=== PATIENT | female | born 2000 | race African-American/Black ===

== ENCOUNTER 2020-08-26 11:11 | Emergency (ER) | payer OTHER, SELFPAY ==
[2020-08-26 11:30] VITALS: BP 123/58; PULSE 81; RESP 16; TEMP 36.9; O2SAT 98; BMI 28.3
[2020-08-26] MEDS: Azithromycin 500 MG TABLET 1000 MG PO (12:28)
[2020-08-26] MEDS: cefTRIAXone sodium 250 MG, Lidocaine HCl 1 % MPF 0.9 ML IM (12:28)
--- NOTE | 2020-08-26 12:43 | US_ITS ---
EXAMINATION: US PELVIS TRANSVAGINAL CLINICAL INFORMATION: Bilateral adnexal tenderness. Vaginal discharge. Rule out TOA COMPARISON: None. TECHNIQUE: Transcutaneous and transvaginal pelvic ultrasound. Transvaginal scanning was performed after voiding to better evaluate the endometrium and adnexa. FINDINGS: The uterus measures 8.7 x 3.4 x 3.7 cm. The uterus is anteverted. No suspicious abnormalities region of the cervix. The uterine contour is smooth. The endometrium measures 0.8 cm. No focal abnormalities within the myometrium. The right ovary measures approximately 2.9 x 2.7 x 2.1 cm. The calculated right ovarian volume is approximately 8.6 mL. There is normal vascular flow present within the right ovary. There is a 1.6 x 1.1 x 1.3 cm dominant follicle/cyst. No abnormal mass. The left ovary measures 2.5 x 1.7 x 1.5 cm. The calculated left ovarian volume is approximately 3.3 mL. No abnormal left adnexal mass. Normal vascular flow. There is a small amount of free pelvic fluid. No tubo-ovarian abscess is appreciated. US/US pelvic ovarian doppler IMPRESSION: No tubo-ovarian abscess appreciated. Small amount of free fluid. No evidence of ovarian torsion
--- NOTE | 2020-08-26 12:44 | PC.NURSE ---
pelvic completed with pa. pt educated about seeing obgyn regularly if sexually active. pt laughing not enagaging in education. swabs obtained during pelvic sent to lab.
--- NOTE | 2020-08-26 12:53 | US_ITS ---
EXAMINATION: US PELVIS TRANSVAGINAL CLINICAL INFORMATION: Bilateral adnexal tenderness. Vaginal discharge. Rule out TOA COMPARISON: None. TECHNIQUE: Transcutaneous and transvaginal pelvic ultrasound. Transvaginal scanning was performed after voiding to better evaluate the endometrium and adnexa. FINDINGS: The uterus measures 8.7 x 3.4 x 3.7 cm. The uterus is anteverted. No suspicious abnormalities region of the cervix. The uterine contour is smooth. The endometrium measures 0.8 cm. No focal abnormalities within the myometrium. The right ovary measures approximately 2.9 x 2.7 x 2.1 cm. The calculated right ovarian volume is approximately 8.6 mL. There is normal vascular flow present within the right ovary. There is a 1.6 x 1.1 x 1.3 cm dominant follicle/cyst. No abnormal mass. The left ovary measures 2.5 x 1.7 x 1.5 cm. The calculated left ovarian volume is approximately 3.3 mL. No abnormal left adnexal mass. Normal vascular flow. There is a small amount of free pelvic fluid. No tubo-ovarian abscess is appreciated. US/US transvaginal IMPRESSION: No tubo-ovarian abscess appreciated. Small amount of free fluid. No evidence of ovarian torsion
--- NOTE | 2020-08-26 12:53 | US_ITS ---
EXAMINATION: US PELVIS TRANSVAGINAL CLINICAL INFORMATION: Bilateral adnexal tenderness. Vaginal discharge. Rule out TOA COMPARISON: None. TECHNIQUE: Transcutaneous and transvaginal pelvic ultrasound. Transvaginal scanning was performed after voiding to better evaluate the endometrium and adnexa. FINDINGS: The uterus measures 8.7 x 3.4 x 3.7 cm. The uterus is anteverted. No suspicious abnormalities region of the cervix. The uterine contour is smooth. The endometrium measures 0.8 cm. No focal abnormalities within the myometrium. The right ovary measures approximately 2.9 x 2.7 x 2.1 cm. The calculated right ovarian volume is approximately 8.6 mL. There is normal vascular flow present within the right ovary. There is a 1.6 x 1.1 x 1.3 cm dominant follicle/cyst. No abnormal mass. The left ovary measures 2.5 x 1.7 x 1.5 cm. The calculated left ovarian volume is approximately 3.3 mL. No abnormal left adnexal mass. Normal vascular flow. There is a small amount of free pelvic fluid. No tubo-ovarian abscess is appreciated. US/US pelvic complete IMPRESSION: No tubo-ovarian abscess appreciated. Small amount of free fluid. No evidence of ovarian torsion
--- NOTE | 2020-08-26 13:06 | ED_ITS ---
HPI - Abdominal Pain General Chief Complaint: Nausea/Vomiting/Diarrhea Stated Complaint: abd pain Time Seen by Provider: 08/26/20 11:34 Source: patient Mode of arrival: ambulatory History of Present Illness HPI narrative: 20-year-old female with a past medical history of asthma, recently treated for GC/chlamydia, presenting to ED complaining of vaginal discharge, vaginal spotting, and lower abdominal pain x couple days. Admits was recently treated for GC/chlamydia at [facility], and then had unprotected sexual intercourse with same partner in feels she contracted STIs again. LMP a few weeks ago. Also reports associated nausea. Denies fever, chills, vomiting, diarrhea, dysuria/hematuria MD elicited complaint: abdominal pain Related Data Allergies Allergy/AdvReac Type Severity Reaction Status Date / Time cucumber [CUCUMBER] Allergy Unknown RASH Unverified 06/15/20 16:58 peanut [PEANUT] Allergy Unknown RASH Unverified 06/15/20 16:58 Review of Systems Review of Systems Constitutional: No Weight loss, No Fever, No Chills Cardiovascular: No Chest Pain, No SOB Respiratory: No Cough, No Sputum, No Wheezing, No Smoke Exposure, No Dyspnea Gastrointestinal: + Nausea, No Vomiting, No Diarrhea, No Constipation, + Abdominal pain Genitourinary: + irregular bleeding, No Dysuria, No Urinary Frequency, No Hematuria, No Flank Pain, +vaginal discharge Skin: No Skin Lesions, No rash Yes all other systems are reviewed and are negative Physical Exam Vital Signs: Vital Signs: Last Vital Signs Temp 98.4 F 08/26/20 11:30 Pulse 81 08/26/20 11:30 Resp 16 08/26/20 11:30 BP 123/58 L 08/26/20 11:30 Pulse Ox 98 08/26/20 11:30 Body Mass Index 28.3 Const: General: cooperative and healthy appearing Orientation/consciousness: patient oriented x3 Limitations: no limitations HENMT: Head: Yes normal to inspection Ears: hearing grossly normal bilaterally General nose exam: Normal external nose present Face and sinus: Yes normal facial exam Eyes: General: appearance normal, both eyes and all related structures EOM: EOMs intact bilaterally Neck: Neck: Yes normal visual inspection Resp: Effort & Inspection: normal respiratory effort Cardio: Rate: regular rate GI: Inspection: Yes normal to inspection Palpation (GI): Soft to palpation, nontender, no guarding and not rigid : General: Yes no CVA tenderness External Female Exam: normal external appearance Speculum Exam - Vagina: abnormal vaginal discharge (thin) white and No vaginal bleeding Speculum Exam - Cervix: normal appearance of the cervix Bimanual exam- vagina & uterus: no cervical motion tenderness Bimanual Exam- Adnexa, other: tender bilaterally OB/external & speculum: No vaginal bleeding Back/Spine/Pelvis: Back: no CVA tenderness Skin: Rashes: no rashes Wounds: no wounds Neuro: General: patient oriented x3 Gait exam (Neuro): Normal gait present Extrem: General: Yes normal to inspection Course Course Course Narrative: -mild leukocytosis of 11.3, labs otherwise unremarkable, UA negative, urine negative -1416--ultrasound without TOA, small amount of free fluid. No evidence of torsion Lab and imaging results discussed with patient including worrisome signs and symptoms and strict return precautions. Patient verbalized understanding and is to follow-up with OBGYN MDM - Abdominal Pain MDM Narrative Medical decision making narrative: 20-year-old female with a past medical hi story of asthma, recently treated for GC/chlamydia, presenting to ED complaining of vaginal discharge, vaginal spotting, and lower abdominal pain x couple days. On exam VSS, NAD/well-appearing, abdomen soft/nontender, no CVAT. Thin white DC noted on pelvic exam, bilateral adnexal tenderness on bimanual, no CMT or abnormal masses. Concern for TOA vs ovarian cyst vs STI. Low concern for ovarian torsion/PID Patient agreeable to STI treatment with Rocephin and azithromycin in the ED Plan: Labs, UA, STI testing, pelvic ultrasound Lab Data Result diagrams: 08/26/20 13:02 08/26/20 13:02 Labs: Lab Results 08/26/20 08/26/20 08/26/20 Range/Units 13:02 13:02 13:02 WBC 11.3 H (4.8-10.8) X10*3/uL RBC 4.45 (4.20-5.50) X10*6/uL Hgb 13.4 (12.0-16.0) g/dl Hct 40.4 (37-47) % MCV 90.8 (80-98) fL MCH 30.1 (27.0-33.0) pg MCHC 33.2 (31.0-35.0) g/dl RDW 14.0 (11.0-16.0) % Plt Count 472 H (160-400) X10*3/uL MPV 9.1 L (9.4-12.3) fL Immature Gran % (Auto) 0.4 (0.0-0.4) % Neut % (Auto) 68.8 (45-73) % Lymph % (Auto) 21.1 (20-40) % [place] % (Auto) 3.7 (2-11) % Eos % (Auto) 5.6 H (0-4) % Baso % (Auto) 0.4 (0-2) % Lymph # (Auto) 2.4 (1.2-4.9) X10*3/uL [place] # (Auto) 0.4 (0.1-1.2) X10*3/uL Eos # (Auto) 0.6 H (0.0-0.4) X10*3/uL Baso # (Auto) 0.0 (0.0-0.2) X10*3/uL Abs Immat Gran (auto) 0.05 H (0.00-0.03) X10*3/uL Absolute Neuts (auto) 7.8 (2.0-8.3) X10*3/uL Absolute Nucleated RBC 0.000 (0.0-0.012) X10*3/uL Nucleated RBC % (auto) 0.0 (0.0-0.2) /100WBC Sodium 137 (135-145) mmol/L Potassium 4.7 (3.3-5.1) mmol/l Chloride 104 (96-108) mmol/L Carbon Dioxide 24 (22-29) mmol/L Anion Gap 14 (12-20) BUN 14 (9-16) mg/dL Creatinine 0.74 (0.5-1.4) mg/dL Estim Creat Clear Calc 115.7 Estimated GFR > 60 Random Glucose 88 (60-115) mg/dL Calcium 9.3 (8.4-10.2) mg/dL Total Bilirubin 0.4 (0.0-1.0) mg/dL Direct Bilirubin 0.2 (0.0-0.5) mg/dL AST 20 (5-31) U/L ALT 18 (0-31) U/L Alkaline Phosphatase 66 (39-117) U/L Total Protein 8.1 H (6.5-8.0) g/dL Albumin 4.5 (3.5-5.0) g/dL Urine Color YELLOW Urine Appearance CLEAR Urine pH 5.5 (5.0-8.0) Ur Specific [place] 1.025 (1.005-1.025) Urine Protein NEG (NEG-TRACE) MG/DL Urine Glucose (UA) NEG (NEG) MG/DL Urine Ketones NEG (NEG) MG/DL Urine Blood NEG (NEG) Urine Nitrite NEG (NEG) Ur Leukocyte Esterase NEG (NEG) Urine Test NEGATIVE (NEGATIVE) Discharge Plan Discharge Clinical Impression: STI (sexually transmitted infection), Vaginal discharge, Abdominal pain Patient Disposition: Home, Self-Care Instructions: Sexually Transmitted Diseases (ED) Additional Instructions: Your blood work and ultrasound were unremarkable today in the ED You were tested for multiple STIs, they take 2-3 days to result If something is positive you will get a phone call You were already treated for gonorrhea and chlamydia today in the ED You need to refrain from any sexual contact until her symptoms have resolved, and inform her partners of results If pain, discharge, or bleeding worsens or persists, you have fever, develop urine symptoms return to the ED Follow-up with OBGYN Referrals: Joseph Brewer MD [Physician] - 2 days PMF Past Medical History Attestation statement: The following information was validated with the patient. Medical History (Updated 08/26/20 @ 13:12 by TORIE Correa) Asthma Social History Social History Alcohol intake: never Smoked in Last 30 Days: No Use of substances other than those prescribed or required for medical reasons: No Advance Directives: No Advance Directives Information Provided: No
[2020-08-26 13:10] LABS: Basophils Percent Auto 0.4 % (0-2); Eosinophils Absolute Auto 0.6 X10*3/uL (0.0-0.4); Eosinophils Percent Auto 5.6 % (0-4); Glucose Urine UA NEG (NEG); Hematocrit 40.4 % (37-47); Hemoglobin 13.4 g/dl (12.0-16.0); Imm Gran Abs Auto 0.05 X10*3/uL (0.00-0.03); Imm Gran Pct Auto 0.4 % (0.0-0.4); Leukocyte Esterase Urine NEG (NEG); Lymphocytes Absolute Auto 2.4 X10*3/uL (1.2-4.9); Lymphocytes Percent Auto 21.1 % (20-40); MANUAL DIFF FLAG NO; Mean Corpuscular HGB Conc 33.2 g/dl (31.0-35.0); Mean Corpuscular Hemoglobin 30.1 pg (27.0-33.0); Mean Corpuscular Volume 90.8 fL (80-98); Mean Platelet Volume 9.1 fL (9.4-12.3); Monocytes Absolute Auto 0.4 X10*3/uL (0.1-1.2); Monocytes Percent Auto 3.7 % (2-11); Neutrophils Absolute Auto 7.8 X10*3/uL (2.0-8.3); Neutrophils Percent Auto 68.8 % (45-73); Nitrite Urine NEG (NEG); PH 5.5 (5.0-8.0); Platelet Count 472 X10*3/uL (160-400); Red Blood Count 4.45 X10*6/uL (4.20-5.50); Specific Gravity - Urine 1.025 (1.005-1.025); Urine Blood NEG (NEG); Urine Ketones NEG (NEG); Urine Protein NEG (NEG-TRACE); White Blood Count 11.3 X10*3/uL (4.8-10.8)
[2020-08-26 13:11] LABS: Appearance Urine CLEAR; Color Urine YELLOW; UPreg QC Valid YES
[2020-08-26 13:12] LABS: Urine Pregnancy NEGATIVE (NEGATIVE)
[2020-08-26 13:36] LABS: Alanine Aminotransferase 18 U/L (0-31); Albumin Level 4.5 g/dL (3.5-5.0); Alkaline Phosphatase 66 U/L (39-117); Anion Gap 14 (12-20); Aspartate Amino Transferase 20 U/L (5-31); Bilirubin Direct 0.2 mg/dL (0.0-0.5); Bilirubin Total 0.4 mg/dL (0.0-1.0); Blood Urea Nitrogen 14 mg/dL (9-16); Calcium 9.3 mg/dL (8.4-10.2); Carbon Dioxide 24 mmol/L (22-29); Chloride 104 mmol/L (96-108); Creatinine Clr Calc Pharmacy 115.7; Estimated Glomerular Filt Rate > 60; Glucose Random 88 mg/dL (60-115); Potassium 4.7 mmol/l (3.3-5.1); Sodium 137 mmol/L (135-145); Total Protein 8.1 g/dL (6.5-8.0)
[2020-08-26 14:53] LABS: CT PCR NOT DETECTED (Not Detect.); NG PCR NOT DETECTED (Not Detect.)
[2020-08-27 09:22] LABS: BV Int Neg Control Negative (Negative); BV Int Pos Control Positive (Positive)
== END 2020-08-26 14:30 | disposition home or self-care (01) ==
PROVIDERS: Physician Assistant; Emergency Provider Internal Medicine; PCP Specialist
DX: A56.02 Chlamydial vulvovaginitis (principal); N89.8 Other specified noninflammatory disorders of vagina; R10.9 Unspecified abdominal pain; Z20.2 Contact with and (suspected) exposure to infections with a predominantly sexual mode of transmission
CPT/HCPCS: 36415; 76830; 76856; 80048; 80076; 81003; 81025; 85025; 87480; 87491; 87510; 87591; 87660; 93975; 96372; 99283; 99284; J0696

== ENCOUNTER 2020-10-07 08:21 | Outpatient (REF) | payer OTHER, SELFPAY | END 2020-10-07 08:22 | disposition home or self-care (01) | LOC: HO.LAB 08:21 | PROVIDERS: Visit Provider Internal Medicine | DX: Z20.822 Contact with and (suspected) exposure to COVID-19 (principal) | CPT/HCPCS: 36415; C9803; U0003 ==

== ENCOUNTER 2020-11-07 14:28 | Emergency (ER) | payer OTHER, SELFPAY ==
[2020-11-07] VITALS (7 sets, daily range): BP systolic 109–133; BP diastolic 70–93; PULSE 67–92; RESP 16; TEMP 36.4–36.6; O2SAT 97–100; BMI 28.3
--- NOTE | ~2020-11-07 | US_ITS ---
EXAMINATION: US ABDOMEN LIMITED CLINICAL INFORMATION: Elevated lipase. Alcohol use. Nausea and vomiting.. COMPARISON: None TECHNIQUE: Real-time imaging of the right upper quadrant abdominal viscera. FINDINGS: PANCREAS: Heterogeneous parenchymal echogenicity, with. Tiny cystic foci beyond resolution of this exam LIVER: Normal. The liver is normal in size. The liver contour is normal. Parenchymal echogenicity is normal. No focal hepatic lesion. There is no intrahepatic biliary duct dilatation seen. GALLBLADDER: Normal. The gallbladder is physiologically distended without evidence of stones, sludge, polyps, wall thickening or pericholecystic fluid. COMMON BILE DUCT: Normal in caliber measuring 0.5 cm in diameter. RIGHT KIDNEY: Normal. No hydronephrosis. No renal calculi or focal parenchymal lesions. The kidney measures 11.7 cm in maximum dimension. FREE FLUID: None. US/US abdomen limited IMPRESSION: Heterogeneous pancreatic parenchymal echotexture, which is nonspecific, and possibly in part technical. Mild pancreatitis is considered. Exam otherwise unremarkable.
--- NOTE | 2020-11-07 17:39 | ED_ITS ---
HPI - Nausea/Vomiting/Diarrhea General Chief complaint: Nausea/Vomiting/Diarrhea Stated complaint: VOMITING Time Seen by Provider: 11/07/20 17:34 Source: patient Mode of arrival: ambulatory History of Present Illness HPI Narrative: 20-year-old female with a past medical history of asthma presenting to the ED complaining persistent nausea, vomiting, and generalized fatigue/weakness S/P drinking EtOH all night. Reports she is hung over. States drank a whole bottle of hard liquor last night. Has been unable to tolerate any p.o. today. Denies fall/trauma, dysuria/hematuria, fever, chills, suspicious food intake, recent travel. LMP last month. Denies illicit drug use MD elicited complaint: nausea, vomiting and abdominal pain Related Data Previous Rx's Medication Instructions Recorded acetaminophen [Tylenol Extra 500 mg PO Q6H PRN #20 tab 11/07/20 Strength] alum-mag hydroxide-simeth [Maalox 5 ml PO 5XD PRN #3000 ml 11/07/20 Advanced] famotidine [Pepcid] 20 mg PO DAILY #14 tab 11/07/20 ondansetron HCl [Zofran] 4 mg PO Q8H PRN #10 tab 11/07/20 Allergies Allergy/AdvReac Type Severity Reaction Status Date / Time cucumber [CUCUMBER] Allergy Unknown RASH Verified 11/07/20 14:36 peanut [PEANUT] Allergy Unknown RASH Verified 11/07/20 14:36 Review of Systems Review of Systems: Constitutional: No Weight loss, No Fever, No Chills Cardiovascular: No Chest Pain, No SOB Respiratory: No Cough, No Sputum Gastrointestinal: + Nausea, + Vomiting, No Diarrhea, No Constipation, +Abdominal pain Genitourinary: No irregular bleeding, No Dysuria, No Urinary Frequency, No Hematuria, No Flank Pain Musculoskeletal: No joint pain, No Myalgias, No Joint Swelling Skin: No Skin Lesions, No rash Yes all other systems are reviewed and are negative PMFSH Past Medical History Attestation statement: The following information was validated with the patient. Medical History (Updated 11/07/20 @ 19:22 by TORIE Correa) Asthma Social History Social History Alcohol intake: never Smoking Status: Never smoker Use of substances other than those prescribed or required for medical reasons: Yes Substance Use Type: Marijuana Substance Use Frequency: Daily Advance Directives: No Advance Directives Information Provided: No Physical Exam Vital Signs: Vital Signs: Last Vital Signs Temp 97.7 F 11/07/20 20:23 Pulse 70 11/07/20 20:23 Resp 16 11/07/20 20:23 BP 125/84 11/07/20 20:23 Pulse Ox 100 11/07/20 20:23 Body Mass Index 28.3 Const: General: cooperative and healthy appearing Orientation/consciousness: patient oriented x3 Limitations: no limitations HENMT: Head: Yes normal to inspection Ears: hearing grossly normal bilaterally General nose exam: Normal external nose present Face and sinus: Yes normal facial exam Eyes: General: appearance normal, both eyes and all related structures Neck: Neck: Yes normal visual inspection Resp: Effort & Inspection: normal respiratory effort Cardio: Rate: regular rate GI: Inspection: Yes normal to inspection Palpation (GI): Soft to palpation, Tenderness to palpation present (GI) in the epigastrum, no guarding and not rigid : General: Yes no CVA tenderness Back/Spine/Pelvis: Back: no CVA tenderness Skin: Rashes: no rashes Wounds: no wounds Neuro: General: patient oriented x3 Extrem: General: Yes normal to inspection Course Course Course Narrative: -leukocytosis of 14.9 likely from nausea/vomiting -lipase elevated 430, anticipated from EtOH use, will obtain abdomen ultrasound to rule out complicated pancreatitis. Patient is tolerating p.o., minimally tender on exam, nontoxic appearing, no need for CT at this time -UA and negative -2114-ultrasound showing mild pancreatitis. Patient is nontoxic appearing, tolerated p.o. to/crackles in the ED. Labs/imaging discussed including refraining from EtOH drinking. Discussed worrisome signs and symptoms including constant/unremitting pain/nausea/vomiting, or inability to tolerate p.o., Patient verbalized understanding feel safe for discharge home MDM - Nausea/Vomiting/Diarrhea MDM Narrative Medical decision making narrative: 20-year-old female with a past medical history of asthma presenting to the ED complaining persistent nausea, vomiting, and generalized fatigue/weakness S/P drinking EtOH all night. On exam VSS, NAD/well-appearing, nontoxic, abdomen soft, +mild epigastric ttp. Concern for dehydration/metabolic abnormalities vs pancreatitis. Rule out . Low concern for appendicitis/diverticulitis or cholecystitis Plan: Labs, IVF, p.o. challenge, re-evaluate Differential Diagnosis Differential diagnosis: Likely food poisoning, drug-induced nausea and vomiting and dehydration Medical Records Attestation: I reviewed the patient's medical records. Lab Data Attestation: I reviewed the patient's lab results. Result diagrams: 11/07/20 18:08 11/07/20 18:08 Labs: Lab Results 11/07/20 11/07/20 11/07/20 Range/Units 18:08 18:08 18:08 WBC 14.9 H (4.8-10.8) X10*3/uL RBC 4.79 (4.20-5.50) X10*6/uL Hgb 14.4 (12.0-16.0) g/dl Hct 43.7 (37-47) % MCV 91.2 (80-98) fL MCH 30.1 (27.0-33.0) pg MCHC 33.0 (31.0-35.0) g/dl RDW 13.4 (11.0-16.0) % Plt Count 356 (160-400) X10*3/uL MPV 10.0 (9.4-12.3) fL Immature Gran % (Auto) 0.3 (0.0-0.4) % Neut % (Auto) 78.5 H (45-73) % Lymph % (Auto) 14.7 L (20-40) % [place] % (Auto) 5.7 (2-11) % Eos % (Auto) 0.5 (0-4) % Baso % (Auto) 0.3 (0-2) % Lymph # (Auto) 2.2 (1.2-4.9) X10*3/uL [place] # (Auto) 0.9 (0.1-1.2) X10*3/uL Eos # (Auto) 0.1 (0.0-0.4) X10*3/uL Baso # (Auto) 0.0 (0.0-0.2) X10*3/uL Abs Immat Gran (auto) 0.04 H (0.00-0.03) X10*3/uL Absolute Neuts (auto) 11.7 H (2.0-8.3) X10*3/uL Absolute Nucleated RBC 0.000 (0.0-0.012) X10*3/uL Nucleated RBC % (auto) 0.0 (0.0-0.2) /100WBC Hold Blue Top SEE NOTE Sodium 140 (135-145) mmol/L Potassium 4.5 (3.3-5.1) mmol/L Chloride 101 (96-108) mmol/L Carbon Dioxide 24 (22-29) mmol/L Anion Gap 20 (12-20) BUN 9 (9-16) mg/dL Creatinine 0.81 (0.5-1.4) mg/dL Estim Creat Clear Calc 105.7 Estimated GFR > 60 Random Glucose 77 (60-115) mg/dL Calcium 9.8 (8.4-10.2) mg/dL Magnesium 2.2 (1.6-2.6) mg/dL Total Bilirubin 0.5 (0.0-1.0) mg/dL Direct Bilirubin 0.2 (0.0-0.5) mg/dL AST 30 D (5-31) U/L ALT 21 (0-31) U/L Alkaline Phosphatase 80 D (39-117) U/L Total Protein 8.9 H (6.5-8.0) g/dL Albumin 5.0 (3.5-5.0) g/dL Lipase 430 H (8-78) U/L Urine Color Urine Appearance Urine pH (5.0-8.0) Ur Specific [place] (1.005-1.025) Urine Protein (NEG-TRACE) MG/DL Urine Glucose (UA) (NEG) MG/DL Urine Ketones (NEG) MG/DL Urine Blood (NEG) Urine Nitrite (NEG) Ur Leukocyte Esterase (NEG) Urine RBC (0) /HPF Urine WBC (0-4) /HPF Ur Squamous Epith Cells /LPF Urine Bacteria /LPF Urine Test (NEGATIVE) 11/07/20 Range/Units 18:08 WBC (4.8-10.8) X10*3/uL RBC (4.20-5.50) X10*6/uL Hgb (12.0-16.0) g/dl Hct (37-47) % MCV (80-98) fL MCH (27.0-33.0) pg MCHC (31.0-35.0) g/dl RDW (11.0-16.0) % Plt Count (160-400) X10*3/uL MPV (9.4-12.3) fL Immature Gran % (Auto) (0.0-0.4) % Neut % (Auto) (45-73) % Lymph % (Auto) (20-40) % [place] % (Auto) (2-11) % Eos % (Auto) (0-4) % Baso % (Auto) (0-2) % Lymph # (Auto) (1.2-4.9) X10*3/uL [place] # (Auto) (0.1-1.2) X10*3/uL Eos # (Auto) (0.0-0.4) X10*3/uL Baso # (Auto) (0.0-0.2) X10*3/uL Abs Immat Gran (auto) (0.00-0.03) X10*3/uL Absolute Neuts (auto) (2.0-8.3) X10*3/uL Absolute Nucleated RBC (0.0-0.012) X10*3/uL Nucleated RBC % (auto) (0.0-0.2) /100WBC Hold Blue Top Sodium (135-145) mmol/L Potassium (3.3-5.1) mmol/L Chloride (96-108) mmol/L Carbon Dioxide (22-29) mmol/L Anion Gap (12-20) BUN (9-16) mg/dL Creatinine (0.5-1.4) mg/dL Estim Creat Clear Calc Estimated GFR Random Glucose (60-115) mg/dL Calcium (8.4-10.2) mg/dL Magnesium (1.6-2.6) mg/dL Total Bilirubin (0.0-1.0) mg/dL Direct Bilirubin (0.0-0.5) mg/dL AST (5-31) U/L ALT (0-31) U/L Alkaline Phosphatase (39-117) U/L Total Protein (6.5-8.0) g/dL Albumin (3.5-5.0) g/dL Lipase (8-78) U/L Urine Color YELLOW Urine Appearance CLEAR Urine pH 7.5 (5.0-8.0) Ur Specific [place] 1.020 (1.005-1.025) Urine Protein 1+ H (NEG-TRACE) MG/DL Urine Glucose (UA) NEG (NEG) MG/DL Urine Ketones NEG (NEG) MG/DL Urine Blood NEG (NEG) Urine Nitrite NEG (NEG) Ur Leukocyte Esterase NEG (NEG) Urine RBC 0-2 (0) /HPF Urine WBC 0 (0-4) /HPF Ur Squamous Epith Cells 1+ /LPF Urine Bacteria 1+ /LPF Urine Test NEGATIVE (NEGATIVE) Discharge Plan Discharge Clinical Impression: Acute pancreatitis Qualifiers: Pancreatitis type: alcohol induced Acute pancreatitis complication: unspecified Qualified Code(s): K85.20 - Alcohol induced acute pancreatitis without necrosis or infection Patient Disposition: Home, Self-Care Instructions: Pancreatitis (ED) Additional Instructions: Do not drink alcohol. You have an infection/inflammation of her pancreas from alcohol use. It is important that you are staying hydrated, drink plenty of fluids Zofran as antinausea medication, take as needed Follow-up with her primary care doctor as well as a GI doctor If you have persistent nausea/vomiting, develops fever, constant worsening/unbearable abdominal pain, or unable to eat or drink return to the ED immediately Prescriptions: New ondansetron HCl [Zofran] 4 mg tablet 4 mg PO Q8H PRN (Reason: nausea and vomiting) Qty: 10 RF: 0 acetaminophen [Tylenol Extra Strength] 500 mg tablet 500 mg PO Q6H PRN (Reason: pain or fever) Qty: 20 RF: 0 alum-mag hydroxide-simeth [Maalox Advanced] 200-200-20 mg/5 mL suspension 5 ml PO 5XD PRN (Reason: indigestion) Qty: 3000 RF: 0 famotidine [Pepcid] 20 mg tablet 20 mg PO DAILY Qty: 14 RF: 0 Referrals: Jackie Garner MD [Primary Care Provider] - 2 days Ruth Valdez MD [Physician] - 1 week
[2020-11-07] MEDS: 0.9 % Sodium Chloride 1,000 ML 999 ML IVCONT ×2 (18:09→20:23)
[2020-11-07] MEDS: Famotidine/PF 20 MG/2 ML VIAL IVPUSH (18:10)
[2020-11-07] MEDS: ondansetron HCL 4 MG/2 ML VIAL IVPUSH (18:10)
[2020-11-07] MEDS: Lidocaine HCl Viscous 2 % 15 ML SOLUTION MUCOUS MEM (18:10)
[2020-11-07 18:14] LABS: MANUAL DIFF FLAG NO
[2020-11-07 18:17] LABS: Glucose Urine UA NEG (NEG); Leukocyte Esterase Urine NEG (NEG); Nitrite Urine NEG (NEG); PH 7.5 (5.0-8.0); Urine Blood NEG (NEG); Urine Ketones NEG (NEG); Urine Protein 1+ MG/DL (NEG-TRACE)
[2020-11-07 18:18] LABS: Appearance Urine CLEAR; Color Urine YELLOW
[2020-11-07 18:19] LABS: UPreg QC Valid YES; Urine Pregnancy NEGATIVE (NEGATIVE)
[2020-11-07 18:20] LABS: Basophils Percent Auto 0.3 % (0-2); Eosinophils Absolute Auto 0.1 X10*3/uL (0.0-0.4); Eosinophils Percent Auto 0.5 % (0-4); Hematocrit 43.7 % (37-47); Hemoglobin 14.4 g/dl (12.0-16.0); Imm Gran Abs Auto 0.04 X10*3/uL (0.00-0.03); Imm Gran Pct Auto 0.3 % (0.0-0.4); Lymphocytes Absolute Auto 2.2 X10*3/uL (1.2-4.9); Lymphocytes Percent Auto 14.7 % (20-40); Mean Corpuscular Hemoglobin 30.1 pg (27.0-33.0); Mean Corpuscular Volume 91.2 fL (80-98); Monocytes Absolute Auto 0.9 X10*3/uL (0.1-1.2); Monocytes Percent Auto 5.7 % (2-11); Neutrophils Absolute Auto 11.7 X10*3/uL (2.0-8.3); Neutrophils Percent Auto 78.5 % (45-73); Platelet Count 356 X10*3/uL (160-400); Red Blood Count 4.79 X10*6/uL (4.20-5.50); Red Cell Distribution Width 13.4 % (11.0-16.0); White Blood Count 14.9 X10*3/uL (4.8-10.8)
[2020-11-07 18:24] LABS: Bacteria Urine 1+ /LPF; RBC Urine 0-2 /HPF (0); Squamous Epithelial Cell Urine 1+ /LPF; WBC Urine 0 /HPF (0-4)
[2020-11-07 18:46] LABS: Alanine Aminotransferase 21 U/L (0-31); Alkaline Phosphatase 80 U/L (39-117); Anion Gap 20 (12-20); Aspartate Amino Transferase 30 U/L (5-31); Bilirubin Direct 0.2 mg/dL (0.0-0.5); Bilirubin Total 0.5 mg/dL (0.0-1.0); Blood Urea Nitrogen 9 mg/dL (9-16); Calcium 9.8 mg/dL (8.4-10.2); Carbon Dioxide 24 mmol/L (22-29); Chloride 101 mmol/L (96-108); Creatinine Clr Calc Pharmacy 105.7; Estimated Glomerular Filt Rate > 60; Glucose Random 77 mg/dL (60-115); Magnesium 2.2 mg/dL (1.6-2.6); Potassium 4.5 mmol/L (3.3-5.1); Sodium 140 mmol/L (135-145); Total Protein 8.9 g/dL (6.5-8.0)
[2020-11-07 19:03] LABS: Lipase 430 U/L (8-78)
--- NOTE | 2020-11-07 20:22 | PC.NURSE ---
pt returned from ultrasound. reports nausea resolved. no episodes of vomiting since arrival. denies pain at this time.
== END 2020-11-07 21:35 | disposition home or self-care (01) ==
PROVIDERS: Physician Assistant; Emergency Provider Emergency Medicine; PCP Specialist
DX: K85.20 Alcohol induced acute pancreatitis without necrosis or infection (principal); R11.2 Nausea with vomiting, unspecified; Z79.899 Other long term (current) drug therapy
CPT/HCPCS: 36415; 76705; 80048; 80076; 81001; 81025; 83690; 83735; 85025; 96361; 96374; 96375; 99284; J2405

== ENCOUNTER 2021-01-18 11:03 | Outpatient (REF) | payer OTHER, SELFPAY ==
[2021-01-18 12:21] LABS: COVID-19 Test Negative (Negative)
== END 2021-01-18 11:04 | disposition home or self-care (01) ==
LOC: HO.LAB 11:03
PROVIDERS: Visit Provider Internal Medicine
DX: Z20.822 Contact with and (suspected) exposure to COVID-19 (principal)
CPT/HCPCS: 36415; 87635; C9803

== ENCOUNTER 2021-03-07 12:39 | Outpatient (REF) | payer OTHER, SELFPAY | END 2021-03-07 12:40 | disposition home or self-care (01) | LOC: HO.LAB 12:39 | PROVIDERS: PCP Specialist; Visit Provider Internal Medicine | DX: Z20.822 Contact with and (suspected) exposure to COVID-19 (principal) | CPT/HCPCS: U0003; U0005 ==

== ENCOUNTER 2021-06-12 15:47 | Outpatient (REF) | payer OTHER, SELFPAY | END 2021-06-12 15:48 | disposition home or self-care (01) | LOC: HO.LAB 15:47 | PROVIDERS: Visit Provider Internal Medicine | DX: Z20.822 Contact with and (suspected) exposure to COVID-19 (principal) | CPT/HCPCS: C9803; U0003; U0005 ==

== ENCOUNTER 2021-08-09 13:06 | Emergency (ER) | payer OTHER, SELFPAY ==
[2021-08-09 13:36] VITALS: BP 116/71; PULSE 75; RESP 18; TEMP 36.8; O2SAT 100; BMI 28.3
[2021-08-09 15:23] LABS: MANUAL DIFF FLAG NO
[2021-08-09 15:26] LABS: Basophils Absolute Auto 0.1 X10*3/uL (0.0-0.2); Basophils Percent Auto 0.5 % (0-2); Eosinophils Absolute Auto 0.4 X10*3/uL (0.0-0.4); Eosinophils Percent Auto 4.2 % (0-4); Hematocrit 40.4 % (37.0-47.0); Imm Gran Abs Auto 0.02 X10*3/uL (0.00-0.03); Imm Gran Pct Auto 0.2 % (0.0-0.4); Lymphocytes Absolute Auto 2.4 X10*3/uL (1.2-4.9); Lymphocytes Percent Auto 25.2 % (20-40); Mean Corpuscular HGB Conc 32.2 g/dl (31.0-35.0); Mean Corpuscular Hemoglobin 29.5 pg (27.0-33.0); Mean Corpuscular Volume 91.6 fL (80.0-98.0); Mean Platelet Volume 9.7 fL (9.4-12.3); Monocytes Absolute Auto 0.6 X10*3/uL (0.1-1.2); Monocytes Percent Auto 6.1 % (2-11); Neutrophils Absolute Auto 6.2 x10*3/uL (2.0-8.3); Neutrophils Percent Auto 63.8 % (45-73); Platelet Count 373 X10*3/uL (160-400); Red Blood Count 4.41 X10*6/uL (4.20-5.50); Red Cell Distribution Width 13.1 % (11.0-16.0); White Blood Count 9.7 X10*3/uL (4.8-10.8)
[2021-08-09 15:34] LABS: Appearance Urine CLEAR; Color Urine YELLOW; Glucose Urine UA NEG (NEG); Leukocyte Esterase Urine NEG (NEG); Nitrite Urine NEG (NEG); Specific Gravity - Urine >= 1.030 (1.005-1.025); Urine Blood NEG (NEG); Urine Ketones NEG (NEG); Urine Protein NEG (NEG-TRACE)
[2021-08-09 15:44] LABS: Alanine Aminotransferase 15 U/L (0-31); Albumin Level 4.8 g/dL (3.5-5.0); Alkaline Phosphatase 71 U/L (39-117); Anion Gap 11 (12-20); Aspartate Amino Transferase 19 U/L (5-31); Bilirubin Total 0.4 mg/dL (0.0-1.0); Blood Urea Nitrogen 10 mg/dL (9-16); Calcium 9.9 mg/dL (8.4-10.2); Carbon Dioxide 28 mmol/L (22-29); Chloride 102 mmol/L (96-108); Creatinine Clr Calc Pharmacy 111.8; Estimated Glomerular Filt Rate > 60; Glucose Random 85 mg/dL (60-115); Potassium 4.6 mmol/L (3.3-5.1); Sodium 136 mmol/L (135-145); Total Protein 8.2 g/dL (6.5-8.0)
== END 2021-08-09 16:45 | disposition left against medical advice (07) ==
PROVIDERS: Emergency Provider Emergency Medicine; PCP Specialist
DX: R10.9 Unspecified abdominal pain (principal)
CPT/HCPCS: 36415; 80053; 81003; 85025; 99283

== ENCOUNTER 2021-08-29 16:03 | Emergency (ER) | payer OTHER, SELFPAY ==
--- NOTE | ~2021-08-29 | XR_ITS ---
EXAMINATION: XR CHEST CLINICAL INFORMATION: Asthma COMPARISON: Chest x-ray 10/13/2019 TECHNIQUE: Frontal view of the chest was obtained. 4:36 PM FINDINGS: No significant abnormality is noted involving the heart, lungs, mediastinum, bony thorax or soft tissues. XR/XR chest 1V IMPRESSION: Unremarkable examination.
[2021-08-29 16:11] VITALS: BP 116/82; PULSE 116; RESP 20; TEMP 36.9; O2SAT 97; BMI 28.3
== END 2021-08-29 18:19 | disposition left against medical advice (07) ==
LOC: HO.ED 17:16
PROVIDERS: Emergency Provider Emergency Medicine; PCP Specialist
DX: J45.909 Unspecified asthma, uncomplicated (principal); R00.0 Tachycardia, unspecified
CPT/HCPCS: 71045; 99282; 99283

== ENCOUNTER 2021-08-29 21:33 | Inpatient (IN) | payer OTHER, SELFPAY ==
[2021-08-29 21:34] VITALS: BP 125/64; PULSE 137; RESP 26; TEMP 36.9; O2SAT 98; BMI 28.3
--- NOTE | 2021-08-29 22:30 | ED_ITS ---
HPI - Asthma General Chief Complaint: Asthma Stated Complaint: cough asthma Time Seen by Provider: 08/29/21 22:24 Source: patient Mode of arrival: ambulatory Limitations: no limitations History of Present Illness complaint: asthma attack , shortness of breath and wheezing Onset (ago): day(s) (started today) Severity: moderate Context: none known Associated symptoms: dry cough Asthma History: childhood onset Treatments Prior to Arrival: inhaled bronchodilator Related Data Home Medications Medication Instructions Recorded Confirmed No Known Home Meds 08/30/21 08/30/21 Allergies Allergy/AdvReac Type Severity Reaction Status Date / Time cucumber [CUCUMBER] Allergy Unknown RASH Verified 08/09/21 13:35 peanut [PEANUT] Allergy Unknown RASH Verified 08/09/21 13:35 Review of Systems Review of Systems: Constitutional : No Fever, No Chills ENT/Mouth : No Hoarseness, No sore throat, No Rhinorrhea Eyes: No Redness, No Discharge, No Vision Changes Cardiovascular : No Chest Pain, positive SOB, positive Dyspnea on Exertion, No Edema Respiratory : positive Cough, No Sputum, positive Wheezing, Gastrointestinal : No Nausea, No Vomiting, No Diarrhea, No abdominal Pain Genitourinary : No Dysuria, No Hematuria Musculoskeletal : No joint pain, No Myalgias Skin : No rash Neuro : No Weakness, No Numbness, No Headache Psych : No anxiety, depression Heme/Lymph: No Bruising, No Bleeding Endocrine : No Polyuria, No Polydipsia All other systems reviewed and are negative [facility] Past Medical History Attestation statement: The following information was validated with the patient. Medical History Asthma Social History Social History Alcohol intake: never Substance Use Type: Marijuana Advance Directives: No Advance Directives Information Provided: Yes Patient : No Physical Exam Vital Signs: Vital Signs: Last Vital Signs Temp 98.4 F 08/29/21 21:34 Pulse 117 H 08/29/21 22:44 Resp 26 H 08/29/21 21:34 BP 125/64 08/29/21 21:34 Pulse Ox 98 08/29/21 21:34 BMI result Body Mass Index 28.3 Appearance: Alert. Oriented X3. Mild acute distress. Eyes: Pupils equal, round and reactive to light. ENT: Pharynx normal. Neck: Normal inspection. Neck supple. CVS: tachycardic heart rate and rhythm. Pulses normal. Respiratory: Mild respiratory distress - retractions and tachypnea. Breath sounds diminished throughout with diffuse end exp wheezes Abdomen: Soft and nontender. Skin: Skin warm and dry. Normal skin color. Normal skin turgor. Extremities: No lower extremity edema. No calf ttp Neuro: Oriented X 3. No motor deficit. No sensory deficit. Course Course Course Narrative: still very tight and wheezy will admit for further treatments MDM - Asthma MDM Narrative Medical decision making narrative: 21 yo female with hx of asthma no prior intubations reports attack since this AM not responding to neb treatments at home at this time hour long 10mg neb, IV steroids, IV magnesium, had CXR earlier today that was negative, labs and COVID test. Dispo per results and findings. Lab Data Result diagrams: 08/29/21 22:35 08/29/21 22:35 Labs: Lab Results 08/29/21 08/29/21 08/29/21 Range/Units 22:35 22:35 22:35 WBC 13.9 H (4.8-10.8) X10*3/uL RBC 4.12 L (4.20-5.50) X10*6/uL Hgb 12.6 (12.0-16.0) g/dl Hct 36.8 L (37.0-47.0) % MCV 89.3 (80.0-98.0) fL MCH 30.6 (27.0-33.0) pg MCHC 34.2 (31.0-35.0) g/dl RDW 12.9 (11.0-16.0) % Plt Count 330 (160-400) X10*3/uL MPV 9.5 (9.4-12.3) fL Immature Gran % (Auto) 0.3 (0.0-0.4) % Neut % (Auto) 78.9 H (45-73) % Lymph % (Auto) 9.6 L (20-40) % [place] % (Auto) 8.4 (2-11) % Eos % (Auto) 2.4 (0-4) % Baso % (Auto) 0.4 (0-2) % Lymph # (Auto) 1.3 (1.2-4.9) X10*3/uL [place] # (Auto) 1.2 (0.1-1.2) X10*3/uL Eos # (Auto) 0.3 (0.0-0.4) X10*3/uL Baso # (Auto) 0.1 (0.0-0.2) X10*3/uL Abs Immat Gran (auto) 0.04 H (0.00-0.03) X10*3/uL Absolute Neuts (auto) 11.0 H (2.0-8.3) x10*3/uL Absolute Nucleated RBC 0.000 (0.0-0.012) X10*3/uL Nucleated RBC % (auto) 0.0 (0.0-0.2) /100WBC Sodium 138 (135-145) mmol/L Potassium 4.1 (3.3-5.1) mmol/L Chloride 106 (96-108) mmol/L Carbon Dioxide 20 L (22-29) mmol/L Anion Gap 16 (12-20) BUN 8 L (9-16) mg/dL Creatinine 0.82 (0.5-1.4) mg/dL Estim Creat Clear Calc 103.5 Estimated GFR > 60 Random Glucose 79 (60-115) mg/dL Calcium 9.7 (8.4-10.2) mg/dL COVID-19 (MAURY) Negative (Negative) COVID-19 Clin Com See Note ECG Data Attestation: I personally reviewed and interpreted this ECG as follows: ECG interpretation date: 08/30/21 ECG interpretation time: 00:11 Interpretation: Rate: 134 Rhythm: sinus tachycardia [place]: normal Normal P waves. Normal JADEN. Normal QRS complex. ST T wave : nonspecific, no RUTH qTC: normal prior studies: no sig ischemia The study has been interpreted contemporaneously by me. . Critical Care Time Critical Care Time Critical Care Time: Yes Total Critical Care Time: 45 Attestation: repeat assessments, hour long neb treatments I attest to this time spent taking care of the patient Discharge Plan Discharge Clinical Impression: Asthma with acute exacerbation Qualifiers: Asthma severity: moderate Asthma persistence: persistent Qualified Code(s): J45.41 - Moderate persistent asthma with (acute) exacerbation Patient Disposition: Admitted As Inpatient
[2021-08-29 22:39] LABS: Basophils Absolute Auto 0.1 X10*3/uL (0.0-0.2); Basophils Percent Auto 0.4 % (0-2); Eosinophils Absolute Auto 0.3 X10*3/uL (0.0-0.4); Eosinophils Percent Auto 2.4 % (0-4); Hematocrit 36.8 % (37.0-47.0); Hemoglobin 12.6 g/dl (12.0-16.0); Imm Gran Abs Auto 0.04 X10*3/uL (0.00-0.03); Imm Gran Pct Auto 0.3 % (0.0-0.4); Lymphocytes Absolute Auto 1.3 X10*3/uL (1.2-4.9); Lymphocytes Percent Auto 9.6 % (20-40); MANUAL DIFF FLAG NO; Mean Corpuscular HGB Conc 34.2 g/dl (31.0-35.0); Mean Corpuscular Hemoglobin 30.6 pg (27.0-33.0); Mean Corpuscular Volume 89.3 fL (80.0-98.0); Mean Platelet Volume 9.5 fL (9.4-12.3); Monocytes Absolute Auto 1.2 X10*3/uL (0.1-1.2); Monocytes Percent Auto 8.4 % (2-11); Neutrophils Percent Auto 78.9 % (45-73); Platelet Count 330 X10*3/uL (160-400); Red Blood Count 4.12 X10*6/uL (4.20-5.50); Red Cell Distribution Width 12.9 % (11.0-16.0); White Blood Count 13.9 X10*3/uL (4.8-10.8)
[2021-08-29] MEDS: Magnesium Sulfate/H2O 2 GM/50 ML PIGGYBACK IV (22:40)
[2021-08-29] MEDS: methylPREDNISolone Sod Succ 125 MG/2 ML VIAL IVPUSH (22:42)
[2021-08-29] MEDS: Albuterol Sulfate (0.083%) 2.5 MG/3 ML VIAL.NEB 10 MG INHALE (22:43)
[2021-08-29 22:44] VITALS: PULSE 117; O2SAT 98
[2021-08-29] MEDS: Benzonatate 100 MG CAPSULE PO (22:44)
[2021-08-29 22:52] LABS: Anion Gap 16 (12-20); Blood Urea Nitrogen 8 mg/dL (9-16); Calcium 9.7 mg/dL (8.4-10.2); Carbon Dioxide 20 mmol/L (22-29); Chloride 106 mmol/L (96-108); Creatinine Clr Calc Pharmacy 103.5; Estimated Glomerular Filt Rate > 60; Glucose Random 79 mg/dL (60-115); Potassium 4.1 mmol/L (3.3-5.1); Sodium 138 mmol/L (135-145)
[2021-08-29 23:02] LABS: COVID-19 Test Negative (Negative)
[2021-08-29] MEDS: HYDROcodone/Homat 5/1.5/5 ML 5 ML SYRUP PO (23:29)
[2021-08-30] VITALS (10 sets, daily range): BP systolic 99–146; BP diastolic 60–86; PULSE 84–113; RESP 18–23; TEMP 36.3–37.2; O2SAT 88–99; BMI 28.0
--- NOTE | 2021-08-30 00:02 | ECG_ITS ---
Test Reason : TACHY Blood Pressure : / mmHG Vent. Rate : 134 BPM Atrial Rate : 134 BPM P-R Int : 118 ms QRS Dur : 080 ms QT Int : 308 ms P-R-T Axes : 080 088 036 degrees QTc Int : [address] & T wave abnormality, consider inferior ischemia Abnormal ECG No previous ECGs available Referred By: Ann Marie Goodman Electronically Signed By:SANIA GORMAN
--- NOTE | 2021-08-30 00:04 | PM.IMHP ---
History of Present Illness Date of Service: 08/30/21 Chief Complaint: SOB 21-year-old female with history of asthma presents to the hospital with complaints of shortness of breath wheezing cough for the past 2 days. Patient reports that last night was very severe where she could not sleeve, she tried her DuoNeb, albuterol inhalers with no success at relieving her symptoms are for decided to come to the hospital. Patient denies any fever but has chills, cough is dry and nonproductive, has no headache no change in vision, no dizziness, no lightheadedness, no chest pain, no abdominal pain nausea or vomiting, no diarrhea constipation, no urinary symptoms and no lower extremity edema On arrival to the ED patient hemodynamically stable with elevated heart rate of 116 that is now normalized Labs are unremarkable COVID-19 patient given multiple breathing treatments as well as high-dose steroids with no significant improvement of her symptoms therefore she will be admitted for further management of her asthma exacerbation Review of Systems Review of Systems: Yes all other systems are reviewed and are negative [facility] Medical History Asthma Family History (Updated 08/30/21 @ 06:30 by Salvador Lindo MD) Other No pertinent family history Surgical History (Updated 08/30/21 @ 06:30 by Salvador Lindo MD) No pertinent past surgical history Social History Household Members: None Housing: Homeless Do you presently have visiting nurse or other home services: No Alcohol intake: never Patient Tobacco Use Status: Never used Tobacco Second Hand Smoke Exposure: No Use of substances other than those prescribed or required for medical reasons: No Substance Use Type: Marijuana Substance Use Type Other:: markus Substance Use Frequency: Weekly Last Used Substance: Days (ago) Currently Displaying Signs/Symptoms of Drug Intoxication Withdrawal: No Any prior treatment program specific to substance use: No Have you been hit, kicked, punched, or otherwise hurt by someone within the past year? If so, by whom?: No Do you feel safe in your current relationship?: No Current Relationship Is there a partner from a previous relationship who is making you feel unsafe now?: No Are you made to feel afraid or neglected: No Advance Directives: No Advance Directives Information Provided: Yes Do you have thoughts of harming others: None Do you have a plan to hurt others: No Plan Recently lost weight without trying: No Eating poorly because of decreased appetite: Yes Nutrition Risks: No Nutritional Risk Patient : No : No Poor oral hygiene: No Meds Allergies Allergy/AdvReac Type Severity Reaction Status Date / Time cucumber [CUCUMBER] Allergy Unknown RASH Verified 08/09/21 13:35 peanut [PEANUT] Allergy Unknown RASH Verified 08/09/21 13:35 Active Medications: Current Medications Magnesium Sulfate (Magnesium Sulfate/H2o) 2 gm in 50 mls @ 25 mls/hr IV ONCE ONE Stop: 08/30/21 00:23 Last Admin: 08/29/21 22:40 Dose: 25 mls/hr Documented by: Home Medications Medication Instructions Recorded Confirmed Last Taken Type No Known Home Meds 08/30/21 08/30/21 Unknown History Physical Exam Vital Signs and Narrative: Vital Signs: Last Vital Signs Temp 98.4 F 08/29/21 21:34 Pulse 117 H 08/29/21 22:44 Resp 26 H 08/29/21 21:34 BP 125/64 08/29/21 21:34 Pulse Ox 98 08/29/21 21:34 BMI result Body Mass Index 28.3 Const: General: cooperative and no acute distress Orientation/consciousness: patient oriented x3 Eyes: General: appearance normal, both eyes and all related structures Pupils: Equal, round and reactive pupils present Resp: Other: expiratory wheezing Effort & Inspection: normal respiratory effort Cardio: Rate: regular rate Rhythm: regular rhythm GI: Palpation (GI): Soft to palpation Auscultation: normal bowel sounds Skin: General skin exam: no rashes or lesions noted Neuro: General: patient oriented x3 Cranial nerves: Yes Equal, round and reactive pupils present Cognition (Neuro): normal cognition Extrem: General: Yes normal to inspection and Yes no pedal edema Results Labs CBC and Chem 7: 08/29/21 22:35 08/29/21 22:35 Labs: Laboratory Results - last 24 hr 08/29/21 08/29/21 08/29/21 22:35 22:35 22:35 MCV 89.3 MCH 30.6 MCHC 34.2 RDW 12.9 Plt Count 330 MPV 9.5 Immature Gran % (Auto) 0.3 Neut % (Auto) 78.9 H Lymph % (Auto) 9.6 L [place] % (Auto) 8.4 Eos % (Auto) 2.4 Baso % (Auto) 0.4 Lymph # (Auto) 1.3 [place] # (Auto) 1.2 Eos # (Auto) 0.3 Baso # (Auto) 0.1 Abs Immat Gran (auto) 0.04 H Absolute Neuts (auto) 11.0 H Absolute Nucleated RBC 0.000 Nucleated RBC % (auto) 0.0 Anion Gap 16 Estim Creat Clear Calc 103.5 Estimated GFR > 60 Random Glucose 79 Calcium 9.7 COVID-19 (MAURY) Negative COVID-19 Clin Com See Note Assessment and Plan (1) Asthma with acute exacerbation: Qualifiers: Asthma persistence: persistent Asthma severity: moderate Qualified Code(s): J45.41 - Moderate persistent asthma with (acute) exacerbation Status: Acute 21-year-old female with history of asthma presents to the hospital with asthma exacerbation # asthma exacerbation - will start on Solu-Medrol, DuoNeb p.r.n. as well as scheduled - follow improvement in respiratory function DVT prophylaxis: Early ambulation Quality Stroke Does the patient have a stroke diagnosis?: No VTE Prior VTE?: No VTE Risk Level:: Medical - low VTE Device Contraindication: Treatment Not Indicated VTE Drug Contraindication: Treatment Not Indicated
[2021-08-30 03:08] LABS: UPreg QC Valid YES; Urine Pregnancy NEGATIVE (NEGATIVE)
[2021-08-30 06:28] LABS: Basophils Percent Auto 0.2 % (0-2); Hematocrit 35.8 % (37.0-47.0); Hemoglobin 12.2 g/dl (12.0-16.0); Imm Gran Abs Auto 0.06 X10*3/uL (0.00-0.03); Imm Gran Pct Auto 0.5 % (0.0-0.4); Lymphocytes Absolute Auto 0.4 X10*3/uL (1.2-4.9); Lymphocytes Percent Auto 3.3 % (20-40); MANUAL DIFF FLAG SCAN; Mean Corpuscular HGB Conc 34.1 g/dl (31.0-35.0); Mean Corpuscular Hemoglobin 30.3 pg (27.0-33.0); Mean Corpuscular Volume 88.8 fL (80.0-98.0); Mean Platelet Volume 9.7 fL (9.4-12.3); Monocytes Absolute Auto 0.1 X10*3/uL (0.1-1.2); Monocytes Percent Auto 0.8 % (2-11); Neutrophils Absolute Auto 12.1 x10*3/uL (2.0-8.3); Neutrophils Percent Auto 95.2 % (45-73); Platelet Count 321 X10*3/uL (160-400); Red Blood Count 4.03 X10*6/uL (4.20-5.50); Red Cell Distribution Width 12.8 % (11.0-16.0); SCAN SMEAR FLAG 1; White Blood Count 12.7 X10*3/uL (4.8-10.8)
[2021-08-30 06:43] LABS: Anion Gap 16 (12-20); Blood Urea Nitrogen 7 mg/dL (9-16); Calcium 9.8 mg/dL (8.4-10.2); Carbon Dioxide 20 mmol/L (22-29); Chloride 106 mmol/L (96-108); Creatinine Clr Calc Pharmacy 107.1; Estimated Glomerular Filt Rate > 60; Glucose Random 133 mg/dL (60-115); Potassium 3.9 mmol/L (3.3-5.1); Sodium 138 mmol/L (135-145)
[2021-08-30 06:49] LABS: SLIDE REVIEW VERIFIED
[2021-08-30] MEDS: Albuterol/Iprat 2.5/0.5MG 3 ML AMPUL.NEB INHALE ×4 (08:14→20:16)
[2021-08-30] MEDS: Benzonatate 100 MG CAPSULE 200 MG PO ×3 (09:42→20:38)
[2021-08-30] MEDS: methylPREDNISolone Sod Succ 40 MG/ML VIAL IVPUSH ×2 (09:42→20:38)
[2021-08-30] MEDS: 0.9 % Sodium Chloride Flush 3 ML SYRINGE IVFLUSH ×3 (09:42→20:38)
[2021-08-30] MEDS: Acetaminophen 325 MG TABLET 650 MG PO ×2 (09:45→16:08)
--- NOTE | 2021-08-30 09:59 | MHC.CM.PN ---
EMR REVIEWED, PT ADMITTED W/ASTHMA EXAC, PT REPORTS SHE IS HOMELESS AND HAS BEEN LIVING IN HER CAR, PT REPORTS SHE CAN STAY WITH HER MOTHER WHEN D/C'D, PT NOT INTERESTED IN LONG TERM PLACEMENT, PT INDEPENDENT W/ALL CARE, HAS A NEBULIZER AND ASTHMA INHALERS, NO HOME SERVICES, PCP VERIFIED BELLA FLORES AND PT PROVIDED W/EDUCATION ON HCP HOWEVER DECLINES AT THIS TIME. D/C PLAN: PT WILL STAY W/HER MOTHER AND CAR IN LOT AND PT WILL DRIVE SELF.
[2021-08-31] VITALS (7 sets, daily range): BP systolic 112–127; BP diastolic 55–79; PULSE 94–111; RESP 18; TEMP 36.3–36.9; O2SAT 92–98
[2021-08-31] MEDS: Albuterol/Iprat 2.5/0.5MG 3 ML AMPUL.NEB INHALE ×3 (00:25→11:29)
[2021-08-31] MEDS: 0.9 % Sodium Chloride Flush 3 ML SYRINGE IVFLUSH (10:19)
[2021-08-31] MEDS: methylPREDNISolone Sod Succ 40 MG/ML VIAL IVPUSH (10:19)
[2021-08-31] MEDS: Benzonatate 100 MG CAPSULE 200 MG PO (10:19)
--- NOTE | 2021-08-31 10:29 | PM.DS ---
DS: Providers Provider Date of Service: 08/31/21 Date of admission: 08/30/21 00:04 Primary care physician: Jackie Garner MD DS: Diagnosis Discharge Diagnosis (1) Asthma with acute exacerbation: Status: Acute DS: Summary Hospital Course Hospital Course: Admission note HPI ?21-year-old female with history of asthma presents to the hospital with complaints of shortness of breath wheezing cough for the past 2 days.? Patient reports that last night was very severe where she could not sleeve, she tried her DuoNeb, albuterol inhalers with no success at relieving her symptoms are for decided to come to the hospital.? Patient denies any fever but has chills, cough is dry and nonproductive, has no headache no change in vision, no dizziness, no lightheadedness, no chest pain, no abdominal pain nausea or vomiting, no diarrhea constipation, no urinary symptoms and no lower extremity edema On arrival to the ED patient hemodynamically stable with elevated heart rate of 116 that is now? normalized Labs are unremarkable ?patient given multiple breathing treatments as well as high-dose steroids with no significant improvement of her symptoms therefore she will be admitted for further management of her asthma exacerbation Hospital course The patient was admitted to the hospital for treatment of asthma exacerbation. She received IV steroids, bronchodilator nebulizers with good response overnight as she felt much better the next morning and was able to ambulate on room with decreased feeling or dyspnea. Patient remains on room during the hospital stay and done require any oxygen supplement. Plan to discharge home on prednisone and albuterol inhaler as needed. Time Spent with Patient Time attestation: Total time spent providing and/or coordinating discharge services: Discharge coordination time: Greater than 30 minutes Quality: Stroke Does the patient have a stroke diagnosis?: No Physical Exam Vital Signs: Vital Signs: Last Vital Signs Temp 98.1 F 08/31/21 08:00 Pulse 110 H 08/31/21 08:29 Resp 18 08/31/21 08:00 BP 123/71 08/31/21 08:00 Pulse Ox 98 08/31/21 08:00 BMI result Body Mass Index 28.0 Const: Other: Constitutional : Alert, oriented, not in distress Neck : Normal inspection, Supple Cardiovascular : RRR, S1 S2, no lower extremity edema Respiratory : Good bilateral air entry, no crackles, fine scattered wheezes Gastrointestinal: soft, lax, Normal bowel sounds, Non tender Skin : Warm, Dry Neurological : Alert & oriented x3, No focal deficit Discharge Plan Discharge Patient Disposition: Home, Self-Care Discharge Diagnosis: Asthma exacerbation Referrals: Jackie Garner MD [Primary Care Provider] - 1 Week Discharge Medications: New benzonatate 100 mg Capsule 200 mg PO TID 5 Days Qty: 30 RF: 0 prednisone 20 mg tablet 40 mg PO DAILY Qty: 8 RF: 0 albuterol sulfate 90 mcg/actuation HFA aerosol inhaler 2 puff inhalation Q6H PRN (Reason: shortness of breath or wheezing) Qty: 8.5 RF: 0 Discharge Orders: Discharge Order (Routine); Ordered 08/31/21 Ordered By: Lizy Ashley Diet: advance to usual diet Activity on Discharge: As tolerated Stand Alone Forms: Patient Portal Discharge page Care Plan Goals: Read below Health Concerns: Read below Plan of Treatment: Read below Assessment: You were admitted to the hospital for treatment of asthma exacerbation. Treated with IV steroids and bronchodilator nebulizers with good response. Continue prednisone for 4 more days Use albuterol inhaler as needed
--- NOTE | 2021-08-31 12:21 | MHC.CM.PN ---
PT DISCHARGING TO MOTHERS HOME, PT'S CAR IN [facility] [place] LOT AND WILL TRANSPORT SELF.
== END 2021-08-31 13:24 | disposition home or self-care (01) | DRG 141 ==
LOC: HO.ED 08-30 00:01 → HO.S3 08-30 02:04
PROVIDERS: Admitting Provider Internal Medicine; Emergency Provider Emergency Medicine; PCP Specialist; Visit Provider Student in an Organized Health Care Education/Training Program
DX: J45.41 Moderate persistent asthma with (acute) exacerbation (principal); Z20.822 Contact with and (suspected) exposure to COVID-19
CPT/HCPCS: 36415; 80048; 81025; 85025; 87635; 93005; 94640; 94644; 96365; 96366; 96375; 99218; 99285; 99291; J2920; J2930; J3475

== ENCOUNTER 2022-02-05 17:08 | Emergency (ER) | payer OTHER, SELFPAY ==
[2022-02-05 17:56] VITALS: BP 126/87; PULSE 76; RESP 18; TEMP 36.2; O2SAT 100; BMI 29.2
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
== END 2022-02-05 21:00 | disposition home or self-care (01) ==
PROVIDERS: Emergency Provider Internal Medicine; PCP Specialist
DX: Z04.1 Encounter for examination and observation following transport accident (principal); Z79.899 Other long term (current) drug therapy
CPT/HCPCS: 99282; 99283

== ENCOUNTER 2022-04-28 12:49 | Emergency (ER) | payer OTHER, SELFPAY ==
--- NOTE | ~2022-04-28 | XR_ITS ---
EXAMINATION: XR CHEST CLINICAL INFORMATION: Shortness of breath. Fever. Cough. COMPARISON: Chest done on 08/29/2021. TECHNIQUE: Frontal view of the chest was obtained. FINDINGS: No significant abnormality is noted involving the heart, lungs, mediastinum, bony thorax or soft tissues. XR/XR chest 1V IMPRESSION: Unremarkable examination.
[2022-04-28 13:25] VITALS: BP 158/70; PULSE 80; RESP 18; TEMP 37.1; O2SAT 97; BMI 28.3
--- NOTE | 2022-04-28 14:01 | ED.GENADULT ---
HPI - General Adult General Chief complaint: Upper Respiratory Symptoms Stated complaint: covid symptoms Time Seen by Provider: 04/28/22 14:01 Source: patient Mode of arrival: ambulatory Limitations: no limitations History of Present Illness HPI narrative: Patient is a 22 year old female presenting to the emergency department today with cough and body aches. Patient states that since yesterday, she began feeling unwell. Patient denies any dizziness, lightheadedness, abdominal pain, nausea, vomiting, blurry vision, double vision, loss of vision, chest pain, difficulty breathing, shortness of breath, back pain, night sweats, pain with urination, increased urinary frequency, increased urinary urgency, blood in her urine or stool, syncope or a near syncopal episode, recent trauma or falls, bowel incontinence, bladder incontinence, bowel retention, bladder retention, or any other complaints at this time. Onset (ago): day(s) (1) Severity: mild Severity scale (1-10): 2 Quality: dull Relieving factors: none Exacerbating factors: none Associated symptoms: fever/chills Treatments prior to arrival: none Related Data Previous Rx's Medication Instructions Recorded albuterol sulfate 90 mcg/actuation 2 puff inhalation Q6H PRN 08/31/21 aerosol inhaler shortness of breath or wheezing #8.5 grams benzonatate 100 mg capsule 200 mg PO TID 5 days #30 caps 08/31/21 prednisone 20 mg tablet 40 mg PO DAILY #8 tabs 08/31/21 Allergies Allergy/AdvReac Type Severity Reaction Status Date / Time cucumber [CUCUMBER] Allergy Unknown RASH Verified 04/28/22 13:25 peanut [PEANUT] Allergy Unknown RASH Verified 04/28/22 13:25 Review of Systems Constitutional: Constitutional: Reports no additional constitutional complaints, Reports chills, Reports fever(s) and Denies night sweats Eyes: Eyes: Reports no additional eye complaints, Denies blurry vision, Denies change in vision, Denies diplopia, Denies eye discharge, Denies loss of vision and Denies eye pain ENT: Denies dizziness Cardiovascular: Cardiovascular: Reports no additional cardiovascular complaints, Denies chest pain, Denies lightheadedness, Denies Loss of Consciousness and Denies dyspnea Respiratory: Respiratory: Reports no additional respiratory complaints, Reports cough and Denies dyspnea Gastrointestinal: Gastrointestinal: Reports no additional gastrointestinal complaints, Denies abdominal pain, Denies melena, Denies hematochezia, Denies change in bowel habits and Denies change in stool character Genitourinary: Genitourinary: Denies hematuria, Denies urinary frequency, Denies dysuria, Denies urinary incontinence, Denies urinary hesitancy and Denies urinary urgency Musculoskeletal: Musculoskeletal: Reports no additional musculoskeletal complaints, Denies numbness and Denies tingling Neurologic: Denies dizziness, Denies loss of vision, Denies numbness and Denies tingling Psychiatric: Psychiatric: Reports no additional psychiatric complaints Endocrine: Endocrine: Reports no additional endocrine complaints Hematologic/Lymphatic: Hematologic/Lymphatic: Reports no additional hematologic/lymphatic complaints Allergic/Immunologic: Allergic/Immunologic: Reports no additional allergic/immunologic complaints [facility] Past Medical History Attestation statement: The following information was validated with the patient. Source: old records reviewed Medical History Asthma Surgical History No pertinent past surgical history Family History Family History Other No pertinent family history Social History Social History Household Members: None Housing: Homeless Do you presently have visiting nurse or other home services: No Alcohol intake: never Patient Tobacco Use Status: Never used Tobacco Second Hand Smoke Exposure: No Substance Use Type: Marijuana Advance Directives: No Advance Directives Information Provided: No service: No Current occupational status: unemployed Physical Exam ED Vital Signs: Vital Signs - 24 hr 04/28/22 13:25 Temperature 98.7 F Pulse Rate 80 Respiratory Rate 18 Blood Pressure 158/70 H Pulse Oximetry 97 Oxygen Delivery Method Room Air BMI result Body Mass Index 28.3 Const General: cooperative, no acute distress, alert and awake Nutritional Appearance: well nourished Orientation/consciousness: patient oriented x3 Limitations: no limitations HENMT Head: Yes normal to inspection and Yes atraumatic Ears: hearing grossly normal bilaterally and external ears normal General nose exam: Normal external nose present, no nasal discharge noted and no epistaxis Face and sinus: Yes normal facial exam, No abrasion and No laceration Mouth: Normal oral and palatal mucosa present, no drooling and no muffled voice Eyes General: appearance normal, both eyes and all related structures Periorbital: periorbital findings normal Eyelids: Yes eyelids normal Conjunctivae: conjunctivae normal Pupils: Equal, round and reactive pupils present EOM: EOMs intact bilaterally Neck Neck: Yes normal visual inspection, Yes full ROM and Yes no lymphadenopathy Chest Chest palpation & inspection: normal inspection of the chest Resp Effort & Inspection: normal respiratory effort and able to speak in complete sentences Auscultation: clear to auscultation bilaterally Cardio Rate: regular rate Rhythm: regular rhythm GI Inspection: Yes normal to inspection Neuro General: patient oriented x3 and moves all extremities Cranial nerves: Yes Equal, round and reactive pupils present Cognition (Neuro): normal cognition Motor exam (neuro): 5/5 motor strength present throughout Sensory Exam: Normal double simultaneous stimulation for sensation Coordination: [id number] test normal Extrem General: Yes normal to inspection, Yes full ROM and Yes capillary refill normal Psych Appearance: grossly normal Mental Status: mental status grossly normal Affect: normal affect Attitude: cooperative Thought process: Normal thought process present Thought content: Normal thought content present Insight: Good insight present (Psych) Medical Decision Making MDM Narrative Medical decision making narrative: Patient is a 22 year old female presenting to the emergency department today with a fever and cough. Patient's physical exam was unremarkable. Patient's COVID-19 test was positive. Patient's chest x-ray showed no acute process. I explained my physical exam findings as well as all test results to the patient. I answered all questions asked by the patient. I stressed the importance of the patient taking her medication as prescribed. I stressed the importance of the patient following up with her primary care provider. I stressed the importance of the patient returning to the emergency department immediately if her symptoms were to worsen or if she were to develop any dizziness, shortness of breath, difficulty breathing, chest pain, blurry vision, loss of vision, nausea, vomiting, abdominal pain, fever, chills, back pain, or any other complaints. Patient verbalized agreement and understanding with this treatment plan and discharge. Differential Diagnosis Differential Diagnosis: COVID-19 Medical Records Medical records reviewed: Yes I reviewed the patient's medical records. Lab Data Lab results reviewed: Yes I reviewed the patient's lab results. Labs: Lab Results 04/28/22 Range/Units 13:42 COVID-19 (AMURY) Positive A (Negative) COVID-19 Clin Com See Note Imaging Data Chest x-ray: Attestation: I personally reviewed and interpreted this imaging study as follows: My impression: No acute process. Radiologist's impression: EXAMINATION: XR CHEST CLINICAL INFORMATION: Shortness of breath. Fever. Cough. COMPARISON: Chest done on 08/29/2021. TECHNIQUE: Frontal view of the chest was obtained. FINDINGS: No significant abnormality is noted involving the heart, lungs, mediastinum, bony thorax or soft tissues. XR/XR chest 1V IMPRESSION: Unremarkable examination. Dictated By: Lily Fraire MD Signed By: Electronically signed by Lily Fraire MD 04/28/22 1459 Discharge Plan Discharge Clinical Impression: COVID-19 Patient Disposition: Home, Self-Care Instructions: COVID-19 (Coronavirus Disease 2019) (ED) Additional Instructions: Follow up with your primary care provider. Return to the emergency department immediately if your symptoms worsen or if you develop any dizziness, shortness of breath, difficulty breathing, chest pain, blurry vision, loss of vision, nausea, vomiting, abdominal pain, fever, chills, back pain, or any other complaints. Prescriptions: No Action benzonatate 100 mg Capsule 200 mg PO TID 5 Days Qty: 30 0RF prednisone 20 mg tablet 40 mg PO DAILY Qty: 8 0RF albuterol sulfate 90 mcg/actuation HFA aerosol inhaler 2 puff inhalation Q6H PRN (Reason: shortness of breath or wheezing) Qty: 8.5 0RF Referrals: [facility] Family Medicine [Provider Group] (Call to establish and follow up with a primary care provider. If you already have a primary care provider, please call and follow up with them. ) [facility] [Provider Group] (Call to establish and follow up with a primary care provider. If you already have a primary care provider, please call and follow up with them. ) [facility] [Provider Group] (Call to establish and follow up with a primary care provider. If you already have a primary care provider, please call and follow up with them. ) Stand Alone Forms: Work/School Release Interventions: ED Discharge Assessment Last Done: 04/28/22 14:19 Discharge Date/Time: 04/28/22 14:22 Print Language: Ecuadorean
[2022-04-28 14:05] LABS: COVID-19 Test Positive (Negative); IDNOW Serial# 16C4AD1C
== END 2022-04-28 14:22 | disposition home or self-care (01) ==
PROVIDERS: Emergency Provider Student in an Organized Health Care Education/Training Program
DX: U07.1 COVID-19 (principal); R50.9 Fever, unspecified; R06.02 Shortness of breath; Z79.899 Other long term (current) drug therapy
CPT/HCPCS: 71045; 87635; 99282; 99283

== ENCOUNTER 2022-06-29 13:10 | Emergency (ER) | payer OTHER, SELFPAY ==
--- NOTE | ~2022-06-29 | XR_ITS ---
EXAMINATION: XR CHEST CLINICAL INFORMATION: Productive cough. COMPARISON: 04/28/2022 chest radiograph. TECHNIQUE: Frontal view of the chest was obtained. FINDINGS: No significant abnormality is noted involving the heart, lungs, mediastinum, bony thorax or soft tissues. XR/XR chest 1V IMPRESSION: No acute cardiopulmonary process.
[2022-06-29 13:37] VITALS: BP 120/64; PULSE 95; RESP 18; TEMP 37.2; O2SAT 98; BMI 29.2
[2022-06-29 13:54] LABS: MANUAL DIFF FLAG NO
[2022-06-29 13:56] LABS: Basophils Percent Auto 0.2 % (0-2); Eosinophils Absolute Auto 0.7 X10*3/uL (0.0-0.4); Eosinophils Percent Auto 5.3 % (0-4); Hematocrit 36.1 % (37.0-47.0); Hemoglobin 12.2 g/dl (12.0-16.0); Imm Gran Abs Auto 0.03 X10*3/uL (0.00-0.03); Imm Gran Pct Auto 0.2 % (0.0-0.4); Lymphocytes Absolute Auto 1.3 X10*3/uL (1.2-4.9); Lymphocytes Percent Auto 10.7 % (20-40); Mean Corpuscular HGB Conc 33.8 g/dl (31.0-35.0); Mean Corpuscular Hemoglobin 29.6 pg (27.0-33.0); Mean Corpuscular Volume 87.6 fL (80.0-98.0); Mean Platelet Volume 9.3 fL (9.4-12.3); Monocytes Absolute Auto 0.8 X10*3/uL (0.1-1.2); Monocytes Percent Auto 6.6 % (2-11); Neutrophils Absolute Auto 9.4 x10*3/uL (2.0-8.3); Platelet Count 357 X10*3/uL (160-400); Red Blood Count 4.12 X10*6/uL (4.20-5.50); Red Cell Distribution Width 13.2 % (11.0-16.0); White Blood Count 12.2 X10*3/uL (4.8-10.8)
[2022-06-29 14:14] LABS: IDNOW Serial# 9DB6401D; Influenza A Negative (Negative); Influenza B2 Negative (Negative)
[2022-06-29 14:15] LABS: COVID-19 Test Negative (Negative); IDNOW Serial# 16C4AD1C
[2022-06-29 14:19] LABS: Alanine Aminotransferase 13 U/L (0-31); Albumin Level 4.5 g/dL (3.5-5.0); Alkaline Phosphatase 65 U/L (39-117); Anion Gap 16 (12-20); Aspartate Amino Transferase 20 U/L (5-31); Bilirubin Total 0.6 mg/dL (0.0-1.0); Blood Urea Nitrogen 7 mg/dL (9-16); Calcium 9.1 mg/dL (8.4-10.2); Carbon Dioxide 22 mmol/L (22-29); Chloride 106 mmol/L (96-108); Creatinine Clr Calc Pharmacy 120.4; Estimated Glomerular Filt Rate > 60; Glucose Random 81 mg/dL (60-115); Potassium 3.4 mmol/L (3.3-5.1); Sodium 141 mmol/L (135-145); Total Protein 7.6 g/dL (6.5-8.0)
--- NOTE | 2022-06-29 15:59 | ED_ITS ---
HPI - Asthma General Chief Complaint: Dyspnea Stated Complaint: asthma Time Seen by Provider: 06/29/22 15:52 Source: patient Mode of arrival: ambulatory Limitations: no limitations History of Present Illness HPI Narrative: 22-year-old female with history of mild intermittent asthma presents to the ER for evaluation of shortness of breath, productive cough, body aches and chest tightness for the last 3 days. She reports her symptoms have been worsening and last night her cough is keeping her up and she was unable to sleep. She reports she recently traveled to [place] and when she got home she was having increased asthma symptoms. She used her nebulizer with some temporary relief. She reports bringing up yellow phlegm. She also has increased nasal congestion. She denies any fevers but reports chills. No other sick contacts. She has seasonal allergies and is on Zyrtec. MD complaint: shortness of breath and other (Productive cough) Onset (ago): day(s) (3) Severity: moderate Context: recent URI Associated symptoms: productive cough Treatments Prior to Arrival: inhaled bronchodilator Related Data Current Asthma Therapy: inhaled bronchodilator Previous Rx's Medication Instructions Recorded albuterol sulfate 90 mcg/actuation 2 puff inhalation Q6H PRN 08/31/21 aerosol inhaler shortness of breath or wheezing #8.5 grams benzonatate 100 mg capsule 200 mg PO TID 5 days #30 caps 08/31/21 prednisone 20 mg tablet 40 mg PO DAILY #8 tabs 08/31/21 azithromycin 250 mg tablet See Rx Instructions PO .COMPLEX #6 06/29/22 (Zithromax Z-Walter) tabs fluticasone propionate 50 1 spray intranasal BID #16 grams 06/29/22 mcg/actuation nasal spray,suspension (24 Hour Allergy Relief) hydrocodone-homatropine 5 mg-1.5 5 ml PO Q6H PRN cough #60 mL 06/29/22 mg/5 mL (5 mL) oral syrup (Hycodan) prednisone 20 mg tablet 40 mg PO DAILY #10 tabs 06/29/22 Allergies Allergy/AdvReac Type Severity Reaction Status Date / Time cucumber [CUCUMBER] Allergy Unknown RASH Verified 04/28/22 13:25 peanut [PEANUT] Allergy Unknown RASH Verified 04/28/22 13:25 Review of Systems Review of Systems: Constitutional: No Fever, + Chills ENT/Mouth: No sore throat, No Rhinorrhea, No Swallowing Difficulty Eyes: No Eye Pain, No Swelling, No Redness Cardiovascular: No Chest Pain, No SOB, No Orthopnea, No Edema Respiratory: + Cough, + Sputum, + Wheezing, No dyspnea Gastrointestinal: + Nausea, + Vomiting (post-tussive x1), No Diarrhea, No abdominal Pain Genitourinary: No Dysuria, No Urinary Frequency, No Hematuria Musculoskeletal: No joint pain, + Myalgias Skin: No Skin Lesions, No rash Neuro: No Weakness, No Numbness, No Dizziness, No Headache Psych: No Anxiety/Panic, No Depression Heme/Lymph: No Bruising, No Lymphadenopathy PMFSH Past Medical History Medical History Asthma Surgical History No pertinent past surgical history Family History Family History Other No pertinent family history Social History Social History Household Members: None Housing: Homeless Do you presently have visiting nurse or other home services: No Alcohol intake: never Patient Tobacco Use Status: Never used Tobacco Second Hand Smoke Exposure: No Substance Use Type: Marijuana Advance Directives: No Advance Directives Information Provided: No service: No Current occupational status: unemployed Physical Exam Vital Signs: Vital Signs: Last Vital Signs Temp 98.9 F 06/29/22 13:37 Pulse 110 H 06/29/22 16:24 Resp 20 06/29/22 16:24 BP 120/64 06/29/22 13:37 Pulse Ox 98 06/29/22 13:37 O2 Del Method 06/29/22 13:37 BMI result Body Mass Index 29.2 Appearance: Alert. Oriented X3. No acute distress. Eyes: Pupils equal, round and reactive to light. ENT: Pharynx normal. Nasal congestion and clear nasal discharge. Neck: Normal inspection. Neck supple. CVS: Normal heart rate and rhythm. Pulses normal. Respiratory: No respiratory distress. Dry harsh cough noted. Breath sounds coarse throughout with mild expiratory wheezes in the bilateral apices. Abdomen: Soft and nontender. +BS x4 Skin: Skin warm and dry. Normal skin color. Normal skin turgor. No rashes. Extremities: No lower extremity edema. Neuro: Oriented X 3. Grossly normal, nonfocal. Course Course Course Narrative: 22-year-old female with a history of asthma presents to the ER for evaluation of 3 days of worsening productive cough, nasal and chest congestion, body aches and wheezing. She reports history of similar episodes with seasonal changes. On arrival to the ER she is oxygenating well, 98% on room air. She has some mild wheezing in her apices only. She is speaking in full sentences. Lab workup is significant for a white blood cell count of 12.2. No infiltrate on x- ray. She is negative for COVID and flu. Will plan to give her a albuterol nebulizer, oral steroids, oral antitussive and reassess. Anticipate discharge home with treatment for bronchitis and asthma. Reevaluation(s) Reevaluation #1: Patient feeling after nebulizer. She is stable for discharge home for treatment for acute bronchitis. MDM - Asthma Lab Data Result diagrams: 06/29/22 13:49 06/29/22 13:49 Labs: Lab Results 06/29/22 06/29/22 06/29/22 Range/Units 13:49 13:49 13:49 WBC 12.2 H (4.8-10.8) X10*3/uL RBC 4.12 L (4.20-5.50) X10*6/uL Hgb 12.2 (12.0-16.0) g/dl Hct 36.1 L (37.0-47.0) % MCV 87.6 (80.0-98.0) fL MCH 29.6 (27.0-33.0) pg MCHC 33.8 (31.0-35.0) g/dl RDW 13.2 (11.0-16.0) % Plt Count 357 (160-400) X10*3/uL MPV 9.3 L (9.4-12.3) fL Immature Gran % (Auto) 0.2 (0.0-0.4) % Neut % (Auto) 77.0 H (45-73) % Lymph % (Auto) 10.7 L (20-40) % [place] % (Auto) 6.6 (2-11) % Eos % (Auto) 5.3 H (0-4) % Baso % (Auto) 0.2 (0-2) % Lymph # (Auto) 1.3 (1.2-4.9) X10*3/uL [place] # (Auto) 0.8 (0.1-1.2) X10*3/uL Eos # (Auto) 0.7 H (0.0-0.4) X10*3/uL Baso # (Auto) 0.0 (0.0-0.2) X10*3/uL Abs Immat Gran (auto) 0.03 (0.00-0.03) X10*3/uL Absolute Neuts (auto) 9.4 H (2.0-8.3) x10*3/uL Absolute Nucleated RBC 0.000 (0.0-0.012) X10*3/uL Nucleated RBC % (auto) 0.0 (0.0-0.2) /100WBC Sodium 141 (135-145) mmol/L Potassium 3.4 (3.3-5.1) mmol/L Chloride 106 (96-108) mmol/L Carbon Dioxide 22 (22-29) mmol/L Anion Gap 16 (12-20) BUN 7 L (9-16) mg/dL Creatinine 0.71 (0.5-1.4) mg/dL Estim Creat Clear Calc 120.4 Estimated GFR > 60 Random Glucose 81 (60-115) mg/dL Calcium 9.1 D (8.4-10.2) mg/dL Total Bilirubin 0.6 (0.0-1.0) mg/dL AST 20 (5-31) U/L ALT 13 (0-31) U/L Alkaline Phosphatase 65 (39-117) U/L Total Protein 7.6 (6.5-8.0) g/dL Albumin 4.5 (3.5-5.0) g/dL COVID-19 (MAURY) (Negative) COVID-19 Clin Com Influenza Type A (PATRICK) Negative (Negative) Influenza Type B (PATRICK) Negative (Negative) Influenza A & B Note See Note 06/29/22 Range/Units 13:49 WBC (4.8-10.8) X10*3/uL RBC (4.20-5.50) X10*6/uL Hgb (12.0-16.0) g/dl Hct (37.0-47.0) % MCV (80.0-98.0) fL MCH (27.0-33.0) pg MCHC (31.0-35.0) g/dl RDW (11.0-16.0) % Plt Count (160-400) X10*3/uL MPV (9.4-12.3) fL Immature Gran % (Auto) (0.0-0.4) % Neut % (Auto) (45-73) % Lymph % (Auto) (20-40) % [place] % (Auto) (2-11) % Eos % (Auto) (0-4) % Baso % (Auto) (0-2) % Lymph # (Auto) (1.2-4.9) X10*3/uL [place] # (Auto) (0.1-1.2) X10*3/uL Eos # (Auto) (0.0-0.4) X10*3/uL Baso # (Auto) (0.0-0.2) X10*3/uL Abs Immat Gran (auto) (0.00-0.03) X10*3/uL Absolute Neuts (auto) (2.0-8.3) x10*3/uL Absolute Nucleated RBC (0.0-0.012) X10*3/uL Nucleated RBC % (auto) (0.0-0.2) /100WBC Sodium (135-145) mmol/L Potassium (3.3-5.1) mmol/L Chloride (96-108) mmol/L Carbon Dioxide (22-29) mmol/L Anion Gap (12-20) BUN (9-16) mg/dL Creatinine (0.5-1.4) mg/dL Estim Creat Clear Calc Estimated GFR Random Glucose (60-115) mg/dL Calcium (8.4-10.2) mg/dL Total Bilirubin (0.0-1.0) mg/dL AST (5-31) U/L ALT (0-31) U/L Alkaline Phosphatase (39-117) U/L Total Protein (6.5-8.0) g/dL Albumin (3.5-5.0) g/dL COVID-19 (MAURY) Negative (Negative) COVID-19 Clin Com See Note Influenza Type A (PATRICK) (Negative) Influenza Type B (PATRICK) (Negative) Influenza A & B Note Discharge Plan Discharge Clinical Impression: Asthma exacerbation, Bronchitis Patient Disposition: Home, Self-Care Instructions: Asthma (ED), Acute Bronchitis (ED) Additional Instructions: Her x-ray did not show any evidence of pneumonia. You are negative for COVID and flu. Recommend taking all the prescribed medications as directed. Recommend using albuterol nebulizer treatments every 4 hours over the weekend, and then as needed for shortness of breath and wheezing. Take the prescribed cough medicine as needed. Do not drive after you take this as it can make you drowsy. Start your prednisone tomorrow, you were given the 1st dose in the ER today. Follow up with your PCP. If you develop new or worsening symptoms call 911 or come back to the ER for further evaluation. Prescriptions: New prednisone 20 mg tablet 40 mg PO DAILY Qty: 10 0RF fluticasone propionate [24 Hour Allergy Relief] 50 mcg/actuation spray,suspension 1 spray intranasal BID Qty: 16 0RF Rx Instructions: administer into each nostril hydrocodone-homatropine [Hycodan] 5-1.5 mg/5 mL (5 mL) syrup 5 ml PO Q6H PRN (Reason: cough) Qty: 60 0RF Rx Instructions: Partial Fill upon patient request. azithromycin [Zithromax Z-Walter] 250 mg tablet See Rx Instructions .ROUTE .COMPLEX Qty: 6 0RF Rx Instructions: take 500 mg today (day 1), then 250 mg for 4 days (days 2-5) No Action benzonatate 100 mg Capsule 200 mg PO TID 5 Days Qty: 30 0RF prednisone 20 mg tablet 40 mg PO DAILY Qty: 8 0RF albuterol sulfate 90 mcg/actuation HFA aerosol inhaler 2 puff inhalation Q6H PRN (Reason: shortness of breath or wheezing) Qty: 8.5 0RF Stand Alone Forms: Work/School Release
[2022-06-29] MEDS: predniSONE 5 MG TABLET 40 MG PO (16:15)
[2022-06-29] MEDS: guaiFENesin DM 600/30 1 TAB TAB.ER.12H 2 TAB PO (16:15)
[2022-06-29] MEDS: Albuterol Sulfate 2.5 MG, Albuterol Sulfate (0.083%) 2.5 MG 5 MG INHALE (16:21)
[2022-06-29 16:24] VITALS: PULSE 110; RESP 20; O2SAT 98
== END 2022-06-29 16:58 | disposition home or self-care (01) ==
PROVIDERS: Emergency Provider Emergency Medicine
DX: J45.901 Unspecified asthma with (acute) exacerbation (principal); Z20.822 Contact with and (suspected) exposure to COVID-19; F12.90 Cannabis use, unspecified, uncomplicated
CPT/HCPCS: 71045; 80053; 85025; 87502; 87635; 94640; 99283

== ENCOUNTER 2022-09-09 20:24 | Emergency (ER) | payer OTHER, SELFPAY ==
--- NOTE | 2022-09-09 20:26 | ED_ITS ---
HPI - Abdominal Pain General Chief Complaint: Nausea/Vomiting/Diarrhea <Sada Pearson NP - Last Filed: 09/09/22 20:30> Stated Complaint: Vomiting Blood <Sada Pearson NP - Last Filed: 09/09/22 20:30> Time Seen by Provider: 09/09/22 22:09 <Sada Pearson NP - Last Filed: 09/09/22 20:30> Source: patient <Venecia Garcia MD - Last Filed: 09/09/22 23:32> Mode of arrival: ambulatory <Venecia Garcia MD - Last Filed: 09/09/22 23:32> Limitations: no limitations <Venecia Garcia MD - Last Filed: 09/09/22 23:32> History of Present Illness HPI narrative: Patient comes to the emergency room complaining of 2 weeks of intermittent headache. Patient states that she has not been diagnosed with migraine headaches for mode. Patient has been trying to control with Tylenol and ibuprofen. Today, patient was very nauseous, vomited, place she is up blood in the vomit. This has happened only x1. Denies black stool or rectal bleeding. Patient has history of gastritis or peptic ulcers <Venecia Garcia MD - Last Filed: 09/09/22 23:32> Related Data Home Medications: Previous Rx's Medication Instructions Recorded albuterol sulfate 90 mcg/actuation 2 puff inhalation Q6H PRN 08/31/21 aerosol inhaler shortness of breath or wheezing #8.5 grams benzonatate 100 mg capsule 200 mg PO TID 5 days #30 caps 08/31/21 prednisone 20 mg tablet 40 mg PO DAILY #8 tabs 08/31/21 azithromycin 250 mg tablet See Rx Instructions PO .COMPLEX #6 06/29/22 (Zithromax Z-Walter) tabs fluticasone propionate 50 1 spray intranasal BID #16 grams 06/29/22 mcg/actuation nasal spray,suspension (24 Hour Allergy Relief) hydrocodone-homatropine 5 mg-1.5 5 ml PO Q6H PRN cough #60 mL 06/29/22 mg/5 mL (5 mL) oral syrup (Hycodan) prednisone 20 mg tablet 40 mg PO DAILY #10 tabs 06/29/22 acetaminophen 500 mg tablet 500 mg PO Q6H PRN pain #20 tabs 09/09/22 sumatriptan succinate 50 mg tablet See Rx Instructions PO .COMPLEX #7 09/09/22 tabs <Sada Pearson NP - Last Filed: 09/09/22 20:30> Allergies/Adverse Reactions: Allergies Allergy/AdvReac Type Severity Reaction Status Date / Time cucumber [CUCUMBER] Allergy Unknown RASH Verified 04/28/22 13:25 peanut [PEANUT] Allergy Unknown RASH Verified 04/28/22 13:25 <Sada Pearson NP - Last Filed: 09/09/22 20:30> Review of Systems Review of Systems Constitutional : No Weight loss, No Fever, No Chills, No Night Sweats, No Fatigue, No Malaise ENT/Mouth : No Hearing loss, No Ear Pain, No Nasal Congestion, No Sinus Pain, No Hoarseness, No sore throat, No Rhinorrhea, No Swallowing Difficulty Eyes: No Eye Pain, No Swelling, No Redness, No Foreign Body, No Discharge, No Vision Changes Cardiovascular : No Chest Pain, No SOB, No Dyspnea on Exertion, No Orthopnea, No Edema, No Palpitations Respiratory : No Cough, No Sputum, No Wheezing, No Smoke Exposure, No Dyspnea Gastrointestinal : Complaining of nausea vomiting, No Diarrhea, No Constipation, No abdominal Pain, No Hematochezia, No Melena Genitourinary : no irregular bleeding, No Dysuria, No Urinary Frequency, No Hematuria, No Urinary Incontinence, No Urgency, No Flank Pain, No Urinary Flow Changes, No Hesitancy Musculoskeletal : No joint pain, No Myalgias, No Joint Swelling Skin : No Skin Lesions, No rash Neuro : No Weakness, No Numbness, No Paresthesias, No Loss of Consciousness, No Dizziness, complaining of intermittent headaches Psych : No Anxiety/Panic, No Depression, No SI/HI/AH/VH, No Social Issues, Heme/Lymph: No Bruising, No Bleeding,No Lymphadenopathy Endocrine : No Polyuria, No Polydipsia, No Temperature Intolerance <Venecia Garcia MD - Last Filed: 09/09/22 23:32> [facility] Past Medical History Medical History: Medical History Asthma <Sada Pearson NP - Last Filed: 09/09/22 20:30> Surgical History: Surgical History No pertinent past surgical history <Sada Pearson NP - Last Filed: 09/09/22 20:30> Family History Family History: Family History Other No pertinent family history <Sada Pearson NP - Last Filed: 09/09/22 20:30> Social History Social History: Social History Household Members: None Housing: Homeless Do you presently have visiting nurse or other home services: No Alcohol intake: never Patient Tobacco Use Status: Never used Tobacco Second Hand Smoke Exposure: No Substance Use Type: Marijuana Advance Directives: No Advance Directives Information Provided: No service: No Current occupational status: unemployed <Sada Pearson NP - Last Filed: 09/09/22 20:30> Physical Exam ED Vital Signs: Vital Signs - 24 hr 09/09/22 20:27 09/09/22 22:30 09/09/22 23:14 Temperature 98.6 F 98.7 F 98.3 F Pulse Rate 85 63 89 Respiratory Rate 20 18 18 Blood Pressure 185/80 H 136/77 102/67 Pulse Oximetry 100 100 98 Oxygen Delivery Method Room Air Room Air Room Air BMI result Body Mass Index 29.2 <Sada Pearson NP - Last Filed: 09/09/22 20:30> Vital Signs - 24 hr 09/09/22 20:27 09/09/22 22:30 09/09/22 23:14 Temperature 98.6 F 98.7 F 98.3 F Pulse Rate 85 63 89 Respiratory Rate 20 18 18 Blood Pressure 185/80 H 136/77 102/67 Pulse Oximetry 100 100 98 Oxygen Delivery Method Room Air Room Air Room Air BMI result Body Mass Index 29.2 <Venecia Garcia MD - Last Filed: 09/09/22 23:32> Const Other: Appearance: Alert. Oriented X3. Seems uncomfortable Eyes: Pupils equal, round and reactive to light. Seems to have a phobia ENT: Pharynx normal. Neck: Normal inspection. Neck supple. No lymph nodes noted. No crepitus CVS: Normal heart rate and rhythm. Pulses normal. Normal S1 and S2 Respiratory: No respiratory distress. Breath sounds normal. No Wheezing. No rales Abdomen: Soft and nontender. No rigidity. No distention. Skin: Skin warm and dry. Normal skin color. Normal skin turgor. Extremities: No lower extremity edema. No Lacerations. No Rash Neuro: Oriented X 3. No motor deficit. No sensory deficit. Moving all extremities. No slurred speech. CN 2 through 12 grossly intact Psych: calm, cooperative, normal affect <Venecia Garcia MD - Last Filed: 08/29 11/20 23:32> Course Course Course Narrative: This is a rapid medical exam. Deferred additional HPI, ROS, PE to primary provider. 22 yo female with history of asthma here with complaints of headache which began today, feeling nausea, dizzy today. Had an episode of vomiting BRB tonight at 8pm. No abdominal pain, diarrhea. No AC therapy use. No black or bloody stools. Will obtain labs, UA, urine , viral testing. VSS with excetion of HTN. <Sada Pearson NP - Last Filed: 09/09/22 20:30> This is a rapid medical exam. Deferred additional HPI, ROS, PE to primary provider. 22 yo female with history of asthma here with complaints of headache which began today, feeling nausea, dizzy today. Had an episode of vomiting BRB tonight at 8pm. No abdominal pain, diarrhea. No AC therapy use. No black or bloody stools. Will obtain labs, UA, urine , viral testing. VSS with excetion of HTN. So far, patient has not vomited. Digital rectal exam pending. H and H stable. Patient receiving IV fluids, Benadryl, Reglan, IV morphine and pantoprazole. Guaiac test negative, patient has not vomited in the emergency room. After the above-mentioned treatment, patient states she feels much better, headache completely resolved. <Venecia Garcia MD - Last Filed: 09/09/22 23:32> Medical Decision Making Differential Diagnosis Differential Diagnoses: The differential diagnosis associated with the presentation includes (Tension headache, migraine headache) <Venecia Garcia MD - Last Filed: 12/12/22 23:32> Lab Data MDM Lab Attestation statement: I reviewed the patient's lab results. <Venecia Garcia MD - Last Filed: 09/09/22 23:32> Result Diagrams: : 09/09/22 20:34 09/09/22 20:34 <Sada Pearson NP - Last Filed: 09/09/22 20:30> Labs: Lab Results 09/09/22 09/09/22 09/09/22 Range/Units 20:34 20:34 20:34 WBC 9.0 (4.8-10.8) X10*3/uL RBC 4.06 L (4.20-5.50) X10*6/uL Hgb 12.1 (12.0-16.0) g/dl Hct 36.0 L (37.0-47.0) % MCV 88.7 (80.0-98.0) fL MCH 29.8 (27.0-33.0) pg MCHC 33.6 (31.0-35.0) g/dl RDW 13.2 (11.0-16.0) % Plt Count 338 (160-400) X10*3/uL MPV 9.2 L (9.4-12.3) fL Immature Gran % (Auto) 0.3 (0.0-0.4) % Neut % (Auto) 57.3 (45-73) % Lymph % (Auto) 30.8 (20-40) % [place] % (Auto) 7.1 (2-11) % Eos % (Auto) 3.9 (0-4) % Baso % (Auto) 0.6 (0-2) % Lymph # (Auto) 2.8 (1.2-4.9) X10*3/uL [place] # (Auto) 0.6 (0.1-1.2) X10*3/uL Eos # (Auto) 0.4 (0.0-0.4) X10*3/uL Baso # (Auto) 0.1 (0.0-0.2) X10*3/uL Abs Immat Gran (auto) 0.03 (0.00-0.03) X10*3/uL Absolute Neuts (auto) 5.2 (2.0-8.3) x10*3/uL Absolute Nucleated RBC 0.000 (0.0-0.012) X10*3/uL Nucleated RBC % (auto) 0.0 (0.0-0.2) /100WBC PT 12.4 (10.0-13.1) SEC INR 1.1 (0.9-1.1) Sodium 139 (135-145) mmol/L Potassium 4.7 D (3.3-5.1) mmol/L Chloride 104 (96-108) mmol/L Carbon Dioxide 26 (22-29) mmol/L Anion Gap 14 (12-20) BUN 9 (9-16) mg/dL Creatinine 0.79 (0.5-1.4) mg/dL Estim Creat Clear Calc 108.2 Estimated GFR > 60 Random Glucose 85 (60-115) mg/dL Calcium 9.8 D (8.4-10.2) mg/dL Total Bilirubin 0.5 (0.0-1.0) mg/dL Direct Bilirubin 0.2 (0.0-0.5) mg/dL AST 18 (5-31) U/L ALT 17 (0-31) U/L Alkaline Phosphatase 60 (39-117) U/L Total Protein 7.6 (6.5-8.0) g/dL Albumin 4.7 (3.5-5.0) g/dL Lipase 18 (8-78) U/L Stool Occult Blood (NEGATIVE) Influenza Type A (PCR) (Negative) Influenza Type B (PCR) (Negative) RSV RNA Qual (PCR) (Negative) SARS-CoV-2 RNA (RT-PCR) (Negative) 09/09/22 09/09/22 Range/Units 20:34 22:45 WBC (4.8-10.8) X10*3/uL RBC (4.20-5.50) X10*6/uL Hgb (12.0-16.0) g/dl Hct (37.0-47.0) % MCV (80.0-98.0) fL MCH (27.0-33.0) pg MCHC (31.0-35.0) g/dl RDW (11.0-16.0) % Plt Count (160-400) X10*3/uL MPV (9.4-12.3) fL Immature Gran % (Auto) (0.0-0.4) % Neut % (Auto) (45-73) % Lymph % (Auto) (20-40) % [place] % (Auto) (2-11) % Eos % (Auto) (0-4) % Baso % (Auto) (0-2) % Lymph # (Auto) (1.2-4.9) X10*3/uL [place] # (Auto) (0.1-1.2) X10*3/uL Eos # (Auto) (0.0-0.4) X10*3/uL Baso # (Auto) (0.0-0.2) X10*3/uL Abs Immat Gran (auto) (0.00-0.03) X10*3/uL Absolute Neuts (auto) (2.0-8.3) x10*3/uL Absolute Nucleated RBC (0.0-0.012) X10*3/uL Nucleated RBC % (auto) (0.0-0.2) /100WBC PT (10.0-13.1) SEC INR (0.9-1.1) Sodium (135-145) mmol/L Potassium (3.3-5.1) mmol/L Chloride (96-108) mmol/L Carbon Dioxide (22-29) mmol/L Anion Gap (12-20) BUN (9-16) mg/dL Creatinine (0.5-1.4) mg/dL Estim Creat Clear Calc Estimated GFR Random Glucose (60-115) mg/dL Calcium (8.4-10.2) mg/dL Total Bilirubin (0.0-1.0) mg/dL Direct Bilirubin (0.0-0.5) mg/dL AST (5-31) U/L ALT (0-31) U/L Alkaline Phosphatase (39-117) U/L Total Protein (6.5-8.0) g/dL Albumin (3.5-5.0) g/dL Lipase (8-78) U/L Stool Occult Blood NEGATIVE (NEGATIVE) Influenza Type A (PCR) NEGATIVE (Negative) Influenza Type B (PCR) NEGATIVE (Negative) RSV RNA Qual (PCR) NEGATIVE (Negative) SARS-CoV-2 RNA (RT-PCR) NEGATIVE (Negative) <Sada Pearson, [employer] - Last Filed: 09/09/22 20:30> Lab Results 09/09/22 09/09/22 09/09/22 Range/Units 20:34 20:34 20:34 WBC 9.0 (4.8-10.8) X10*3/uL RBC 4.06 L (4.20-5.50) X10*6/uL Hgb 12.1 (12.0-16.0) g/dl Hct 36.0 L (37.0-47.0) % MCV 88.7 (80.0-98.0) fL MCH 29.8 (27.0-33.0) pg MCHC 33.6 (31.0-35.0) g/dl RDW 13.2 (11.0-16.0) % Plt Count 338 (160-400) X10*3/uL MPV 9.2 L (9.4-12.3) fL Immature Gran % (Auto) 0.3 (0.0-0.4) % Neut % (Auto) 57.3 (45-73) % Lymph % (Auto) 30.8 (20-40) % [place] % (Auto) 7.1 (2-11) % Eos % (Auto) 3.9 (0-4) % Baso % (Auto) 0.6 (0-2) % Lymph # (Auto) 2.8 (1.2-4.9) X10*3/uL [place] # (Auto) 0.6 (0.1-1.2) X10*3/uL Eos # (Auto) 0.4 (0.0-0.4) X10*3/uL Baso # (Auto) 0.1 (0.0-0.2) X10*3/uL Abs Immat Gran (auto) 0.03 (0.00-0.03) X10*3/uL Absolute Neuts (auto) 5.2 (2.0-8.3) x10*3/uL Absolute Nucleated RBC 0.000 (0.0-0.012) X10*3/uL Nucleated RBC % (auto) 0.0 (0.0-0.2) /100WBC PT 12.4 (10.0-13.1) SEC INR 1.1 (0.9-1.1) Sodium 139 (135-145) mmol/L Potassium 4.7 D (3.3-5.1) mmol/L Chloride 104 (96-108) mmol/L Carbon Dioxide 26 (22-29) mmol/L Anion Gap 14 (12-20) BUN 9 (9-16) mg/dL Creatinine 0.79 (0.5-1.4) mg/dL Estim Creat Clear Calc 108.2 Estimated GFR > 60 Random Glucose 85 (60-115) mg/dL Calcium 9.8 D (8.4-10.2) mg/dL Total Bilirubin 0.5 (0.0-1.0) mg/dL Direct Bilirubin 0.2 (0.0-0.5) mg/dL AST 18 (5-31) U/L ALT 17 (0-31) U/L Alkaline Phosphatase 60 (39-117) U/L Total Protein 7.6 (6.5-8.0) g/dL Albumin 4.7 (3.5-5.0) g/dL Lipase 18 (8-78) U/L Stool Occult Blood (NEGATIVE) Influenza Type A (PCR) (Negative) Influenza Type B (PCR) (Negative) RSV RNA Qual (PCR) (Negative) SARS-CoV-2 RNA (RT-PCR) (Negative) 09/09/22 09/09/22 Range/Units 20:34 22:45 WBC (4.8-10.8) X10*3/uL RBC (4.20-5.50) X10*6/uL Hgb (12.0-16.0) g/dl Hct (37.0-47.0) % MCV (80.0-98.0) fL MCH (27.0-33.0) pg MCHC (31.0-35.0) g/dl RDW (11.0-16.0) % Plt Count (160-400) X10*3/uL MPV (9.4-12.3) fL Immature Gran % (Auto) (0.0-0.4) % Neut % (Auto) (45-73) % Lymph % (Auto) (20-40) % [place] % (Auto) (2-11) % Eos % (Auto) (0-4) % Baso % (Auto) (0-2) % Lymph # (Auto) (1.2-4.9) X10*3/uL [place] # (Auto) (0.1-1.2) X10*3/uL Eos # (Auto) (0.0-0.4) X10*3/uL Baso # (Auto) (0.0-0.2) X10*3/uL Abs Immat Gran (auto) (0.00-0.03) X10*3/uL Absolute Neuts (auto) (2.0-8.3) x10*3/uL Absolute Nucleated RBC (0.0-0.012) X10*3/uL Nucleated RBC % (auto) (0.0-0.2) /100WBC PT (10.0-13.1) SEC INR (0.9-1.1) Sodium (135-145) mmol/L Potassium (3.3-5.1) mmol/L Chloride (96-108) mmol/L Carbon Dioxide (22-29) mmol/L Anion Gap (12-20) BUN (9-16) mg/dL Creatinine (0.5-1.4) mg/dL Estim Creat Clear Calc Estimated GFR Random Glucose (60-115) mg/dL Calcium (8.4-10.2) mg/dL Total Bilirubin (0.0-1.0) mg/dL Direct Bilirubin (0.0-0.5) mg/dL AST (5-31) U/L ALT (0-31) U/L Alkaline Phosphatase (39-117) U/L Total Protein (6.5-8.0) g/dL Albumin (3.5-5.0) g/dL Lipase (8-78) U/L Stool Occult Blood NEGATIVE (NEGATIVE) Influenza Type A (PCR) NEGATIVE (Negative) Influenza Type B (PCR) NEGATIVE (Negative) RSV RNA Qual (PCR) NEGATIVE (Negative) SARS-CoV-2 RNA (RT-PCR) NEGATIVE (Negative) <Venecia Garcia MD - Last Filed: 09/09/22 23:32> Medications Administered Discontinued Medications Generic Name Dose Route Start Last Admin Trade Name Freq PRN Reason Stop Dose Admin Diphenhydramine HCl 25 mg 09/09/22 22:16 09/09/22 22:38 Diphenhydramine Hcl 50 Mg/Ml Vial IVPUSH 09/09/22 22:17 25 mg ONCE ONE Administration Sodium Chloride 1,000 mls @ 999 mls/hr 09/09/22 22:16 09/09/22 22:39 Ns IVCONT 09/09/22 23:16 999 mls/hr .Q1H1M ONE Administration Metoclopramide HCl 10 mg 09/09/22 22:16 09/09/22 22:38 Metoclopramide Hcl 10 Mg/2 Ml Vial IVPUSH 09/09/22 22:17 10 mg ONCE ONE Administration Morphine Sulfate 4 mg 09/09/22 22:16 09/09/22 22:39 Morphine Sulfate 4 Mg/Ml Cartridge IVPUSH 09/09/22 22:17 4 mg ONCE ONE Administration Protocol Ondansetron HCl 4 mg 09/09/22 20:28 09/09/22 20:31 Ondansetron Odt 4 Mg Tab.Rapdis TRANSLINGU 09/09/22 20:29 4 mg ONCE ONE Administration Pantoprazole Sodium 40 mg 09/09/22 22:22 09/09/22 22:37 Pantoprazole Sodium 40 Mg/10 Ml Vial IVPUSH 09/09/22 22:23 40 mg ONCE ONE Administration <Sada Pearson NP - Last Filed: 09/09/22 20:30> Medications Administered Discontinued Medications Generic Name Dose Route Start Last Admin Trade Name Freq PRN Reason Stop Dose Admin Diphenhydramine HCl 25 mg 09/09/22 22:16 09/09/22 22:38 Diphenhydramine Hcl 50 Mg/Ml Vial IVPUSH 09/09/22 22:17 25 mg ONCE ONE Administration Sodium Chloride 1,000 mls @ 999 mls/hr 09/09/22 22:16 09/09/22 22:39 Ns IVCONT 09/09/22 23:16 999 mls/hr .Q1H1M ONE Administration Metoclopramide HCl 10 mg 09/09/22 22:16 09/09/22 22:38 Metoclopramide Hcl 10 Mg/2 Ml Vial IVPUSH 09/09/22 22:17 10 mg ONCE ONE Administration Morphine Sulfate 4 mg 09/09/22 22:16 09/09/22 22:39 Morphine Sulfate 4 Mg/Ml Cartridge IVPUSH 09/09/22 22:17 4 mg ONCE ONE Administration Protocol Ondansetron HCl 4 mg 09/09/22 20:28 09/09/22 20:31 Ondansetron Odt 4 Mg Tab.Rapdis TRANSLINGU 09/09/22 20:29 4 mg ONCE ONE Administration Pantoprazole Sodium 40 mg 09/09/22 22:22 09/09/22 22:37 Pantoprazole Sodium 40 Mg/10 Ml Vial IVPUSH 09/09/22 22:23 40 mg ONCE ONE Administration <Venecia Garcia MD - Last Filed: 09/09/22 23:32> Discharge Plan Discharge Clinical Impression: Headache <Sada Pearson NP - Last Filed: 09/09/22 20:30> Patient Disposition: Home, Self-Care <Sada Pearson NP - Last Filed: 09/09/22 20:30> Instructions: Acute Headache (ED) <Sada Pearson NP - Last Filed: 09/09/22 20:30> Additional Instructions: Please follow-up with your primary care physician tomorrow. If you have any worsening or new symptoms, please return to the emergency room or call 911 <Sada Pearson NP - Last Filed: 09/09/22 20:30> Prescriptions: New acetaminophen 500 mg tablet 500 mg PO Q6H PRN (Reason: pain) Qty: 20 0RF sumatriptan succinate 50 mg tablet See Rx Instructions .ROUTE .COMPLEX Qty: 7 0RF Rx Instructions: take 1 tab at onset of headache; if no relief may repeat 1 tab after at least 2 hrs; max = 4 tabs/24 hr No Action benzonatate 100 mg Capsule 200 mg PO TID 5 Days Qty: 30 0RF prednisone 20 mg tablet 40 mg PO DAILY Qty: 8 0RF albuterol sulfate 90 mcg/actuation HFA aerosol inhaler 2 puff inhalation Q6H PRN (Reason: shortness of breath or wheezing) Qty: 8.5 0RF prednisone 20 mg tablet 40 mg PO DAILY Qty: 10 0RF fluticasone propionate [24 Hour Allergy Relief] 50 mcg/actuation sp ray,suspension 1 spray intranasal BID Qty: 16 0RF Rx Instructions: administer into each nostril hydrocodone-homatropine [Hycodan] 5-1.5 mg/5 mL (5 mL) syrup 5 ml PO Q6H PRN (Reason: cough) Qty: 60 0RF Rx Instructions: Partial Fill upon patient request. azithromycin [Zithromax Z-Walter] 250 mg tablet See Rx Instructions .ROUTE .COMPLEX Qty: 6 0RF Rx Instructions: take 500 mg today (day 1), then 250 mg for 4 days (days 2-5) <Sada Pearson NP - Last Filed: 09/09/22 20:30>
[2022-09-09 20:27] VITALS: BP 185/80; PULSE 85; RESP 20; TEMP 37; O2SAT 100; BMI 29.2
[2022-09-09] MEDS: Ondansetron ODT 4 MG TAB.RAPDIS TRANSLINGU (20:31)
[2022-09-09 20:40] LABS: MANUAL DIFF FLAG NO
[2022-09-09 20:43] LABS: Basophils Absolute Auto 0.1 X10*3/uL (0.0-0.2); Basophils Percent Auto 0.6 % (0-2); Eosinophils Absolute Auto 0.4 X10*3/uL (0.0-0.4); Eosinophils Percent Auto 3.9 % (0-4); Hemoglobin 12.1 g/dl (12.0-16.0); Imm Gran Abs Auto 0.03 X10*3/uL (0.00-0.03); Imm Gran Pct Auto 0.3 % (0.0-0.4); Lymphocytes Absolute Auto 2.8 X10*3/uL (1.2-4.9); Lymphocytes Percent Auto 30.8 % (20-40); Mean Corpuscular HGB Conc 33.6 g/dl (31.0-35.0); Mean Corpuscular Hemoglobin 29.8 pg (27.0-33.0); Mean Corpuscular Volume 88.7 fL (80.0-98.0); Mean Platelet Volume 9.2 fL (9.4-12.3); Monocytes Absolute Auto 0.6 X10*3/uL (0.1-1.2); Monocytes Percent Auto 7.1 % (2-11); Neutrophils Absolute Auto 5.2 x10*3/uL (2.0-8.3); Neutrophils Percent Auto 57.3 % (45-73); Platelet Count 338 X10*3/uL (160-400); Red Blood Count 4.06 X10*6/uL (4.20-5.50); Red Cell Distribution Width 13.2 % (11.0-16.0)
[2022-09-09 20:48] LABS: INTERNATIONAL NORM RATIO 1.1 (0.9-1.1); Prothrombin Time 12.4 SEC (10.0-13.1)
[2022-09-09 20:57] LABS: Alanine Aminotransferase 17 U/L (0-31); Albumin Level 4.7 g/dL (3.5-5.0); Alkaline Phosphatase 60 U/L (39-117); Anion Gap 14 (12-20); Aspartate Amino Transferase 18 U/L (5-31); Bilirubin Direct 0.2 mg/dL (0.0-0.5); Bilirubin Total 0.5 mg/dL (0.0-1.0); Blood Urea Nitrogen 9 mg/dL (9-16); Calcium 9.8 mg/dL (8.4-10.2); Carbon Dioxide 26 mmol/L (22-29); Chloride 104 mmol/L (96-108); Creatinine Clr Calc Pharmacy 108.2; Estimated Glomerular Filt Rate > 60; Glucose Random 85 mg/dL (60-115); Lipase 18 U/L (8-78); Potassium 4.7 mmol/L (3.3-5.1); Sodium 139 mmol/L (135-145); Total Protein 7.6 g/dL (6.5-8.0)
[2022-09-09 21:20] LABS: Influenza A PCR NEGATIVE (Negative); Influenza B PCR NEGATIVE (Negative); Resp Syncy Virus RNA Qual PCR NEGATIVE (Negative); SARS COV2 PCR INHOUSE NEGATIVE (Negative)
[2022-09-09 22:30] VITALS: BP 136/77; PULSE 63; RESP 18; TEMP 37.1; O2SAT 100
[2022-09-09] MEDS: Pantoprazole Sodium 40 MG/10 ML VIAL IVPUSH (22:37)
[2022-09-09] MEDS: Metoclopramide HCl 10 MG/2 ML VIAL IVPUSH (22:38)
[2022-09-09] MEDS: diphenhydrAMINE HCL 50 MG/ML VIAL 25 MG IVPUSH (22:38)
[2022-09-09] MEDS: 0.9 % Sodium Chloride 1,000 ML 999 ML IVCONT (22:39)
[2022-09-09] MEDS: Morphine Sulfate 4 MG/ML CARTRIDGE IVPUSH (22:39)
[2022-09-09 22:54] LABS: OBS Int Ctl Valid YES; OBS1 NEGATIVE (NEGATIVE)
--- NOTE | 2022-09-09 23:06 | PC.NURSE ---
this rn assisted dr mobley with bedside rectal exam. pt tolerated well. occult card sent down to lab. pt medicated according to radha
[2022-09-09 23:14] VITALS: BP 102/67; PULSE 89; RESP 18; TEMP 36.8; O2SAT 98
[2022-09-09 23:55] LABS: HCG Quantitative 10 mIU/mL
[2022-09-10 00:12] VITALS: BP 118/85; PULSE 76
== END 2022-09-10 00:22 | disposition home or self-care (01) ==
PROVIDERS: Nurse Practitioner Family; Emergency Provider Emergency Medicine
DX: R51.9 Headache, unspecified (principal); Z20.822 Contact with and (suspected) exposure to COVID-19
CPT/HCPCS: 0241U; 36415; 80048; 80076; 82272; 83690; 84702; 85025; 85610; 96361; 96374; 96375; 99284; J1200; J2270; J2765

== ENCOUNTER 2022-10-13 10:25 | Emergency (ER) | payer OTHER, SELFPAY ==
--- NOTE | ~2022-10-13 | CT_ITS ---
EXAMINATION: CT SOFT TISSUE NECK WITH CONTRAST CLINICAL INFORMATION: Right neck swelling and pain. COMPARISON: None TECHNIQUE: Following the intravenous administration of 60 mL of Omnipaque 350 intravenous contrast, helical imaging was performed in the axial plane with generation of coronal and sagittal reformatted images. This CT examination was performed using dose optimization techniques as appropriate, variously including the following: *Automated exposure control *Adjustment of mA and/or kV according to patient size (this includes techniques or standardized protocols for targeted exams where dose is matched to indication/reason for exam; i.e. extremities or head) *Use of iterative reconstruction technique DLP: 728 mGy-cm FINDINGS: Parotid glands, submandibular glands, and thyroid gland have normal attenuation. The nasopharynx, oral cavity, tongue base, and tonsillar pillars are unremarkable. No contour abnormality or pathologic enhancement within the oral cavity or pharyngeal mucosal space. The parapharyngeal fat planes are preserved. The hypopharynx, epiglottis, and preepiglottic space are normal. Laryngeal structures normal. There is soft tissue edema of the right neck. Findings include edematous thickening of the proximal right sternocleidomastoid muscle, edema within subcutaneous tissues, and trace amount of fluid and edema between several paraspinal muscles of the right posterolateral neck and deep to the sternocleidomastoid. However, there is no evidence of a focal organized rim-enhancing collection. No soft tissue gas. There are lymph nodes within the right neck are larger than those seen within the left neck. Lymph node measurements are given in short axis dimension. A lymph node within the superficial right parotid gland is 0.9 cm (compared to 0.6 cm within the contralateral left parotid gland). Largest level 2 lymph node of the right neck is 1.1 cm. A level 5a lymph node in the right neck is 0.9 cm The carotid and vertebral arteries opacify normally; the venous structures are unremarkable. No venous thrombosis. Skull base is intact and the mastoid air cells and middle ear cavities are clear. The visualized intracranial structures are normal. Small amount of secretions and mild mucosal thickening of the left maxillary sinus. Otherwise, the paranasal sinuses are well aerated and ostiomeatal units are patent. The orbital collins, globes and retrobulbar soft tissues are unremarkable. Dental caries involving right maxillary first premolar tooth and left maxillary second premolar tooth. No periapical lucencies. No evidence of an odontogenic abscess. Cervical spine is normal. No prevertebral soft tissue swelling. No spinal canal stenosis. Lung apices are normal. CT/CT soft tissue neck w IV con IMPRESSION: * There is soft tissue edema/inflammation of the right posterolateral neck, including edematous thickening of the proximal right sternocleidomastoid muscle. Findings could represent combination of cellulitis and mild myositis. * No evidence of soft tissue abscess. * Multiple mildly enlarged lymph nodes are present within the neck and the largest right level 2A lymph node is 1.1 cm in short axis dimension. There are no cystic or necrotic lymph nodes. * Dental caries involving right maxillary first premolar tooth and left maxillary second premolar tooth. No periapical lucencies. No evidence of an odontogenic abscess.
[2022-10-13 10:27] VITALS: BP 112/67; PULSE 110; RESP 18; TEMP 36.7; O2SAT 97; BMI 29.2
--- NOTE | 2022-10-13 10:56 | ED_ITS ---
HPI - General Adult General Chief complaint: General Medical Stated complaint: swollen neck Time Seen by Provider: 10/13/22 10:49 Source: patient and family Mode of arrival: ambulatory Limitations: no limitations History of Present Illness HPI narrative: 22-year-old female came in for evaluation of right-sided neck pain and swelling. Symptoms started about 3-4 days ago as a right-sided neck pain, patient noticed a right-sided neck swelling that is extending behind the right ear, no fever, no chills, no shortness of breath, able to swallow her own saliva with no drooling, no sick contacts, no recent travel. Patient admits to smoke marijuana but never used IV drugs, no alcohol use. Patient declined chance of being . Related Data Previous Rx's Medication Instructions Recorded albuterol sulfate 90 mcg/actuation 2 puff inhalation Q6H PRN 08/31/21 aerosol inhaler shortness of breath or wheezing #8.5 grams benzonatate 100 mg capsule 200 mg PO TID 5 days #30 caps 08/31/21 prednisone 20 mg tablet 40 mg PO DAILY #8 tabs 08/31/21 azithromycin 250 mg tablet See Rx Instructions PO .COMPLEX #6 06/29/22 (Zithromax Z-Walter) tabs fluticasone propionate 50 1 spray intranasal BID #16 grams 06/29/22 mcg/actuation nasal spray,suspension (24 Hour Allergy Relief) hydrocodone-homatropine 5 mg-1.5 5 ml PO Q6H PRN cough #60 mL 06/29/22 mg/5 mL (5 mL) oral syrup (Hycodan) prednisone 20 mg tablet 40 mg PO DAILY #10 tabs 06/29/22 acetaminophen 500 mg tablet 500 mg PO Q6H PRN pain #20 tabs 09/09/22 sumatriptan succinate 50 mg tablet See Rx Instructions PO .COMPLEX #7 09/09/22 tabs amoxicillin 875 mg-potassium 1 tab PO BID #20 tabs 10/13/22 clavulanate 125 mg tablet sulfamethoxazole 800 1 tab PO BID #20 tabs 10/13/22 mg-trimethoprim 160 mg tablet (Bactrim DS) Allergies Allergy/AdvReac Type Severity Reaction Status Date / Time cucumber [CUCUMBER] Allergy Unknown RASH Verified 10/13/22 10:27 peanut [PEANUT] Allergy Unknown RASH Verified 10/13/22 10:27 Review of Systems Review of Systems: All other systems are reviewed and are negative Constitutional: Reports as per HPI and Reports no additional constitutional complaints Eyes: Reports as per HPI and Reports no additional eye complaints Reports system reviewed and no additional complaints, except as documented Cardiovascular: Reports as per HPI and Reports no additional cardiovascular complaints Respiratory: Reports as per HPI and Reports no additional respiratory complaints Gastrointestinal: Reports as per HPI and Reports no additional gastrointestinal complaints Genitourinary: Reports no additional female genitourinary complaints Musculoskeletal: Reports no additional musculoskeletal complaints Skin/Breast: Reports system reviewed and no additional complaints, except as docu Psychiatric: Reports no additional psychiatric complaints Endocrine: Reports no additional endocrine complaints Hematologic/Lymphatic: Reports no additional hematologic/lymphatic complaints Allergic/Immunologic: Reports no additional allergic/immunologic complaints Reports system reviewed and no additional complaints, except as documented and Reports Abnormal speech present [facility] Past Medical History Medical History Asthma Surgical History No pertinent past surgical history Family History Family History Other No pertinent family history Social History Social History Household Members: None Housing: Homeless Do you presently have visiting nurse or other home services: No Alcohol intake: current Alcohol intake frequency: does not drink Patient Tobacco Use Status: Never used Tobacco Smoked in Last 30 Days: Yes Second Hand Smoke Exposure: No Use of substances other than those prescribed or required for medical reasons: Yes Substance Use Type: Marijuana Any prior treatment program specific to substance use: No Advance Directives: No Advance Directives Information Provided: Yes service: No Current occupational status: unemployed Physical Exam ED Vital Signs: Vital Signs - 24 hr 10/13/22 10:27 10/13/22 12:23 Temperature 98.0 F Pulse Rate 110 H 85 Respiratory Rate 18 18 Blood Pressure 112/67 119/83 Pulse Oximetry 97 98 Oxygen Delivery Method Room Air Room Air BMI result Body Mass Index 29.2 Vital signs have been reviewed as appeared to be correct. Blood pressure normal. Heart rate normal. Respiration rate normal. Temperature normal. Oxygen saturation normal. Appearance: Alert. Oriented X3. No acute distress. Head: Normal external exam. Normocephalic. Atraumatic. No Huynh signs noted. No raccoon eyes noted Eyes: PERRLA. EOMI. Conjunctiva and sclera normal. Eyelids normal. ENT: TM's Normal. Pharynx normal. Uvula midline. Moist mucous membranes. No trismus noted. No drooling noted. No muffled voice noted. Soft tissue right- sided neck swelling, no stridor, patent airway, no abscess or fluctuation is appreciated in the neck area. Neck: Normal inspection. Neck supple. FROM. No adenopathy. Thyroid Normal. No meningeal signs. No neck mass noted. CVS: Normal heart rate and rhythm. Heart sound normal. No murmurs noted. Pulses normal throughout. Respiratory: No respiratory distress. Painless inspiration. Breath sounds normal. No wheezes/rales/rhonchi noted. Chest nontender. No accessory muscle usage noted or decreased air movement noted. Abdomen: Soft and nontender. Bowel sounds normal in all 4 quadrants. No distention noted. No organomegaly noted. No visible injury noted. Back: No CVA tenderness. Full range of motion noted. Skin: Skin warm and dry. Normal skin color. Normal skin turgor. No rashes/lesions/lacerations noted. Extremities: No lower extremity edema. Extremities exhibit normal range of motion. Extremities nontender. Neuro: Oriented X 3. Cranial nerve exam: II-XII are grossly intact No motor deficit. No sensory deficit. Reflexes normal. Course Course Course Narrative: Right-side neck soft tissue infection cellulitis with unknown underlying leann ology patient has a normal dental exam with no evidence of dental infection or gingivitis, right ear showing no infection will start the patient on Augmentin and Bactrim patient was instructed if worsening of her symptoms to return to the ED for possible admission and IV antibiotic. Patient do not meet criteria for SIRS or septic shock or severe sepsis. Medications Administered Discontinued Medications Generic Name Dose Route Start Last Admin Trade Name Freq PRN Reason Stop Dose Admin Iohexol 70 ml 10/13/22 12:20 10/13/22 12:20 Iohexol 350 Mg/Ml 100 Ml Infus..Btl IV 10/13/22 12:21 70 ml ONCE ONE Administration Medical Decision Making Differential Diagnosis Differential Diagnoses: The differential diagnosis associated with the presentation includes (Right neck cellulitis, soft tissue abscess, right ear infection, pharyngitis, dental infection and abscess.) Lab Data MDM Lab Attestation statement: I reviewed the patient's lab results. 10/13/22 11:01 10/13/22 11:01 Labs: Lab Results 10/13/22 10/13/22 10/13/22 Range/Units 11:01 11:01 11:06 WBC 13.6 H (4.8-10.8) X10*3/uL RBC 4.27 (4.20-5.50) X10*6/uL Hgb 12.5 (12.0-16.0) g/dl Hct 38.1 (37.0-47.0) % MCV 89.2 (80.0-98.0) fL MCH 29.3 (27.0-33.0) pg MCHC 32.8 (31.0-35.0) g/dl RDW 13.3 (11.0-16.0) % Plt Count 385 (160-400) X10*3/uL MPV 9.2 L (9.4-12.3) fL Immature Gran % (Auto) 0.3 (0.0-0.4) % Neut % (Auto) 77.5 H (45-73) % Lymph % (Auto) 13.9 L (20-40) % Ulster % (Auto) 6.7 (2-11) % Eos % (Auto) 1.3 (0-4) % Baso % (Auto) 0.3 (0-2) % Lymph # (Auto) 1.9 (1.2-4.9) X10*3/uL Ulster # (Auto) 0.9 (0.1-1.2) X10*3/uL Eos # (Auto) 0.2 (0.0-0.4) X10*3/uL Baso # (Auto) 0.0 (0.0-0.2) X10*3/uL Abs Immat Gran (auto) 0.04 H (0.00-0.03) X10*3/uL Absolute Neuts (auto) 10.5 H (2.0-8.3) x10*3/uL Absolute Nucleated RBC 0.000 (0.0-0.012) X10*3/uL Nucleated RBC % (auto) 0.0 (0.0-0.2) /100WBC Sodium 138 (135-145) mmol/L Potassium 4.2 (3.3-5.1) mmol/L Chloride 108 (96-108) mmol/L Carbon Dioxide 18 L (22-29) mmol/L Anion Gap 15 (12-20) BUN 10 (9-16) mg/dL Creatinine 0.77 (0.5-1.4) mg/dL Estim Creat Clear Calc 111.0 Estimated GFR > 60 Random Glucose 94 (60-115) mg/dL Calcium 9.4 (8.4-10.2) mg/dL Beta HCG, Quant < 2 mIU/mL Influenza Type A (PCR) (Negative) Influenza Type B (PCR) (Negative) RSV RNA Qual (PCR) (Negative) SARS-CoV-2 RNA (RT-PCR) (Negative) S. pyogenes GrpA PATRICK Negative (Negative) 10/13/22 Range/Units 11:06 WBC (4.8-10.8) X10*3/uL RBC (4.20-5.50) X10*6/uL Hgb (12.0-16.0) g/dl Hct (37.0-47.0) % MCV (80.0-98.0) fL MCH (27.0-33.0) pg MCHC (31.0-35.0) g/dl RDW (11.0-16.0) % Plt Count (160-400) X10*3/uL MPV (9.4-12.3) fL Immature Gran % (Auto) (0.0-0.4) % Neut % (Auto) (45-73) % Lymph % (Auto) (20-40) % Ulster % (Auto) (2-11) % Eos % (Auto) (0-4) % Baso % (Auto) (0-2) % Lymph # (Auto) (1.2-4.9) X10*3/uL Ulster # (Auto) (0.1-1.2) X10*3/uL Eos # (Auto) (0.0-0.4) X10*3/uL Baso # (Auto) (0.0-0.2) X10*3/uL Abs Immat Gran (auto) (0.00-0.03) X10*3/uL Absolute Neuts (auto) (2.0-8.3) x10*3/uL Absolute Nucleated RBC (0.0-0.012) X10*3/uL Nucleated RBC % (auto) (0.0-0.2) /100WBC Sodium (135-145) mmol/L Potassium (3.3-5.1) mmol/L Chloride (96-108) mmol/L Carbon Dioxide (22-29) mmol/L Anion Gap (12-20) BUN (9-16) mg/dL Creatinine (0.5-1.4) mg/dL Estim Creat Clear Calc Estimated GFR Random Glucose (60-115) mg/dL Calcium (8.4-10.2) mg/dL Beta HCG, Quant mIU/mL Influenza Type A (PCR) NEGATIVE (Negative) Influenza Type B (PCR) NEGATIVE (Negative) RSV RNA Qual (PCR) NEGATIVE (Negative) SARS-CoV-2 RNA (RT-PCR) NEGATIVE (Negative) S. pyogenes GrpA PATRICK (Negative) Independent Interpretation I performed an independent interpretation of an: CT Scan (Soft tissue neck: Soft tissue cellulitis) Radiology Impression Discussion of test interpretation with radiology: I have reviewed the radiologist's reading. (* There is soft tissue edema/inflammation of the right posterolateral neck, including edematous thickening of the proximal right sternocleidomastoid muscle. Findings could represent combination of cellulitis and mild myositis. * No evidence of soft tissue abscess. * Multiple mildly enlarged lymph) Discharge Plan Discharge Clinical Impression: Cellulitis of skin Patient Disposition: Home, Self-Care Instructions: Cellulitis (ED) Additional Instructions: Return to the ED in 2 days for wound check, seek immediate medical attention if any change of voice unable to swallow or unable to breathe or if you notice any increase of the size of the infection despite taking the antibiotic. Prescriptions: New amoxicillin-pot clavulanate 875-125 mg tablet 1 tab PO BID Qty: 20 0RF sulfamethoxazole-trimethoprim [Bactrim DS] 800-160 mg tablet 1 tab PO BID Qty: 20 0RF No Action acetaminophen 500 mg tablet 500 mg PO Q6H PRN (Reason: pain) Qty: 20 0RF sumatriptan succinate 50 mg tablet See Rx Instructions .ROUTE .COMPLEX Qty: 7 0RF Rx Instructions: take 1 tab at onset of headache; if no relief may repeat 1 tab after at least 2 hrs; max = 4 tabs/24 hr benzonatate 100 mg Capsule 200 mg PO TID 5 Days Qty: 30 0RF prednisone 20 mg tablet 40 mg PO DAILY Qty: 8 0RF albuterol sulfate 90 mcg/actuation HFA aerosol inhaler 2 puff inhalation Q6H PRN (Reason: shortness of breath or wheezing) Qty: 8.5 0RF prednisone 20 mg tablet 40 mg PO DAILY Qty: 10 0RF fluticasone propionate [24 Hour Allergy Relief] 50 mcg/actuation spray,suspension 1 spray intranasal BID Qty: 16 0RF Rx Instructions: administer into each nostril hydrocodone-homatropine [Hycodan] 5-1.5 mg/5 mL (5 mL) syrup 5 ml PO Q6H PRN (Reason: cough) Qty: 60 0RF Rx Instructions: Partial Fill upon patient request. azithromycin [Zithromax Z-Walter] 250 mg tablet See Rx Instructions .ROUTE .COMPLEX Qty: 6 0RF Rx Instructions: take 500 mg today (day 1), then 250 mg for 4 days (days 2-5) Stand Alone Forms: Work/School Release
[2022-10-13 11:06] LABS: MANUAL DIFF FLAG NO
[2022-10-13 11:07] LABS: Basophils Percent Auto 0.3 % (0-2); Eosinophils Absolute Auto 0.2 X10*3/uL (0.0-0.4); Eosinophils Percent Auto 1.3 % (0-4); Hematocrit 38.1 % (37.0-47.0); Hemoglobin 12.5 g/dl (12.0-16.0); Imm Gran Abs Auto 0.04 X10*3/uL (0.00-0.03); Imm Gran Pct Auto 0.3 % (0.0-0.4); Lymphocytes Absolute Auto 1.9 X10*3/uL (1.2-4.9); Lymphocytes Percent Auto 13.9 % (20-40); Mean Corpuscular HGB Conc 32.8 g/dl (31.0-35.0); Mean Corpuscular Hemoglobin 29.3 pg (27.0-33.0); Mean Corpuscular Volume 89.2 fL (80.0-98.0); Mean Platelet Volume 9.2 fL (9.4-12.3); Monocytes Absolute Auto 0.9 X10*3/uL (0.1-1.2); Monocytes Percent Auto 6.7 % (2-11); Neutrophils Absolute Auto 10.5 x10*3/uL (2.0-8.3); Neutrophils Percent Auto 77.5 % (45-73); Platelet Count 385 X10*3/uL (160-400); Red Blood Count 4.27 X10*6/uL (4.20-5.50); Red Cell Distribution Width 13.3 % (11.0-16.0); White Blood Count 13.6 X10*3/uL (4.8-10.8)
--- NOTE | 2022-10-13 11:12 | PC.NURSE ---
Patient presents with right sided neck pain and swelling. No recent bug bite scratch or dental issues no stridor or airway impingement noted. LS clear no respiratory distress noted. IV access obtained labs collected and sent will CTM.
[2022-10-13 11:31] LABS: IDNOW Serial# 08D9AD1C; Strep A Nucleic Acid Negative (Negative)
[2022-10-13 11:49] LABS: Anion Gap 15 (12-20); Blood Urea Nitrogen 10 mg/dL (9-16); Calcium 9.4 mg/dL (8.4-10.2); Carbon Dioxide 18 mmol/L (22-29); Chloride 108 mmol/L (96-108); Estimated Glomerular Filt Rate > 60; Glucose Random 94 mg/dL (60-115); HCG Quantitative < 2 mIU/mL; Potassium 4.2 mmol/L (3.3-5.1); Sodium 138 mmol/L (135-145)
[2022-10-13 11:54] LABS: Influenza A PCR NEGATIVE (Negative); Influenza B PCR NEGATIVE (Negative); Resp Syncy Virus RNA Qual PCR NEGATIVE (Negative); SARS COV2 PCR INHOUSE NEGATIVE (Negative)
--- NOTE | 2022-10-13 11:59 | PC.NURSE ---
Patient to CT
[2022-10-13] MEDS: iohexoL 350 MG/ML 100 ML INFUS..BTL 70 ML IV (12:20)
[2022-10-13 12:23] VITALS: BP 119/83; PULSE 85; RESP 18; O2SAT 98
--- NOTE | 2022-10-13 13:48 | PC.NURSE ---
Patient request for pain meds aware awaiting orders
[2022-10-13] MEDS: Ibuprofen 800 MG TABLET PO (14:20)
[2022-10-13] MEDS: Sulfamethox/Trimeth 800/160 TABLET 1 TAB PO (14:20)
[2022-10-13] MEDS: Amoxicillin/Potassium Clav 875 MG TABLET PO (14:20)
== END 2022-10-13 14:33 | disposition home or self-care (01) ==
PROVIDERS: Emergency Provider Emergency Medicine
DX: L03.221 Cellulitis of neck (principal); M54.2 Cervicalgia; Z20.822 Contact with and (suspected) exposure to COVID-19; Z20.828 Contact with and (suspected) exposure to other viral communicable diseases; Z79.899 Other long term (current) drug therapy
CPT/HCPCS: 0241U; 36415; 70491; 80048; 84702; 85025; 87651; 99284; Q9967

== ENCOUNTER 2023-02-03 08:53 | Emergency (ER) | payer OTHER, SELFPAY ==
--- NOTE | ~2023-02-03 | US_ITS ---
EXAMINATION: US FIRST TRIMESTER CLINICAL INFORMATION: Vaginal bleeding LMP: Unknown Beta-hCG: Positive test. COMPARISON: None available. TECHNIQUE: Transabdominal imaging was performed. FINDINGS: UTERUS AND INTRAUTERINE GESTATIONAL SAC: There is a single intrauterine gestational sac. CROWN-RUMP LENGTH (CRL) : 0.2 cm, estimated age 5 weeks and 6 days, estimated date of confinement is 09/30/2023 YOLK SAC: Not found HEART MOTION: 109 BPM. SUBCHORIONIC HEMORRHAGE: None OVARIES: Right: Normal Left: Normal FREE FLUID: None OTHER FINDINGS: None US/US OB <= 14 weeks fetus IMPRESSION: 1. Single live intrauterine . 2. Estimated age 5 weeks and 6 days..
[2023-02-03 09:06] VITALS: BP 109/56; PULSE 81; RESP 16; TEMP 36.7; O2SAT 99; BMI 28.3
--- NOTE | 2023-02-03 09:58 | ED_ITS ---
HPI - General Chief complaint: Vaginal Bleeding Stated complaint: vaginal bleeding Time Seen by Provider: 02/03/23 09:47 Source: patient, family and RN notes reviewed Mode of arrival: ambulatory Limitations: no limitations History of Present Illness HPI Narrative: This is a 22-year-old female, who presents to the emergency department with complaints of vaginal bleeding and lower abdominal cramping which started this morning. Patient reports that she had a positive test at home but is unsure how far along she is. She reports that her last menstrual cycle was December 11. Her 1st OB appointment on February 14. No other complaints or concerns at this time. MD Complaint: abdominal pain and vaginal bleeding Onset (ago): day(s) Pain Consistency: intermittent Quality: Cramping Relieving factors: none Exacerbating factors: none Associated symptoms: denies other symptoms Vaginal discharge: none Vaginal bleeding: light Date of Last Menstrual Period: 12/11/22 Patient : Yes Expected Date of Delivery: 10/06/23 Related Data Previous Rx's Medication Instructions Recorded albuterol sulfate 90 mcg/actuation 2 puff inhalation Q6H PRN 08/31/21 aerosol inhaler shortness of breath or wheezing #8.5 grams benzonatate 100 mg capsule 200 mg PO TID 5 days #30 caps 08/31/21 prednisone 20 mg tablet 40 mg PO DAILY #8 tabs 08/31/21 azithromycin 250 mg tablet See Rx Instructions PO .COMPLEX #6 06/29/22 (Zithromax Z-Walter) tabs fluticasone propionate 50 1 spray intranasal BID #16 grams 06/29/22 mcg/actuation nasal spray,suspension (24 Hour Allergy Relief) hydrocodone-homatropine 5 mg-1.5 5 ml PO Q6H PRN cough #60 mL 06/29/22 mg/5 mL (5 mL) oral syrup (Hycodan) prednisone 20 mg tablet 40 mg PO DAILY #10 tabs 06/29/22 acetaminophen 500 mg tablet 500 mg PO Q6H PRN pain #20 tabs 09/09/22 sumatriptan succinate 50 mg tablet See Rx Instructions PO .COMPLEX #7 09/09/22 tabs amoxicillin 875 mg-potassium 1 tab PO BID #20 tabs 10/13/22 clavulanate 125 mg tablet sulfamethoxazole 800 1 tab PO BID #20 tabs 10/13/22 mg-trimethoprim 160 mg tablet (Bactrim DS) Allergies Allergy/AdvReac Type Severity Reaction Status Date / Time cucumber [CUCUMBER] Allergy Unknown RASH Verified 02/03/23 09:08 peanut [PEANUT] Allergy Unknown RASH Verified 02/03/23 09:08 Review of Systems Review of Systems: Constitutional: No Weight loss, No Fever, No Chills, No Night Sweats, No Fatigue, No Malaise ENT/Mouth: No Hearing loss, No Ear Pain, No Nasal Congestion, No Sinus Pain, No Hoarseness, No sore throat, No Rhinorrhea, No Swallowing Difficulty Eyes: No Eye Pain, No Swelling, No Redness, No Foreign Body, No Discharge, No Vision Changes Cardiovascular: No Chest Pain, No SOB, No Dyspnea on Exertion, No Orthopnea, No Edema, No Palpitations Respiratory: No Cough, No Sputum, No Wheezing, No Smoke Exposure, No Dyspnea Gastrointestinal: No Nausea, No Vomiting, No Diarrhea, No Constipation, + Abdominal pain, No Hematochezia, No Melena Genitourinary: +irregular bleeding, No Dysuria, No Urinary Frequency, No Hematuria, No Urinary Incontinence/retention, No Urgency, No Flank Pain, No Urinary Flow Changes, No Hesitancy Musculoskeletal: No joint pain, No Myalgias, No Joint Swelling Skin: No Skin Lesions, No rash Neuro: No Weakness, No Numbness, No Paresthesias, No Loss of Consciousness, No Dizziness, No Headache Psych: No Anxiety/Panic, No Depression, No SI/HI/AH/VH, No Social Issues, Heme/Lymph: No Bruising, No Bleeding,No Lymphadenopathy Endocrine: No Polyuria, No Polydipsia, No Temperature Intolerance Yes all other systems are reviewed and are negative Constitutional: Constitutional: Reports as per [facility] Past Medical History Medical History Asthma Surgical History No pertinent past surgical history Date of Last Menstrual Period: 12/11/22 Family History Family History Other No pertinent family history Social History Social History Household Members: None Housing: Homeless Do you presently have visiting nurse or other home services: No Alcohol intake: never Patient Tobacco Use Status: Never used Tobacco Smoked in Last 30 Days: No Second Hand Smoke Exposure: No Use of substances other than those prescribed or required for medical reasons: No Substance Use Type: Marijuana Advance Directives: No Advance Directives Information Provided: Yes Patient : Yes service: No Current occupational status: unemployed Physical Exam Vital Signs: Vital Signs: Last Vital Signs Temp 98.1 F 02/03/23 11:16 Pulse 70 02/03/23 11:16 Resp 18 02/03/23 11:16 BP 109/64 02/03/23 11:16 Pulse Ox 100 02/03/23 11:16 O2 Del Method Room Air 02/03/23 11:16 BMI result Body Mass Index 28.3 Const: General: cooperative, comfortable and no acute distress Orientation/consciousness: patient oriented x3 Limitations: no limitations HEENT: Head: Yes normal to inspection, Yes normocephalic and Yes atraumatic Ears: hearing grossly normal bilaterally General nose exam: Normal external nose present Face and sinus: Yes normal facial exam Mouth: Normal oral and palatal mucosa present, oropharynx normal and moist mucous membranes Throat: Yes posterior oropharynx normal Eyes: General: appearance normal, both eyes and all related structures Eyelids: Yes eyelids normal Conjunctivae: conjunctivae normal Sclerae: sclerae normal Pupils: Equal, round and reactive pupils present EOM: EOMs intact bilaterally Neck: Neck: Yes normal visual inspection, Yes full ROM and Yes no lymphadenopathy Lymphatic: no lymphadenopathy noted Chest: Chest palpation & inspection: normal inspection of the chest Resp: Effort & Inspection: normal respiratory effort and able to speak in complete sentences Auscultation: clear to auscultation bilaterally, no crackles, no rales, no rhonchi and no wheezes Cardio: Rate: regular rate Rhythm: regular rhythm Heart sounds: S1 normal heart sound present and S2 normal heart sound present GI: Other: Abdomen is soft, nontender, no rebound or guarding. Normoactive bowel sounds present. Inspection: Yes normal to inspection : General: Yes deferred Skin: General skin exam: no rashes or lesions noted Trauma: no lacerations or abrasions Wounds: no wounds Neuro: General: patient oriented x3 and moves all extremities Cranial nerves: Yes Equal, round and reactive pupils present Extrem: General: Yes normal to inspection Right upper extremity: normal to inspection Left upper extremity: normal to inspection Right lower extremity: normal to inspection Left lower extremity: normal to inspection Course Reevaluation(s) Reevaluation #1: Patient re-evaluated, has urinated 3 times since being Hospital and has not had any vaginal bleeding since. The ultrasound revealing single live intrauterine , age 5 weeks and 6 days, estimated due date 09/30/2023. H&H stable, all other blood work is nondiagnostic. Discussed with patient that I can do a vaginal speculum exam to ensure that her cervical os is closed however patient declines this. Discussed with patient that it is unclear whether not this is an early sign miscarriage or just abnormal uterine bleeding during . She will be calling her OBGYN in regards to this visit today. She has had no cramping or vaginal bleeding. Vital signs stable. Patient stable for discharge. Time: 13:43 Medical Decision Making Medical Decision Making [facility] Narrative: This is a 22-year-old female, who presents to the emergency department with complaints of vaginal bleeding and lower abdominal cramping which started this morning. Patient reports that she is currently , not sure how far along she is. She reports that her last menstrual period was December 11. She has not been followed by OBGYN. Her 1st appointment is February 14. Vital signs within normal limits. Patient is nontoxic appearing and stable. In no acute distress. Plan: Labs, UA, ultrasound. Differential Diagnosis Differential Diagnoses: The differential diagnosis associated with the presentation includes , threatened , ectopic , UTI, Admission/Observation Consideration of admission/observation: Escalation of care including admission/observation considered Lab Data [facility] Lab Attestation statement: I reviewed the patient's lab results. 02/03/23 10:03 02/03/23 10:03 Labs: Lab Results 02/03/23 02/03/23 02/03/23 Range/Units 10:03 10:03 10:03 WBC 10.4 (4.8-10.8) X10*3/uL RBC 4.13 L (4.20-5.50) X10*6/uL Hgb 12.3 (12.0-16.0) g/dl Hct 37.7 (37.0-47.0) % MCV 91.3 (80.0-98.0) fL MCH 29.8 (27.0-33.0) pg MCHC 32.6 (31.0-35.0) g/dl RDW 13.7 (11.0-16.0) % Plt Count 343 (160-400) X10*3/uL MPV 9.6 (9.4-12.3) fL Immature Gran % (Auto) 0.3 (0.0-0.4) % Neut % (Auto) 62.4 (45-73) % Lymph % (Auto) 24.3 (20-40) % Ogle % (Auto) 7.0 (2-11) % Eos % (Auto) 5.6 H (0-4) % Baso % (Auto) 0.4 (0-2) % Lymph # (Auto) 2.5 (1.2-4.9) X10*3/uL Ogle # (Auto) 0.7 (0.1-1.2) X10*3/uL Eos # (Auto) 0.6 H (0.0-0.4) X10*3/uL Baso # (Auto) 0.0 (0.0-0.2) X10*3/uL Abs Immat Gran (auto) 0.03 (0.00-0.03) X10*3/uL Absolute Neuts (auto) 6.5 (2.0-8.3) x10*3/uL Absolute Nucleated RBC 0.000 (0.0-0.012) X10*3/uL Nucleated RBC % (auto) 0.0 (0.0-0.2) /100WBC Sodium 137 (135-145) mmol/L Potassium 4.3 (3.3-5.1) mmol/L Chloride 107 (96-108) mmol/L Carbon Dioxide 25 (22-29) mmol/L Anion Gap 9 L (12-20) BUN 8 L (9-16) mg/dL Creatinine 0.71 (0.5-1.4) mg/dL Estim Creat Clear Calc 118.6 Estimated GFR > 60 Random Glucose 85 (60-115) mg/dL Calcium 9.1 (8.4-10.2) mg/dL Magnesium 2.1 (1.6-2.6) mg/dL Total Bilirubin 0.4 (0.0-1.0) mg/dL Direct Bilirubin 0.2 (0.0-0.5) mg/dL AST 15 (5-31) U/L ALT 14 (0-31) U/L Alkaline Phosphatase 57 (39-117) U/L Total Protein 7.0 (6.5-8.0) g/dL Albumin 4.2 (3.5-5.0) g/dL Beta HCG, Quant 37103 mIU/mL Urine Color Yellow Urine Appearance Clear Urine pH 5.5 (5.0-9.0) Ur Specific [place] 1.025 (1.005-1.025) Urine Protein Negative (Neg-Trace) mg/dL Urine Glucose (UA) Negative (Negative) mg/dL Urine Ketones Negative (Negative) mg/dL Urine Blood Moderate (2+) H (Negative) Urine Nitrite Negative (Negative) Ur Leukocyte Esterase Negative (Negative) Urine RBC 0-2 (0-2) /HPF Urine WBC 0-5 (0-5) /HPF Ur Squamous Epith Cells 3-5 (0-2) /HPF Urine Bacteria Trace (None Seen) Hyaline Casts 0-2 (0-2) /LPF Urine Test (NEGATIVE) Blood Type 02/03/23 02/03/23 Range/Units 10:03 10:03 WBC (4.8-10.8) X10*3/uL RBC (4.20-5.50) X10*6/uL Hgb (12.0-16.0) g/dl Hct (37.0-47.0) % MCV (80.0-98.0) fL MCH (27.0-33.0) pg MCHC (31.0-35.0) g/dl RDW (11.0-16.0) % Plt Count (160-400) X10*3/uL MPV (9.4-12.3) fL Immature Gran % (Auto) (0.0-0.4) % Neut % (Auto) (45-73) % Lymph % (Auto) (20-40) % Ogle % (Auto) (2-11) % Eos % (Auto) (0-4) % Baso % (Auto) (0-2) % Lymph # (Auto) (1.2-4.9) X10*3/uL Ogle # (Auto) (0.1-1.2) X10*3/uL Eos # (Auto) (0.0-0.4) X10*3/uL Baso # (Auto) (0.0-0.2) X10*3/uL Abs Immat Gran (auto) (0.00-0.03) X10*3/uL Absolute Neuts (auto) (2.0-8.3) x10*3/uL Absolute Nucleated RBC (0.0-0.012) X10*3/uL Nucleated RBC % (auto) (0.0-0.2) /100WBC Sodium (135-145) mmol/L Potassium (3.3-5.1) mmol/L Chloride (96-108) mmol/L Carbon Dioxide (22-29) mmol/L Anion Gap (12-20) BUN (9-16) mg/dL Creatinine (0.5-1.4) mg/dL Estim Creat Clear Calc Estimated GFR Random Glucose (60-115) mg/dL Calcium (8.4-10.2) mg/dL Magnesium (1.6-2.6) mg/dL Total Bilirubin (0.0-1.0) mg/dL Direct Bilirubin (0.0-0.5) mg/dL AST (5-31) U/L ALT (0-31) U/L Alkaline Phosphatase (39-117) U/L Total Protein (6.5-8.0) g/dL Albumin (3.5-5.0) g/dL Beta HCG, Quant mIU/mL Urine Color Urine Appearance Urine pH (5.0-9.0) Ur Specific [place] (1.005-1.025) Urine Protein (Neg-Trace) mg/dL Urine Glucose (UA) (Negative) mg/dL Urine Ketones (Negative) mg/dL Urine Blood (Negative) Urine Nitrite (Negative) Ur Leukocyte Esterase (Negative) Urine RBC (0-2) /HPF Urine WBC (0-5) /HPF Ur Squamous Epith Cells (0-2) /HPF Urine Bacteria (None Seen) Hyaline Casts (0-2) /LPF Urine Test POSITIVE H (NEGATIVE) Blood Type A Positive Radiology Impression Discussion of test interpretation with radiology: I have reviewed the radiologist's reading. Radiologist Impression: EXAMINATION: US FIRST TRIMESTER CLINICAL INFORMATION: Vaginal bleeding LMP: Unknown Beta-hCG: Positive test. COMPARISON: None available. TECHNIQUE: Transabdominal imaging was performed. FINDINGS:? UTERUS AND INTRAUTERINE GESTATIONAL SAC: There is a single intrauterine gestational sac. CROWN-RUMP LENGTH (CRL) : 0.2 cm, estimated age 5 weeks and 6 days, estimated date of confinement is 09/30/2023 YOLK SAC: Not found HEART MOTION: 109 BPM. SUBCHORIONIC HEMORRHAGE: None OVARIES: Right: Normal Left: Normal FREE FLUID: None OTHER FINDINGS: None US/US OB <= 14 weeks fetus IMPRESSION: 1. Single live intrauterine . ? 2. Estimated age 5 weeks and 6 days.. Dictated By: Mina Horta MD External Record Review External record reviewed: Inpatient record, Office record, Outpatient record, Prior outpatient labs, Prior outpatient radiology, Primary care record and Outside ED record Discharge Plan Discharge Clinical Impression: Vaginal bleeding, Patient Disposition: Home, Self-Care Instructions: (ED) Additional Instructions: Your ultrasounds a single live intrauterine , estimated age 5 weeks and 6 days. Estimated due date 09/30/2023. BetaHCG 63,176 today. Please call your OBGYN today in regards this visit. If any new or worsening symptoms occur please return for re-evaluation. Prescriptions: No Action acetaminophen 500 mg tablet 500 mg PO Q6H PRN (Reason: pain) Qty: 20 0RF sumatriptan succinate 50 mg tablet See Rx Instructions .ROUTE .COMPLEX Qty: 7 0RF Rx Instructions: take 1 tab at onset of headache; if no relief may repeat 1 tab after at least 2 hrs; max = 4 tabs/24 hr amoxicillin-pot clavulanate 875-125 mg tablet 1 tab PO BID Qty: 20 0RF sulfamethoxazole-trimethoprim [Bactrim DS] 800-160 mg tablet 1 tab PO BID Qty: 20 0RF benzonatate 100 mg Capsule 200 mg PO TID 5 Days Qty: 30 0RF prednisone 20 mg tablet 40 mg PO DAILY Qty: 8 0RF albuterol sulfate 90 mcg/actuation HFA aerosol inhaler 2 puff inhalation Q6H PRN (Reason: shortness of breath or wheezing) Qty: 8.5 0RF prednisone 20 mg tablet 40 mg PO DAILY Qty: 10 0RF fluticasone propionate [24 Hour Allergy Relief] 50 mcg/actuation spray,suspen sarah 1 spray intranasal BID Qty: 16 0RF Rx Instructions: administer into each nostril hydrocodone-homatropine [Hycodan] 5-1.5 mg/5 mL (5 mL) syrup 5 ml PO Q6H PRN (Reason: cough) Qty: 60 0RF Rx Instructions: Partial Fill upon patient request. azithromycin [Zithromax Z-Walter] 250 mg tablet See Rx Instructions .ROUTE .COMPLEX Qty: 6 0RF Rx Instructions: take 500 mg today (day 1), then 250 mg for 4 days (days 2-5) Interventions: ED Discharge Assessment Last Done: 02/03/23 13:14 Discharge Date/Time: 02/03/23 13:14
[2023-02-03 10:08] LABS: MANUAL DIFF FLAG NO
[2023-02-03 10:09] LABS: Basophils Percent Auto 0.4 % (0-2); Eosinophils Absolute Auto 0.6 X10*3/uL (0.0-0.4); Eosinophils Percent Auto 5.6 % (0-4); Hematocrit 37.7 % (37.0-47.0); Hemoglobin 12.3 g/dl (12.0-16.0); Imm Gran Abs Auto 0.03 X10*3/uL (0.00-0.03); Imm Gran Pct Auto 0.3 % (0.0-0.4); Lymphocytes Absolute Auto 2.5 X10*3/uL (1.2-4.9); Lymphocytes Percent Auto 24.3 % (20-40); Mean Corpuscular HGB Conc 32.6 g/dl (31.0-35.0); Mean Corpuscular Hemoglobin 29.8 pg (27.0-33.0); Mean Corpuscular Volume 91.3 fL (80.0-98.0); Mean Platelet Volume 9.6 fL (9.4-12.3); Monocytes Absolute Auto 0.7 X10*3/uL (0.1-1.2); Neutrophils Absolute Auto 6.5 x10*3/uL (2.0-8.3); Neutrophils Percent Auto 62.4 % (45-73); Platelet Count 343 X10*3/uL (160-400); Red Blood Count 4.13 X10*6/uL (4.20-5.50); Red Cell Distribution Width 13.7 % (11.0-16.0); White Blood Count 10.4 X10*3/uL (4.8-10.8)
[2023-02-03 10:12] LABS: UPreg QC Valid YES
[2023-02-03 10:13] LABS: Appearance Urine Clear; Color Urine Yellow; Glucose Urine UA Negative (Negative); Leukocyte Esterase Urine Negative (Negative); Nitrite Urine Negative (Negative); PH 5.5 (5.0-9.0); Specific Gravity - Urine 1.025 (1.005-1.025); UMIC TRIGGER UACC YES; Urine Blood Moderate (2+) (Negative); Urine Ketones Negative (Negative); Urine Protein Negative (Neg-Trace)
[2023-02-03 10:17] LABS: Urine Pregnancy POSITIVE (NEGATIVE)
[2023-02-03 10:25] LABS: Bacteria Urine Trace (None Seen); Hyaline Casts Urine 0-2 /LPF (0-2); RBC Urine 0-2 /HPF (0-2); WBC Urine 0-5 /HPF (0-5)
[2023-02-03 10:58] LABS: Alanine Aminotransferase 14 U/L (0-31); Albumin Level 4.2 g/dL (3.5-5.0); Alkaline Phosphatase 57 U/L (39-117); Anion Gap 9 (12-20); Aspartate Amino Transferase 15 U/L (5-31); Bilirubin Direct 0.2 mg/dL (0.0-0.5); Bilirubin Total 0.4 mg/dL (0.0-1.0); Blood Urea Nitrogen 8 mg/dL (9-16); Calcium 9.1 mg/dL (8.4-10.2); Carbon Dioxide 25 mmol/L (22-29); Chloride 107 mmol/L (96-108); Creatinine Clr Calc Pharmacy 118.6; Estimated Glomerular Filt Rate > 60; Glucose Random 85 mg/dL (60-115); Magnesium 2.1 mg/dL (1.6-2.6); Potassium 4.3 mmol/L (3.3-5.1); Sodium 137 mmol/L (135-145)
[2023-02-03 11:16] VITALS: BP 109/64; PULSE 70; RESP 18; TEMP 36.7; O2SAT 100
== END 2023-02-03 13:14 | disposition home or self-care (01) ==
PROVIDERS: Physician Assistant Medical; Emergency Provider Emergency Medicine; PCP Specialist
DX: O20.9 Hemorrhage in early pregnancy, unspecified (principal); Z3A.01 Less than 8 weeks gestation of pregnancy; Z79.899 Other long term (current) drug therapy
CPT/HCPCS: 36415; 76801; 80048; 80076; 81001; 81025; 83735; 84702; 85025; 86900; 86901; 99284

== ENCOUNTER 2023-06-03 22:18 | Emergency (ER) | payer OTHER, SELFPAY ==
[2023-06-03 22:27] VITALS: BP 129/77; PULSE 114; RESP 18; TEMP 37.5; O2SAT 98; BMI 30.7
[2023-06-04 00:28] LABS: Influenza A PCR NEGATIVE (Negative); Influenza B PCR NEGATIVE (Negative); Resp Syncy Virus RNA Qual PCR NEGATIVE (Negative); SARS COV2 PCR INHOUSE NEGATIVE (Negative)
[2023-06-04 00:48] VITALS: BP 118/71; PULSE 121; RESP 20; TEMP 37.6; O2SAT 98
--- NOTE | 2023-06-04 01:09 | ED.GENADULT ---
HPI - General Adult General Chief complaint: Upper Respiratory Symptoms Stated complaint: Vomiting/Headache/5mos preg Time Seen by Provider: 06/04/23 01:02 Source: patient Mode of arrival: ambulatory Limitations: no limitations History of Present Illness HPI narrative: 23-year-old female 5 months with nonsignificant care presented today with headache that started 2 days ago described as severe headache, then next day all day patient been having nausea and vomiting, no abdominal pain, no vaginal discharge, no vaginal bleeding, no sick contacts, no exposures to bad foods, no recent travel. No fever, no chills, no CP, no SOB. Patient Luzma and her had hyperemesis gravidarum. Patient had a history of intermittent headache in the past but no diagnosis of migraine, no family history of young or cerebral aneurysm or intracranial bleed. Related Data Previous Rx's Medication Instructions Recorded albuterol sulfate 90 mcg/actuation 2 puff inhalation Q6H PRN 08/31/21 aerosol inhaler shortness of breath or wheezing #8.5 grams benzonatate 100 mg capsule 200 mg PO TID 5 days #30 caps 08/31/21 prednisone 20 mg tablet 40 mg PO DAILY #8 tabs 08/31/21 azithromycin 250 mg tablet See Rx Instructions PO .COMPLEX #6 06/29/22 (Zithromax Z-Walter) tabs fluticasone propionate 50 1 spray intranasal BID #16 grams 06/29/22 mcg/actuation nasal spray,suspension (24 Hour Allergy Relief) hydrocodone-homatropine 5 mg-1.5 5 ml PO Q6H PRN cough #60 mL 06/29/22 mg/5 mL (5 mL) oral syrup (Hycodan) prednisone 20 mg tablet 40 mg PO DAILY #10 tabs 06/29/22 acetaminophen 500 mg tablet 500 mg PO Q6H PRN pain #20 tabs 09/09/22 sumatriptan succinate 50 mg tablet See Rx Instructions PO .COMPLEX #7 09/09/22 tabs amoxicillin 875 mg-potassium 1 tab PO BID #20 tabs 10/13/22 clavulanate 125 mg tablet sulfamethoxazole 800 1 tab PO BID #20 tabs 10/13/22 mg-trimethoprim 160 mg tablet (Bactrim DS) Allergies Allergy/AdvReac Type Severity Reaction Status Date / Time cucumber [CUCUMBER] Allergy Unknown RASH Verified 02/03/23 09:08 peanut [PEANUT] Allergy Unknown RASH Verified 02/03/23 09:08 Review of Systems Review of Systems: All other systems are reviewed and are negative Constitutional: Reports as per HPI and Reports no additional constitutional complaints Eyes: Reports as per HPI and Reports no additional eye complaints Reports system reviewed and no additional complaints, except as documented Cardiovascular: Reports as per HPI and Reports no additional cardiovascular complaints Respiratory: Reports as per HPI and Reports no additional respiratory complaints Gastrointestinal: Reports as per HPI and Reports no additional gastrointestinal complaints Genitourinary: Reports no additional female genitourinary complaints Musculoskeletal: Reports no additional musculoskeletal complaints Skin/Breast: Reports system reviewed and no additional complaints, except as docu Psychiatric: Reports no additional psychiatric complaints Endocrine: Reports no additional endocrine complaints Hematologic/Lymphatic: Reports no additional hematologic/lymphatic complaints Allergic/Immunologic: Reports no additional allergic/immunologic complaints Reports system reviewed and no additional complaints, except as documented and Reports Abnormal speech present [facility] Past Medical History Medical History Asthma Surgical History No pertinent past surgical history Family History Family History Other No pertinent family history Social History Social History Household Members: None Housing: Homeless Do you presently have visiting nurse or other home services: No Alcohol intake: never Patient Tobacco Use Status: Never used Tobacco Second Hand Smoke Exposure: No Substance Use Type: Marijuana Advance Directives: No Advance Directives Information Provided: No service: No Current occupational status: unemployed Physical Exam ED Vital Signs: Vital Signs - 24 hr 06/03/23 22:27 06/04/23 00:48 06/04/23 04:00 Temperature 99.5 F 99.7 F 97.8 F Pulse Rate 114 H 121 H 92 Respiratory Rate 18 20 19 Blood Pressure 129/77 118/71 102/73 Pulse Oximetry 98 98 98 Oxygen Delivery Method Room Air Room Air Room Air BMI result Body Mass Index 30.7 Vital signs have been reviewed as appeared to be correct. Blood pressure normal. Tachycardia. Respiration rate normal. Temperature normal. Oxygen saturation normal. Appearance: Alert. Oriented X3. No acute distress. Head: Normal external exam. Normocephalic. Atraumatic. No Huynh signs noted. No raccoon eyes noted Eyes: PERRLA. EOMI. Conjunctiva and sclera normal. Eyelids normal. ENT: TM's Normal. Pharynx normal. Uvula midline. Moist mucous membranes. No trismus noted. No drooling noted. No muffled voice noted. Neck: Normal inspection. Neck supple. FROM. No adenopathy. Thyroid Normal. No meningeal signs. No neck mass noted. CVS: Normal heart rate and rhythm. Heart sound normal. No murmurs noted. Pulses normal throughout. Respiratory: No respiratory distress. Painless inspiration. Breath sounds normal. No wheezes/rales/rhonchi noted. Chest nontender. No accessory muscle usage noted or decreased air movement noted. Abdomen: Soft and nontender. Bowel sounds normal in all 4 quadrants. No distention noted. No organomegaly noted. No visible injury noted. Back: No CVA tenderness. Full range of motion noted. Skin: Skin warm and dry. Normal skin color. Normal skin turgor. No rashes/lesions/lacerations noted. Extremities: No lower extremity edema. Extremities exhibit normal range of motion. Extremities nontender. Neuro: Oriented X 3. Cranial nerve exam: II-XII are grossly intact No motor deficit. No sensory deficit. Reflexes normal. Course Course Course Narrative: 23-year-old female 5 months with no care for complication came in for headache and vomiting, patient now feels better with IV hydration and Zofran, able to tolerate p.o. intake, with improvement of the headache. Labs revealing leukocytosis which is reactionary to , vomiting, and stress. Medications Administered Discontinued Medications Generic Name Dose Route Start Last Admin Trade Name Freq PRN Reason Stop Dose Admin Acetaminophen 650 mg 06/04/23 01:07 06/04/23 01:23 Acetaminophen 325 Mg Tablet PO 06/04/23 01:08 650 mg ONCE ONE Administration Sodium Chloride 1,000 mls @ 999 mls/hr 06/04/23 01:07 06/04/23 02:30 Ns IV 06/04/23 02:07 Infused .Q1H1M ONE Infusion Ondansetron HCl 4 mg 06/04/23 01:07 06/04/23 01:23 Ondansetron Hcl 4 Mg/2 Ml Vial IVPUSH 06/04/23 01:08 4 mg ONCE ONE Administration Medical Decision Making Differential Diagnosis Differential Diagnoses: The differential diagnosis associated with the presentation includes (Gastritis, headache, electrolyte disturbance, dehydration, acute renal injury, severe anemia.) Admission/Observation Consideration of admission/observation: Escalation of care including admission/observation considered Lab Data MDM Lab Attestation statement: I reviewed the patient's lab results. 06/04/23 01:20 06/04/23 01:20 Labs: Lab Results 06/03/23 06/04/23 06/04/23 Range/Units 23:40 01:20 01:20 WBC 18.2 H (4.8-10.8) X10*3/uL RBC 3.36 L (4.20-5.50) X10*6/uL Hgb 10.2 L (12.0-16.0) g/dl Hct 29.9 L D (37.0-47.0) % MCV 89.0 (80.0-98.0) fL MCH 30.4 (27.0-33.0) pg MCHC 34.1 (31.0-35.0) g/dl RDW 12.8 (11.0-16.0) % Plt Count 322 (160-400) X10*3/uL MPV 9.7 (9.4-12.3) fL Immature Gran % (Auto) 0.4 (0.0-0.4) % Neut % (Auto) 88.8 H (45-73) % Lymph % (Auto) 6.0 L (20-40) % [place] % (Auto) 4.5 (2-11) % Eos % (Auto) 0.2 (0-4) % Baso % (Auto) 0.1 (0-2) % Lymph # (Auto) 1.1 L (1.2-4.9) X10*3/uL [place] # (Auto) 0.8 (0.1-1.2) X10*3/uL Eos # (Auto) 0.0 (0.0-0.4) X10*3/uL Baso # (Auto) 0.0 (0.0-0.2) X10*3/uL Abs Immat Gran (auto) 0.07 H (0.00-0.03) X10*3/uL Absolute Neuts (auto) 16.2 H (2.0-8.3) x10*3/uL Absolute Nucleated RBC 0.000 (0.0-0.012) X10*3/uL Nucleated RBC % (auto) 0.0 (0.0-0.2) /100WBC Sodium 133 L (135-145) mmol/L Potassium 4.1 (3.3-5.1) mmol/L Chloride 107 (96-108) mmol/L Carbon Dioxide 17 L (22-29) mmol/L Anion Gap 13 (12-20) BUN 6 L (9-16) mg/dL Creatinine 0.66 (0.5-1.4) mg/dL Estim Creat Clear Calc 131.7 Estimated GFR > 60 Random Glucose 90 (60-115) mg/dL Calcium 8.9 (8.4-10.2) mg/dL Total Bilirubin 0.3 (0.0-1.0) mg/dL Direct Bilirubin 0.1 (0.0-0.5) mg/dL AST 22 (5-31) U/L ALT 13 (0-31) U/L Alkaline Phosphatase 54 (39-117) U/L Total Protein 7.0 (6.5-8.0) g/dL Albumin 3.6 (3.5-5.0) g/dL Lipase 78 (8-78) U/L Urine Color Urine Appearance Urine pH (5.0-9.0) Ur Specific [place] (1.005-1.025) Urine Protein (Neg-Trace) mg/dL Urine Glucose (UA) (Negative) mg/dL Urine Ketones (Negative) mg/dL Urine Blood (Negative) Urine Nitrite (Negative) Ur Leukocyte Esterase (Negative) Influenza Type A (PCR) NEGATIVE (Negative) Influenza Type B (PCR) NEGATIVE (Negative) RSV RNA Qual (PCR) NEGATIVE (Negative) SARS-CoV-2 RNA (RT-PCR) NEGATIVE (Negative) 06/04/23 Range/Units 01:47 WBC (4.8-10.8) X10*3/uL RBC (4.20-5.50) X10*6/uL Hgb (12.0-16.0) g/dl Hct (37.0-47.0) % MCV (80.0-98.0) fL MCH (27.0-33.0) pg MCHC (31.0-35.0) g/dl RDW (11.0-16.0) % Plt Count (160-400) X10*3/uL MPV (9.4-12.3) fL Immature Gran % (Auto) (0.0-0.4) % Neut % (Auto) (45-73) % Lymph % (Auto) (20-40) % [place] % (Auto) (2-11) % Eos % (Auto) (0-4) % Baso % (Auto) (0-2) % Lymph # (Auto) (1.2-4.9) X10*3/uL [place] # (Auto) (0.1-1.2) X10*3/uL Eos # (Auto) (0.0-0.4) X10*3/uL Baso # (Auto) (0.0-0.2) X10*3/uL Abs Immat Gran (auto) (0.00-0.03) X10*3/uL Absolute Neuts (auto) (2.0-8.3) x10*3/uL Absolute Nucleated RBC (0.0-0.012) X10*3/uL Nucleated RBC % (auto) (0.0-0.2) /100WBC Sodium (135-145) mmol/L Potassium (3.3-5.1) mmol/L Chloride (96-108) mmol/L Carbon Dioxide (22-29) mmol/L Anion Gap (12-20) BUN (9-16) mg/dL Creatinine (0.5-1.4) mg/dL Estim Creat Clear Calc Estimated GFR Random Glucose (60-115) mg/dL Calcium (8.4-10.2) mg/dL Total Bilirubin (0.0-1.0) mg/dL Direct Bilirubin (0.0-0.5) mg/dL AST (5-31) U/L ALT (0-31) U/L Alkaline Phosphatase (39-117) U/L Total Protein (6.5-8.0) g/dL Albumin (3.5-5.0) g/dL Lipase (8-78) U/L Urine Color Yellow Urine Appearance Clear Urine pH 6.0 (5.0-9.0) Ur Specific [place] 1.020 (1.005-1.025) Urine Protein Trace (Neg-Trace) mg/dL Urine Glucose (UA) Negative (Negative) mg/dL Urine Ketones 80 (Negative) mg/dL Urine Blood Negative (Negative) Urine Nitrite Negative (Negative) Ur Leukocyte Esterase Negative (Negative) Influenza Type A (PCR) (Negative) Influenza Type B (PCR) (Negative) RSV RNA Qual (PCR) (Negative) SARS-CoV-2 RNA (RT-PCR) (Negative) Chronic Conditions Patient?s care impacted by: Other (Five months .) Discharge Plan Discharge Clinical Impression: Vomiting Patient Disposition: Home, Self-Care Instructions: Nausea and Vomiting in (ED) Prescriptions: No Action acetaminophen 500 mg tablet 500 mg PO Q6H PRN (Reason: pain) Qty: 20 0RF sumatriptan succinate 50 mg tablet See Rx Instructions .ROUTE .COMPLEX Qty: 7 0RF Rx Instructions: take 1 tab at onset of headache; if no relief may repeat 1 tab after at least 2 hrs; max = 4 tabs/24 hr amoxicillin-pot clavulanate 875-125 mg tablet 1 tab PO BID Qty: 20 0RF sulfamethoxazole-trimethoprim [Bactrim DS] 800-160 mg tablet 1 tab PO BID Qty: 20 0RF benzonatate 100 mg Capsule 200 mg PO TID 5 Days Qty: 30 0RF prednisone 20 mg tablet 40 mg PO DAILY Qty: 8 0RF albuterol sulfate 90 mcg/actuation HFA aerosol inhaler 2 puff inhalation Q6H PRN (Reason: shortness of breath or wheezing) Qty: 8.5 0RF prednisone 20 mg tablet 40 mg PO DAILY Qty: 10 0RF fluticasone propionate [24 Hour Allergy Relief] 50 mcg/actuation spray,suspension 1 spray intranasal BID Qty: 16 0RF Rx Instructions: administer into each nostril hydrocodone-homatropine [Hycodan] 5-1.5 mg/5 mL (5 mL) syrup 5 ml PO Q6H PRN (Reason: cough) Qty: 60 0RF Rx Instructions: Partial Fill upon patient request. azithromycin [Zithromax Z-Walter] 250 mg tablet See Rx Instructions .ROUTE .COMPLEX Qty: 6 0RF Rx Instructions: take 500 mg today (day 1), then 250 mg for 4 days (days 2-5) Referrals: Jackie Garner MD [Primary Care Provider] -
--- NOTE | 2023-06-04 01:13 | ECG_ITS ---
Test Reason : TACHY Blood Pressure : / mmHG Vent. Rate : 106 BPM Atrial Rate : 106 BPM P-R Int : 130 ms QRS Dur : 082 ms QT Int : 326 ms P-R-T Axes : 066 066 028 degrees QTc Int : 433 ms Sinus tachycardia Otherwise normal ECG When compared with ECG of 30-AUG-2021 00:06, Nonspecific T wave abnormality no longer evident in Lateral leads Referred By: Yusuf Pappas Electronically Signed By:ELLA AMAYA
[2023-06-04] MEDS: Acetaminophen 325 MG TABLET 650 MG PO (01:23)
[2023-06-04] MEDS: ondansetron HCL 4 MG/2 ML VIAL IVPUSH (01:23)
[2023-06-04] MEDS: 0.9 % Sodium Chloride 1,000 ML 999 ML IV (01:23)
[2023-06-04 01:27] LABS: Basophils Percent Auto 0.1 % (0-2); Eosinophils Percent Auto 0.2 % (0-4); Hematocrit 29.9 % (37.0-47.0); Hemoglobin 10.2 g/dl (12.0-16.0); Imm Gran Abs Auto 0.07 X10*3/uL (0.00-0.03); Imm Gran Pct Auto 0.4 % (0.0-0.4); Lymphocytes Absolute Auto 1.1 X10*3/uL (1.2-4.9); MANUAL DIFF FLAG NO; Mean Corpuscular HGB Conc 34.1 g/dl (31.0-35.0); Mean Corpuscular Hemoglobin 30.4 pg (27.0-33.0); Mean Platelet Volume 9.7 fL (9.4-12.3); Monocytes Absolute Auto 0.8 X10*3/uL (0.1-1.2); Monocytes Percent Auto 4.5 % (2-11); Neutrophils Absolute Auto 16.2 x10*3/uL (2.0-8.3); Neutrophils Percent Auto 88.8 % (45-73); Platelet Count 322 X10*3/uL (160-400); Red Blood Count 3.36 X10*6/uL (4.20-5.50); Red Cell Distribution Width 12.8 % (11.0-16.0); White Blood Count 18.2 X10*3/uL (4.8-10.8)
[2023-06-04 01:44] LABS: Alanine Aminotransferase 13 U/L (0-31); Albumin Level 3.6 g/dL (3.5-5.0); Alkaline Phosphatase 54 U/L (39-117); Anion Gap 13 (12-20); Aspartate Amino Transferase 22 U/L (5-31); Bilirubin Direct 0.1 mg/dL (0.0-0.5); Bilirubin Total 0.3 mg/dL (0.0-1.0); Blood Urea Nitrogen 6 mg/dL (9-16); Calcium 8.9 mg/dL (8.4-10.2); Carbon Dioxide 17 mmol/L (22-29); Chloride 107 mmol/L (96-108); Creatinine Clr Calc Pharmacy 131.7; Estimated Glomerular Filt Rate > 60; Glucose Random 90 mg/dL (60-115); Lipase 78 U/L (8-78); Potassium 4.1 mmol/L (3.3-5.1); Sodium 133 mmol/L (135-145)
[2023-06-04 01:53] LABS: Appearance Urine Clear; Color Urine Yellow; Glucose Urine UA Negative (Negative); Leukocyte Esterase Urine Negative (Negative); Nitrite Urine Negative (Negative); Urine Blood Negative (Negative); Urine Ketones 80 mg/dL (Negative); Urine Protein Trace mg/dL (Neg-Trace)
[2023-06-04 04:00] VITALS: BP 102/73; PULSE 92; RESP 19; TEMP 36.6; O2SAT 98
== END 2023-06-04 05:04 | disposition home or self-care (01) ==
PROVIDERS: Emergency Provider Emergency Medicine; PCP Specialist
DX: O21.9 Vomiting of pregnancy, unspecified (principal); Z3A.00 Weeks of gestation of pregnancy not specified; Z20.822 Contact with and (suspected) exposure to COVID-19; Z20.828 Contact with and (suspected) exposure to other viral communicable diseases
CPT/HCPCS: 0241U; 36415; 80048; 80076; 81003; 83690; 85025; 93005; 96361; 96374; 99284; J2405

== ENCOUNTER 2023-07-24 16:37 | Emergency (ER) | payer OTHER, SELFPAY ==
--- NOTE | 2023-07-24 17:08 | ED.GENADULT ---
HPI - General Adult General Chief complaint: Fever Stated complaint: fever, 3o wks Time Seen by Provider: 07/24/23 18:22 Source: patient Mode of arrival: ambulatory Limitations: no limitations History of Present Illness HPI narrative: Patient is a 23-year-old female presenting to the emergency department with complaint of sore throat since yesterday, fever to 102 at home yesterday. States sore throat has improved today. She denies any ear pain, cough, congestion. She denies any chest pain, palpitations or shortness of breath. Denies any abdominal pain, nausea, vomiting, diarrhea. Denies any dysuria, urinary frequency, or other urinary symptoms. Reports normal movement. Did not take any yaer-[id number] medications prior to arrival today. MD complaint: Sore throat, fever Onset (ago): day(s) Severity: mild Quality: burning Associated symptoms: fever/chills Treatments prior to arrival: none Related Data Previous Rx's Medication Instructions Recorded albuterol sulfate 90 mcg/actuation 2 puff inhalation Q6H PRN 08/31/21 aerosol inhaler shortness of breath or wheezing #8.5 grams benzonatate 100 mg capsule 200 mg (2 x 100 mg) PO TID 5 days 08/31/21 #30 caps prednisone 20 mg tablet 40 mg (2 x 20 mg) PO DAILY #8 tabs 08/31/21 azithromycin 250 mg tablet See Rx Instructions PO .COMPLEX #6 06/29/22 (Zithromax Z-Walter) tabs fluticasone propionate 50 1 spray intranasal BID #16 grams 06/29/22 mcg/actuation nasal spray,suspension (24 Hour Allergy Relief) hydrocodone-homatropine 5 mg-1.5 5 ml PO Q6H PRN cough #60 mL 06/29/22 mg/5 mL (5 mL) oral syrup (Hycodan) prednisone 20 mg tablet 40 mg (2 x 20 mg) PO DAILY #10 tabs 06/29/22 acetaminophen 500 mg tablet 500 mg PO Q6H PRN pain #20 tabs 09/09/22 sumatriptan succinate 50 mg tablet See Rx Instructions PO .COMPLEX #7 09/09/22 tabs amoxicillin 875 mg-potassium 1 tab PO BID #20 tabs 10/13/22 clavulanate 125 mg tablet sulfamethoxazole 800 1 tab PO BID #20 tabs 10/13/22 mg-trimethoprim 160 mg tablet (Bactrim DS) cephalexin 500 mg capsule 500 mg PO TID 5 days #15 caps 07/24/23 Allergies Allergy/AdvReac Type Severity Reaction Status Date / Time cucumber [CUCUMBER] Allergy Unknown RASH Verified 07/24/23 17:13 peanut [PEANUT] Allergy Unknown RASH Verified 07/24/23 17:13 Review of Systems Review of Systems: As per HPI. Yes all other systems are reviewed and are negative Constitutional: Constitutional: Reports as per HPI [facility] Past Medical History Medical History Asthma Surgical History No pertinent past surgical history Family History Family History Other No pertinent family history Social History Social History Household Members: None Housing: Homeless Do you presently have visiting nurse or other home services: No Alcohol intake: never Patient Tobacco Use Status: Never used Tobacco Second Hand Smoke Exposure: No Substance Use Type: Marijuana Advance Directives: No Advance Directives Information Provided: No service: No Current occupational status: unemployed Physical Exam ED Vital Signs: Vital Signs - 24 hr 07/24/23 17:09 07/24/23 19:31 Temperature 98.3 F 98.2 F Pulse Rate 120 H 98 Respiratory Rate 20 20 Blood Pressure 133/73 122/75 Pulse Oximetry 99 98 Oxygen Delivery Method Room Air Room Air BMI result Body Mass Index 30.6 Vital signs have been reviewed and appear to be correct. Blood pressure normal. Heart rate tachycardic. Respiratory rate normal. Temperature normal. Oxygen saturation normal. Const General: cooperative, healthy appearing and no acute distress Orientation/consciousness: oriented to person, oriented to place, oriented to time and patient oriented x3 Limitations: no limitations HENMT Head: Yes normocephalic and Yes atraumatic Ears: external ears normal, TM's normal bilaterally and EAC's normal General nose exam: Normal external nose present Face and sinus: Yes face symmetric Mouth: oropharynx normal and moist mucous membranes Throat: Yes tonsils normal, Yes uvula midline, Yes posterior oropharynx abnormal (Erythema without edema or exudate) and No uvular edema Eyes Pupils: Equal, round and reactive pupils present Neck Neck: Yes normal visual inspection and Yes supple Lymphatic: no lymphadenopathy noted Resp Effort & Inspection: normal respiratory effort and able to speak in complete sentences Auscultation: clear to auscultation bilaterally Cardio Rate: regular rate Rhythm: regular rhythm Heart sounds: S1 normal heart sound present and S2 normal heart sound present GI Inspection: Yes other (gravid) Palpation (GI): nontender Auscultation: normoactive bowel sounds General: Yes no CVA tenderness Back/Spine/Pelvis Back: no CVA tenderness Skin General skin exam: elasticity normal and turgor normal Neuro General: oriented to person, oriented to place, oriented to time, patient oriented x3, moves all extremities, no focal motor deficits and CN's II-XI intact bilaterally Cranial nerves: Yes Equal, round and reactive pupils present Cognition (Neuro): normal cognition Extrem General: Yes full ROM, Yes no pedal edema and Yes no calf tenderness Psych Mental Status: mental status grossly normal Affect: normal affect Thought process: Normal thought process present Course Course Course Narrative: RME- 23-year-old female was approximately 30 weeks 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 She reports having a sore throat yesterday. Her temperature was high as 102. Plan for viral swab, UA, strep throat swab. Medical Decision Making Medical Decision Making [facility] Narrative: Patient is a 23-year-old female presenting to the emergency department with complaint of sore throat since yesterday, fever to 102 at home yesterday. On exam patient is awake, A+Ox3, tachycardic likely related to , VS otherwise WNL, afebrile, normal neurological exam without focal deficits, physical exam findings as above. Given reported symptoms and physical exam findings, initial differential includes strep pharyngitis, COVID, influenza, other viral illness. Less likely UTI but given that patient reports fever yesterday and is currently 30 weeks , will check UA. Swabs for strep, flu, COVID all negative. UA positive for 1+ leukocytes, 1+ bacteria, 0-5 wbc's. Given that patient is will treat for UTI this time. Feels sore throat likely related to viral pharyngitis. Advised patient to utilize Tylenol for discomfort and fever. Instructed patient to follow-up with OBGYN. Return precautions discussed at bedside. Patient verbalized understanding of and agreement with plan. Differential Diagnosis Differential Diagnoses: The differential diagnosis associated with the presentation includes As per [facility]. Lab Data [facility] Lab Attestation statement: I reviewed the patient's lab results. As per [facility]. Labs: Lab Results 07/24/23 07/24/23 Range/Units 17:17 19:23 Urine Color Dark Yellow Urine Appearance Cloudy Urine pH 6.5 (5.0-9.0) Ur Specific [place] 1.020 (1.005-1.025) Urine Protein Trace (Neg-Trace) mg/dL Urine Glucose (UA) Negative (Negative) mg/dL Urine Ketones Trace (Negative) mg/dL Urine Blood Negative (Negative) Urine Nitrite Negative (Negative) Ur Leukocyte Esterase Small (1+) H (Negative) Urine RBC 0-2 (0-2) /HPF Urine WBC 0-5 (0-5) /HPF Ur Squamous Epith Cells >20 (0-2) /HPF Urine Bacteria 1+ (None Seen) Hyaline Casts 0-2 (0-2) /LPF COVID-19 (MAURY) Negative (Negative) COVID-19 Clin Com See Note Influenza Type A (PATRICK) Negative (Negative) Influenza Type B (PATRICK) Negative (Negative) Influenza A & B Note See Note S. pyogenes GrpA PATRICK Negative (Negative) External Record Review External record reviewed: Inpatient record, Office record and Outpatient record Prescription Management I considered prescription management with: Antibiotic Discharge Plan Discharge Clinical Impression: Urinary tract infection Patient Disposition: Home, Self-Care Instructions: Urinary Tract Infection in (ED) Additional Instructions: You have been evaluated in the emergency department today for a sore throat and fever which are likely related to a viral infection. Your swabs for strep, flu, and COVID were all negative. Your evaluation, including urinalysis, suggests that you have a urinary tract infection. Please take your prescribed antibiotics for the full course of medication as directed. Please follow-up with your primary care provider and inventory control coordinator within 2 days. Return to the emergency department if you experience fevers 100.4? F or greater, worsening or uncontrolled pain, vomiting, flank pain, or for any other concerning symptoms. Prescriptions: New cephalexin 500 mg capsule 500 mg PO TID 5 Days Qty: 15 0RF No Action acetaminophen 500 mg tablet 500 mg PO Q6H PRN (Reason: pain) Qty: 20 0RF sumatriptan succinate 50 mg tablet See Rx Instructions .ROUTE .COMPLEX Qty: 7 0RF Rx Instructions: take 1 tab at onset of headache; if no relief may repeat 1 tab after at least 2 hrs; max = 4 tabs/24 hr amoxicillin-pot clavulanate 875-125 mg tablet 1 tab PO BID Qty: 20 0RF sulfamethoxazole-trimethoprim [Bactrim DS] 800-160 mg tablet 1 tab PO BID Qty: 20 0RF benzonatate 100 mg Capsule 200 mg PO TID 5 Days Qty: 30 0RF prednisone 20 mg tablet 40 mg PO DAILY Qty: 8 0RF albuterol sulfate 90 mcg/actuation HFA aerosol inhaler 2 puff inhalation Q6H PRN (Reason: shortness of breath or wheezing) Qty: 8.5 0RF prednisone 20 mg tablet 40 mg PO DAILY Qty: 10 0RF fluticasone propionate [24 Hour Allergy Relief] 50 mcg/actuation spray,suspension 1 spray intranasal BID Qty: 16 0RF Rx Instructions: administer into each nostril hydrocodone-homatropine [Hycodan] 5-1.5 mg/5 mL (5 mL) syrup 5 ml PO Q6H PRN (Reason: cough) Qty: 60 0RF Rx Instructions: Partial Fill upon patient request. azithromycin [Zithromax Z-Walter] 250 mg tablet See Rx Instructions .ROUTE .COMPLEX Qty: 6 0RF Rx Instructions: take 500 mg today (day 1), then 250 mg for 4 days (days 2-5)
[2023-07-24 17:09] VITALS: BP 133/73; PULSE 120; RESP 20; TEMP 36.8; O2SAT 99; BMI 30.6
[2023-07-24 17:35] LABS: IDNOW Serial# 6674DD1D
[2023-07-24 17:36] LABS: Strep A Nucleic Acid Negative (Negative)
[2023-07-24 17:38] LABS: COVID-19 Test Negative (Negative); IDNOW Serial# BCCEAD1C
[2023-07-24 17:43] LABS: IDNOW Serial# 9DB6401D; Influenza A Negative (Negative); Influenza B2 Negative (Negative)
[2023-07-24 19:31] VITALS: BP 122/75; PULSE 98; RESP 20; TEMP 36.8; O2SAT 98
[2023-07-24 19:32] LABS: Appearance Urine Cloudy; Color Urine Dark Yellow; Glucose Urine UA Negative (Negative); Leukocyte Esterase Urine Small (1+) (Negative); Nitrite Urine Negative (Negative); PH 6.5 (5.0-9.0); UMIC TRIGGER UACC YES; Urine Blood Negative (Negative); Urine Ketones Trace mg/dL (Negative); Urine Protein Trace mg/dL (Neg-Trace)
[2023-07-24 19:48] LABS: Bacteria Urine 1+ (None Seen); Hyaline Casts Urine 0-2 /LPF (0-2); RBC Urine 0-2 /HPF (0-2); Squamous Epithelial Cell Urine >20 /HPF (0-2); UACC Culture Trigger YES; WBC Urine 0-5 /HPF (0-5)
== END 2023-07-24 20:18 | disposition home or self-care (01) ==
PROVIDERS: Physician Assistant; Emergency Provider Internal Medicine
DX: O23.43 Unspecified infection of urinary tract in pregnancy, third trimester (principal); N39.0 Urinary tract infection, site not specified; R50.9 Fever, unspecified; Z3A.30 30 weeks gestation of pregnancy; Z11.52 Encounter for screening for COVID-19; Z20.822 Contact with and (suspected) exposure to COVID-19; Z79.899 Other long term (current) drug therapy
CPT/HCPCS: 81001; 87086; 87502; 87635; 87651; 99283

== ENCOUNTER 2025-07-10 11:17 | Emergency (ER) | payer MEDICAID, SELFPAY ==
--- NOTE | ~2025-07-10 | XR_ITS ---
CLINICAL HISTORY: chest tightness 2 view chest x-ray. Comparison: None Findings: The lungs are adequately expanded. No focal consolidation. No effusion or pneumothorax. Cardiac and mediastinal contours are within normal limits. No acute osseous abnormality Impression: No acute process. This document has been electronically signed by: Joe Velarde MD on 07/10/2025 12:33:58
[2025-07-10 11:32] VITALS: BP 132/64; PULSE 84; RESP 14; TEMP 36.4; O2SAT 96; BMI 29.2
--- NOTE | 2025-07-10 11:32 | ED.GENADULT ---
HPI - General Adult General Chief complaint: Asthma Stated complaint: asthma,chest tightness Time Seen by Provider: 07/10/25 13:00 Source: patient Mode of arrival: ambulatory Limitations: no limitations History of Present Illness ED Provider: Arslan Mariee [facility] narrative: 25-year-old female history of asthma presents to the ED for 2 days. Patient states coughing , body aches, chills and subjective fevers. Patient denies any pleurisy, leg swelling, calf pain, coughing up blood, control use, recent long travel, recent surgery, chest pain, or history of PE. Related Data Previous Rx's ?Medication ?Instructions ?Recorded albuterol sulfate 90 mcg/actuation 2 puff inhalation Q6H PRN 08/31/21 aerosol inhaler shortness of breath or wheezing #8.5 grams benzonatate 100 mg capsule 200 mg (2 x 100 mg) PO TID 5 days 08/31/21 #30 caps prednisone 20 mg tablet 40 mg (2 x 20 mg) PO DAILY #8 tabs 08/31/21 azithromycin 250 mg tablet See Rx Instructions PO .COMPLEX #6 06/29/22 (Zithromax Z-Walter) tabs fluticasone propionate 50 1 spray intranasal BID #16 grams 06/29/22 mcg/actuation nasal spray,suspension (24 Hour Allergy Relief) hydrocodone-homatropine 5 mg-1.5 5 ml PO Q6H PRN cough #60 mL 06/29/22 mg/5 mL (5 mL) oral solution (Hycodan) prednisone 20 mg tablet 40 mg (2 x 20 mg) PO DAILY #10 tabs 06/29/22 acetaminophen 500 mg tablet 500 mg PO Q6H PRN pain #20 tabs 09/09/22 sumatriptan succinate 50 mg tablet See Rx Instructions PO .COMPLEX #7 09/09/22 tabs amoxicillin 875 mg-potassium 1 tab PO BID #20 tabs 10/13/22 clavulanate 125 mg tablet sulfamethoxazole 800 1 tab PO BID #20 tabs 10/13/22 mg-trimethoprim 160 mg tablet (Bactrim DS) cephalexin 500 mg capsule 500 mg PO TID 5 days #15 caps 07/24/23 azithromycin 250 mg tablet See Rx Instructions PO .COMPLEX #6 07/10/25 tabs benzonatate 200 mg capsule 200 mg PO TID PRN cough #15 caps 07/10/25 prednisone 20 mg tablet 40 mg (2 x 20 mg) PO DAILY 5 days 07/10/25 #10 tabs Allergies Allergy/AdvReac Type Severity Reaction Status Date / Time cucumber (CUCUMBER) Allergy Unknown RASH Verified 07/10/25 11:35 peanut (PEANUT) Allergy Unknown RASH Verified 07/10/25 11:35 Review of Systems Review of Systems: Coughing chest tightness wheezing Yes all other systems are reviewed and are negative [facility] Past Medical History Medical History Asthma Surgical History No pertinent past surgical history Family History Family History Other No pertinent family history Social History Social History Household Members: None Housing: Homeless Do you presently have visiting nurse or other home services: No Alcohol intake: never Patient Tobacco Use Status: Never used Tobacco Second Hand Smoke Exposure: No Substance Use Type: Marijuana Advance Directives: No Advance Directives Information Provided: No Do you have a plan to hurt others: No Plan service: No Current occupational status: unemployed Physical Exam ED Vital Signs: Vital Signs - 24 hr 07/10/25 11:32 07/10/25 13:05 Temperature 97.5 F Pulse Rate 84 92 Respiratory Rate 14 18 Blood Pressure 132/64 Pulse Oximetry 96 Oxygen Delivery Method Room Air BMI result Body Mass Index 29.2 Const General: cooperative, healthy appearing, comfortable, no acute distress, well developed, alert, awake and Physically active [facility] Head: Yes normal to inspection, Yes No palpable skull fracture present, Yes normocephalic and Yes atraumatic Throat: Yes posterior oropharynx normal, Yes tonsils normal and Yes uvula midline Eyes General: appearance normal, both eyes and all related structures Neck Neck: Yes normal visual inspection, Yes full ROM, Yes no lymphadenopathy, Yes no meningeal signs, Yes trachea midline, Yes supple, No anterior neck swelling and No tender Chest Chest palpation & inspection: normal inspection of the chest and normal palpation of entire chest wall Resp Effort & Inspection: normal respiratory effort and able to speak in complete sentences Auscultation: wheezes expiratory wheezes (mild) Cardio Jugular venous distension: no JVD Heart sounds: S1 normal heart sound present and S2 normal heart sound present GI Inspection: Yes normal to inspection Palpation (GI): Soft to palpation, not firm, nontender, no guarding and not rigid Neuro General: no meningeal signs Extrem Other: negative for swelling, pitting edema, or calf tenderness of lower extremiiteis. General: Yes normal to inspection, Yes full ROM and Yes capillary refill normal Psych Appearance: grossly normal, well kempt and not disheveled Course Course Course Narrative: Rapid medical examination performed in triage by Deborah Yuan PA-C. Patient is a 25 year old assigned female at presenting to the emergency department with chest tightness and a cough. Patient states she has had a cough and chest tightness over the last 2 days. Detailed physical exam and review of systems are deferred to the reeling operator. Imaging and swabs ordered. Patient placed back in the waiting room pending room availability and results. Medications Administered Discontinued Medications Generic Name Dose Route Start Last Admin Trade Name Freq PRN Reason Stop Dose Admin Albuterol Sulfate 2.5 mg/ 0 mg 07/10/25 13:04 07/10/25 13:10 Albuterol/Ipratropium 3 ml INHALE 07/10/25 13:05 5 dose ONCE ONE Administration Prednisone 40 mg 07/10/25 13:55 07/10/25 14:14 Prednisone 20 Mg Tablet PO 07/10/25 13:56 40 mg ONCE ONE Administration Medical Decision Making Medical Decision Making [facility] Narrative: 25-year-old female presents to the ED for shortness of breath coughing chest tightness wheezing. History physical exam indicate asthma bronchitis exacerbation. Swabs and xray Not suspecting PE, IL, CHF, Pericarditis, Myocarditits, or any other life threatening etiolgies. Differential Diagnosis Differential Diagnoses: The differential diagnosis associated with the presentation includes (pneumonia, covid, SARS, Strep) Admission/Observation Consideration of admission/observation: Escalation of care including admission/observation considered Lab Data [facility] Lab Attestation statement: I reviewed the patient's lab results. Labs: Lab Results 07/10/25 Range/Units 12:22 COVID-19 (MAURY) Negative (Negative) COVID-19 Clin Com See Note Influenza Type A (PATRICK) Negative (Negative) Influenza Type B (PATRICK) Negative (Negative) Influenza A & B Note See Note Independent Interpretation I performed an independent interpretation of an: Plain X-Ray Independent Historian Clinical information obtained from an independent historian. History obtained from or confirmed by: Other (patient) Prescription Management I considered prescription management with: Antibiotic and Other (prednisoen) Discharge Plan Discharge Clinical Impression: Asthma with acute exacerbation Patient Disposition: Home, Self-Care Instructions: Asthma (ED) Additional Instructions: You will be discharged with prednisone coughing medication antibiotic. History physical exam indicated asthma bronchitis exacerbation. Return to the ED immediately for any chest pain, shortness of breath, weakness, dizziness, leg swelling, calf pain, coughing up blood, or any other concerning symptoms. Continue using your albuterol inhaler as needed. Prescriptions: New prednisone 20 mg tablet 40 mg PO DAILY 5 Days Qty: 10 0RF azithromycin 250 mg tablet See Rx Instructions .ROUTE .COMPLEX Qty: 6 0RF Rx Instructions: For 250 mg dose pack: take 500 mg today (day 1), then 250 mg for 4 days (days 2-5) benzonatate 200 mg capsule 200 mg PO TID PRN (Reason: cough) Qty: 15 0RF No Action acetaminophen 500 mg tablet 500 mg PO Q6H PRN (Reason: pain) Qty: 20 0RF sumatriptan succinate 50 mg tablet See Rx Instructions .ROUTE .COMPLEX Qty: 7 0RF Rx Instructions: take 1 tab at onset of headache; if no relief may repeat 1 tab after at least 2 hrs; max = 4 tabs/24 hr amoxicillin-pot clavulanate 875-125 mg tablet 1 tab PO BID Qty: 20 0RF sulfamethoxazole-trimethoprim [Bactrim DS] 800-160 mg tablet 1 tab PO BID Qty: 20 0RF benzonatate 100 mg Capsule 200 mg PO TID 5 Days Qty: 30 0RF prednisone 20 mg tablet 40 mg PO DAILY Qty: 8 0RF albuterol sulfate 90 mcg/actuation HFA aerosol inhaler 2 puff inhalation Q6H PRN (Reason: shortness of breath or wheezing) Qty: 8.5 0RF prednisone 20 mg tablet 40 mg PO DAILY Qty: 10 0RF fluticasone propionate [24 Hour Allergy Relief] 50 mcg/actuation spray,suspension 1 spray intranasal BID Qty: 16 0RF Rx Instructions: administer into each nostril hydrocodone-homatropine [Hycodan] 5-1.5 mg/5 mL (5 mL) syrup 5 ml PO Q6H PRN (Reason: cough) Qty: 60 0RF Rx Instructions: Partial Fill upon patient request. azithromycin [Zithromax Z-Walter] 250 mg tablet See Rx Instructions .ROUTE .COMPLEX Qty: 6 0RF Rx Instructions: take 500 mg today (day 1), then 250 mg for 4 days (days 2-5) cephalexin 500 mg capsule 500 mg PO TID 5 Days Qty: 15 0RF Stand Alone Forms: Work/School Release Interventions: ED Discharge Assessment Last Done: 07/10/25 14:38 Discharge Date/Time: 07/10/25 14:38 Print Language: German
[2025-07-10 12:48] LABS: COVID-19 Test Negative (Negative); IDNOW Serial# 08D9AD1C; IDNOW Serial# 6674DD1D; Influenza B2 Negative (Negative)
[2025-07-10 13:05] VITALS: PULSE 92; RESP 18; O2SAT 99
[2025-07-10] MEDS: Albuterol Sulfate 2.5 MG, Albuterol/Iprat 2.5/0.5MG 3 ML 3 ML INHALE (13:10)
--- OUTSIDE RECORDS SUMMARY | 2025-07-10 13:11 | XMS_ITS | Clinical Summary ---
Author Organization [facility] Address [address] [place] [address] Phone Care Team Providers Care Pole Inspector Name Role Phone Dorothy Garner MD Primary Care Provider Medications vit no.[id number] ( Plus Vitamin-Mineral) 27 mg iron- 1 mg tabletIndication s:Unsure of LMP (last menstrual period) as reason for ultrasound scan Take 1 tablet by mouth 1 (one) time each day. 90 tablet 3 04/20/2025 Active Encounters Date Type Department Care Team Description 05/03/2025 Telephone Obstetrics and [address] [phone] Azra Marion RN 05/02/2025 Telephone Obstetrics & Gynecology [address] [phone] Georgia Brooks CNM 04/20/2025 Telephone Obstetrics & Gynecology [address] [phone] Georgia Brooks CNM from Last 3 Months Surgical History Surgery Date Site/Laterality Comments OTHER SURGICAL HISTORY PROCEDURE: DENIES PREVIOUS SURGERY Medical History Medical History Date Comments Mild intermittent asthma, uncomplicated DX:Mild intermittent asthma, uncomplicated Family History Medical History Relation Name Comments No Known Problems Brother No Known Problems Father Diabetes Maternal Grandmother Other cancer Maternal Grandmother ovarian cancer No Known Problems Mother No Known Problems Sister Relation Name Status Comments Brother Alive Father Alive Maternal Grandfather Maternal Grandmother Alive Mother Alive Paternal Grandfather Paternal Grandmother Sister Alive Social History Tobacco Use Types Packs/Day Years Used Date Smoking Tobacco: Never Smokeless Tobacco: Never Alcohol Use Standard Drinks/Week Comments Not Currently 0 (1 standard drink = 0.6 oz pur e alcohol) Comments Unknown Sex and Gender Information Value Date Recorded Sex Assigned at Not on file Legal Sex Female 8:49 PM EST Gender Identity Not on file Sexual Orientation Not on file Obstetrics History Para Term AB IAB SAB Ectopic Multiple Livin g Live Births 1 1 1 1 1 Date Outcome GA Total Labor Labor/2nd/3rd Weight Sex Type Anes PTL Shanda A1 A5 Name Clin 2022 Term 39w 1d Vag-S pont Living Last Filed Vital Signs Vital Sign Reading Time Taken Comments Blood Pressure 109/73 11/05/2023 10:10 AM EST Pulse 72 11/05/2023 10:10 AM EST Temperature - - Respiratory Rate - - Oxygen Saturation - - Inhaled Oxygen Concentration - - Weight 78.9 kg (174 lb) 11/05/2023 10:10 AM EST Height 160 cm (5' 3 ) 08/25/2023 1:05 PM EST Body Mass Index 30.82 08/25/2023 1:05 PM EST Plan of Treatment Health Maintenance Due Date Last Done Comments Pneumococcal Vaccine: Pediatrics (0 to 5 Years) and At-Risk Patients (6 to 49 Years) (1 of 1 - PPSV23, PCV20, or PCV21) 2006 07/23/2001, 2000, 2000, Additional history exists HIV Screening 10/24/2023 Hepatitis C Screening 10/24/2023 Social Influencers of Health Screening 10/24/2023 Depression Screening 09/29/2024 COVID-19 Vaccine (2 - season) 2025 01/05/2021 Influenza Vaccine (#1) 2025 , 02/28/2021, 06/27/2019, Additional history exists Cervical Cancer Screening: Pap Smear 03/20/2026 03/20/2023 DTaP,Tdap,and Td Vaccines (9 - Td or Tdap) 04/29/2034 04/29/2024, 07/21/2023, 10/01/2011, Additional history exists RSV Immunization Adult Patients (1 - 1-dose 75+ series) 2075 Hepatitis B Vaccines Completed 05/21/2001, 2000, 2000 HIB Vaccines Completed 07/23/2001, 09/29, 2000, Additional history exists IPV Vaccines Completed 07/13/2004, 09/30, 2000, Additional history exists MMR Vaccines Completed 07/13/2004, 04/14/2001 Varicella Vaccines Completed 04/25/2008, 04/14/2001 HPV Vaccines Completed 11/24/2014, 05/30, 10/01/2011 Hepatitis A Vaccines Completed 02/06/2016, 11/24/19 15 Meningococcal ACWY Vaccine Completed 05/01/2017, Meningococcal B Vaccine Aged Out No l onger eligible based on patient's age to complete this topic RSV Immunization Patients Under 20 months Aged Out No longer eligible based on patient's age to complete this topic Procedures Procedure Name Priority Date/Time Associated Diagnosis Comments HCG, QUANTITATIVE Routine 05/13/2025 11: 43 AM EDT Early stage of US OB ULTRASOUND Routine 05/03/2025 4:35 PM EDT HCG, QUANTITATIVE Routine 04/25/2025 2:5 7 PM EDT Unsure of LMP (last menstrual period) as reason for ultrasound scan HCG, QUANTITATIVE Routine 04/20/2025 11: 55 AM EDT Unsure of LMP (last menstrual period) as reason for ultrasound scan PAP SMEAR Routine 03/20/2023 from Last 3 Months or Most Recently Relevant to Health Maintenance Results * HCG, quantitative (05/13/2025 11:43 AM EDT) Only the most recent of3 resultswithin the time period is included. hCG Quant 1 mIU/mL LAB CHEMISTRY METHOD 05/13/2025 1:32 PM EDT [facility] Blood Venous blood specimen / Unknown Venipuncture / Unknown 05/13/2025 11:43 AM EDT 05/13/2025 12:11 PM EDT Narrative [facility] ([facility] - 05/13/2025 1:32 PM EDT Quantitative HCG Reference Ranges Time after Conception MIU/ML 0.2-1 Week 5-50 1-2 Weeks 50-500 2-3 Weeks 100-5,000 3-4 Weeks 500-10,000 4-5 Weeks 1,000-50,000 5-6 Weeks 10,000-100,000 6-8 Weeks 15,000-200,000 2-3 Months 10,000-100,000 2nd Trimester 1,000-94,000 3rd Trimester 2,500-90,000 Non- Females 1-3 Amna RUIZ LAB BLOOD ORDERABLES Final Res ult Performing Organization Address City/[facility]/ZIP Co de Phone Number [facility] [address] [place] [address], [place] [phone] * US OB ULTRASOUND (05/03/2025 4:35 PM EDT) Anatomical Region Laterality Modality Body Ultrasound us Historical Provider MD DURBIN OB US PROCEDURES Bel l Result * Pap smear (03/20/2023) 03/20/2023 Narrative HISTORICAL TESTING LAB RESULTING AGENCY - 03/28/2023 9:51 AM EDT [id number] THINPREP PAP, IMAGED: NEGATIVE FOR SQUAMOUS INTRAEPITHELIAL LESION AND MALIGNANCY . FUNGAL ORGANISMS MORPHOLOGICALLY CONSISTENT WITH ELIZABETH SPP. ARMIN WINN(ASCP) (CASE ELECTRONICALLY SIGNED 03 28 2023) ADEQUACY: SATISFACTORY ENDOCERVICAL/TRANSFORMATION ZONE COMPONENT PRESENT. SOURCE: THINPREP PAP HPV IF ASCUS, CERVICAL, IMAGED CLINICAL INFORMATION: HPV IF DIAGNOSIS OF ASCUS. , LMP 12/12/2022, [Z12.4] Georgia Brooks CNM LAB CYTOLOGY ORDERABLES Final Result HISTORICAL TESTING LAB RESULTING AGENCY from Last 3 Months or Most Recently Relevant to Health Maintenance Insurance [facility] [employer] MEDICAID - [place] Care Teams Pole Inspector Relationship Specialty Start Date End Date Dorothy Garner MD [address] [place] [address] [place] [id number] PCP - General 01/27/23
--- OUTSIDE RECORDS SUMMARY | 2025-07-10 13:11 | XMS_ITS | Clinical Summary ---
Author Organization [employer] Address [address] [place] [address] Care Team Providers Care Psychology Professor Name Role Phone Unavailable Primary Care Provider Unavailabl e Social History Tobacco Use Types Packs/Day Years Used Date Smoking Tobacco: Never Assessed Comments Unknown Sex and Gender Information Value Date Recorded Sex Assigned at Not on file Legal Sex Female 10:43 AM EDT Gender Identity Not on file Sexual Orientation Not on file Plan of Treatment Health Maintenance Due Date Last Done Comments Depression Screening 2000 Disability Screening 2000 Alcohol/Substance Use Screening 2012 Tobacco Screening 2012 Family Planning (PISQ) 2015 HPV Vaccines (1 - 3-dose series) 2015 DTaP/Tdap/Td Vaccines (1 - Tdap) 2019 Hepatitis B Vaccines (1 of 3 - 19+ 3-dose series) 2019 Pap Smear 2021 COVID-19 Vaccine (1 - 2023-2 5 season) 2025 Influenza Vaccine (#1) 2025 Zoster Vaccines (1 of 2) 2050 RSV Patients and Pa tients Aged 60 years or older (1 - 1-dose 75+ series) 2075 HIB Vaccines Aged Out No longer eligi ble based on patient's age to complete this topic Hepatitis A Vaccines Aged Out No long er eligible based on patient's age to complete this topic IPV Vaccines Aged Out No longer eligi ble based on patient's age to complete this topic Meningococcal B Vaccine Aged Out No l onger eligible based on patient's age to complete this topic Meningococcal Vaccine Aged Out No alexandra tom eligible based on patient's age to complete this topic Pneumococcal Vaccine: Pediat rics (0 to 5 Years) and At-Risk Patients (6 to 49) Years Aged Out No longer eligible b ased on patient's age to complete this topic RSV under 20 months Aged Out No longe r eligible based on patient's age to complete this topic Rotavirus Vaccines Aged Out No longer eligible based on patient's age to complete this topic
[2025-07-10 14:38] VITALS: BP 132/64; PULSE 92; RESP 18; TEMP 36.4; O2SAT 96
== END 2025-07-10 14:38 | disposition home or self-care (01) ==
PROVIDERS: Physician Assistant Medical; Emergency Provider Emergency Medicine
DX: J45.901 Unspecified asthma with (acute) exacerbation (principal); R07.89 Other chest pain; R05.9 Cough, unspecified; R50.9 Fever, unspecified; Z03.818 Encounter for observation for suspected exposure to other biological agents ruled out
CPT/HCPCS: 71046; 87502; 87635; 94640; 99283; 99284

== ENCOUNTER → 2025-07-10 11:34 | Outpatient (BNV) | payer OTHER, SELFPAY | PROVIDERS: PCP Specialist; Visit Provider Radiology Vascular & Interventional Radiology | DX: R07.89 Other chest pain (principal) | CPT/HCPCS: 71046 ==